=== PATIENT | male | born 1940 | race Caucasian/White ===

== ENCOUNTER 2018-04-22 14:08 | Outpatient (CLI) | payer OTHER, MEDICARE ==
[2018-04-22 14:52] LABS: TYPE AND SCREEN 1
== END 2018-04-22 16:30 | disposition home or self-care (01) ==
LOC: M INFU 14:08
DX: E85.9 Amyloidosis, unspecified (principal); N04.9 Nephrotic syndrome with unspecified morphologic changes; E03.9 Hypothyroidism, unspecified; M54.2 Cervicalgia; F32.9 Major depressive disorder, single episode, unspecified; E78.5 Hyperlipidemia, unspecified; Z79.82 Long term (current) use of aspirin; Z79.899 Other long term (current) drug therapy
CPT/HCPCS: P9047

== ENCOUNTER 2018-04-24 07:42 | Outpatient (CLI) | payer OTHER, MEDICARE ==
[2018-04-24 08:16] LABS: TYPE AND SCREEN 1
== END 2018-04-24 09:45 | disposition home or self-care (01) ==
LOC: M INFU 07:42
PROVIDERS: Orthopaedic Surgery
DX: E85.9 Amyloidosis, unspecified (principal); F32.9 Major depressive disorder, single episode, unspecified; E78.5 Hyperlipidemia, unspecified; N18.9 Chronic kidney disease, unspecified; E03.9 Hypothyroidism, unspecified; M54.2 Cervicalgia; K76.9 Liver disease, unspecified; N04.9 Nephrotic syndrome with unspecified morphologic changes; Z79.899 Other long term (current) drug therapy
CPT/HCPCS: P9047

== ENCOUNTER 2018-04-26 11:18 | Outpatient (CLI) | payer OTHER, MEDICARE ==
[2018-04-26 11:41] LABS: TYPE AND SCREEN 1
== END 2018-04-26 13:15 | disposition home or self-care (01) ==
LOC: M INFU 11:18
DX: E85.9 Amyloidosis, unspecified (principal); Z79.82 Long term (current) use of aspirin; Z79.899 Other long term (current) drug therapy
CPT/HCPCS: P9047

== ENCOUNTER 2018-04-29 12:01 | Outpatient (CLI) | payer OTHER, MEDICARE ==
[2018-04-29 12:30] LABS: TYPE AND SCREEN 1
== END 2018-04-29 14:10 | disposition home or self-care (01) ==
LOC: M INFU 12:01
DX: E85.9 Amyloidosis, unspecified (principal); Z79.82 Long term (current) use of aspirin; Z79.899 Other long term (current) drug therapy
CPT/HCPCS: P9047

== ENCOUNTER → 2018-04-30 | Outpatient (CLI) | payer OTHER, MEDICARE ==
[~2018-04-30] MED LIST: LIDOCAINE 2% MDV 20 ML VIAL As Ordered; MIDAZOLAM INJ 2 MG/2 ML VIAL (J2250) As Ordered; ceFAZolin 1GM INJ (J0690 PER 500MG) As Ordered; fentaNYL 100 MCG/2 ML INJECTION (J3010) As Ordered
== END | disposition home or self-care (01) ==
LOC: M IRPRO 09:30
DX: E85.81 Light chain (AL) amyloidosis (principal)
CPT/HCPCS: 36561

== ENCOUNTER 2018-05-01 11:21 | Outpatient (CLI) | payer OTHER, MEDICARE ==
[2018-05-01 11:59] LABS: TYPE AND SCREEN 1
[2018-05-01] MEDS: SODIUM CHLORIDE 0.9% INJ 10 ML SYR IV (13:08)
== END 2018-05-01 13:20 | disposition home or self-care (01) ==
LOC: M INFU 11:21
DX: E85.9 Amyloidosis, unspecified (principal); Z79.82 Long term (current) use of aspirin; Z79.899 Other long term (current) drug therapy
CPT/HCPCS: P9047

== ENCOUNTER 2018-05-03 11:24 | Outpatient (CLI) | payer OTHER, MEDICARE ==
[2018-05-03 13:01] LABS: TYPE AND SCREEN 1
[2018-05-03] MEDS: SODIUM CHLORIDE 0.9% INJ 10 ML SYR IV (14:22)
== END 2018-05-03 14:35 | disposition home or self-care (01) ==
LOC: M INFU 11:24
DX: E85.9 Amyloidosis, unspecified (principal); Z79.82 Long term (current) use of aspirin; Z79.899 Other long term (current) drug therapy
CPT/HCPCS: P9047

== ENCOUNTER 2018-05-10 12:25 | Outpatient (CLI) | payer OTHER, MEDICARE ==
[2018-05-10 12:55] LABS: TYPE AND SCREEN 1
[2018-05-10] MEDS: SODIUM CHLORIDE 0.9% INJ 10 ML SYR IV (13:54)
== END 2018-05-10 14:15 | disposition home or self-care (01) ==
LOC: M INFU 12:25
DX: E85.9 Amyloidosis, unspecified (principal); Z79.82 Long term (current) use of aspirin; Z79.899 Other long term (current) drug therapy
CPT/HCPCS: P9047

== ENCOUNTER 2018-05-13 11:10 | Outpatient (CLI) | payer OTHER, MEDICARE ==
[2018-05-13 11:26] LABS: TYPE AND SCREEN 1
== END 2018-05-13 13:00 | disposition home or self-care (01) ==
LOC: M INFU 11:10
DX: E85.9 Amyloidosis, unspecified (principal); Z79.82 Long term (current) use of aspirin; Z79.899 Other long term (current) drug therapy
CPT/HCPCS: P9047

== ENCOUNTER 2018-05-15 12:22 | Outpatient (CLI) | payer OTHER, MEDICARE ==
[2018-05-15 12:37] LABS: TYPE AND SCREEN 1
[2018-05-15] MEDS: SODIUM CHLORIDE 0.9% INJ 10 ML SYR IV (13:54)
== END 2018-05-15 14:00 | disposition home or self-care (01) ==
LOC: M INFU 12:22
DX: E85.9 Amyloidosis, unspecified (principal); Z79.82 Long term (current) use of aspirin; Z79.899 Other long term (current) drug therapy
CPT/HCPCS: P9047

== ENCOUNTER 2018-05-17 12:21 | Outpatient (CLI) | payer OTHER, MEDICARE ==
[2018-05-17 12:47] LABS: TYPE AND SCREEN 1
[2018-05-17] MEDS: SODIUM CHLORIDE 0.9% INJ 10 ML SYR IV (13:51)
== END 2018-05-17 14:00 | disposition home or self-care (01) ==
LOC: M INFU 12:21
DX: E85.9 Amyloidosis, unspecified (principal); Z79.82 Long term (current) use of aspirin; Z79.899 Other long term (current) drug therapy
CPT/HCPCS: P9047

== ENCOUNTER 2018-05-20 11:23 | Outpatient (CLI) | payer OTHER, MEDICARE ==
[2018-05-20 12:36] LABS: TYPE AND SCREEN 1
[2018-05-20] MEDS: SODIUM CHLORIDE 0.9% INJ 10 ML SYR IV (13:39)
== END 2018-05-20 14:15 | disposition home or self-care (01) ==
LOC: M INFU 11:23
DX: E85.9 Amyloidosis, unspecified (principal); Z79.82 Long term (current) use of aspirin; Z79.899 Other long term (current) drug therapy
CPT/HCPCS: P9047

== ENCOUNTER 2018-05-22 12:30 | Outpatient (CLI) | payer OTHER ==
[2018-05-22 12:48] LABS: TYPE AND SCREEN 1
[2018-05-22] MEDS: SODIUM CHLORIDE 0.9% INJ 10 ML SYR IV (14:00)
== END 2018-05-22 14:10 | disposition home or self-care (01) ==
LOC: M INFU 12:30
DX: E85.9 Amyloidosis, unspecified (principal); E78.5 Hyperlipidemia, unspecified; E03.9 Hypothyroidism, unspecified; N04.9 Nephrotic syndrome with unspecified morphologic changes; M54.2 Cervicalgia; Z79.82 Long term (current) use of aspirin; Z79.899 Other long term (current) drug therapy
CPT/HCPCS: P9047

== ENCOUNTER 2018-05-24 12:08 | Outpatient (CLI) | payer OTHER ==
[2018-05-24 12:22] LABS: TYPE AND SCREEN 1
[2018-05-24] MEDS: SODIUM CHLORIDE 0.9% INJ 10 ML SYR IV (13:50)
== END 2018-05-24 14:00 | disposition home or self-care (01) ==
LOC: M INFU 12:08
DX: E85.9 Amyloidosis, unspecified (principal); Z79.82 Long term (current) use of aspirin; Z79.899 Other long term (current) drug therapy; E78.5 Hyperlipidemia, unspecified; E03.9 Hypothyroidism, unspecified; R80.9 Proteinuria, unspecified
CPT/HCPCS: P9047

== ENCOUNTER 2018-05-27 12:26 | Outpatient (CLI) | payer OTHER ==
[2018-05-27 12:50] LABS: TYPE AND SCREEN 1
[2018-05-27] MEDS: SODIUM CHLORIDE 0.9% INJ 10 ML SYR IV (13:57)
== END 2018-05-27 14:20 | disposition home or self-care (01) ==
LOC: M INFU 12:26
DX: E85.9 Amyloidosis, unspecified (principal); E78.5 Hyperlipidemia, unspecified; E03.9 Hypothyroidism, unspecified; M54.2 Cervicalgia; Z79.899 Other long term (current) drug therapy
CPT/HCPCS: P9047

== ENCOUNTER 2018-05-29 10:50 | Outpatient (CLI) | payer OTHER ==
[~2018-05-29 10:50] MED LIST changes: -LIDOCAINE 2% MDV 20 ML VIAL As Ordered; -MIDAZOLAM INJ 2 MG/2 ML VIAL (J2250) As Ordered; +SODIUM CHLORIDE 0.9% INJ 10 ML SYR IV; -ceFAZolin 1GM INJ (J0690 PER 500MG) As Ordered; -fentaNYL 100 MCG/2 ML INJECTION (J3010) As Ordered
[2018-05-29 11:06] LABS: TYPE AND SCREEN 1
== END 2018-05-29 12:30 | disposition home or self-care (01) ==
LOC: M INFU 10:50
DX: E85.9 Amyloidosis, unspecified (principal); E78.5 Hyperlipidemia, unspecified; M54.2 Cervicalgia; N17.8 Other acute kidney failure; N04.9 Nephrotic syndrome with unspecified morphologic changes; E03.9 Hypothyroidism, unspecified; Z79.82 Long term (current) use of aspirin; Z79.899 Other long term (current) drug therapy
CPT/HCPCS: P9047

== ENCOUNTER 2018-05-31 11:38 | Outpatient (CLI) | payer OTHER ==
[2018-05-31 12:04] LABS: TYPE AND SCREEN 1
[2018-05-31] MEDS: SODIUM CHLORIDE 0.9% INJ 10 ML SYR IV (13:09)
== END 2018-05-31 13:30 | disposition home or self-care (01) ==
LOC: M INFU 11:38
DX: E85.9 Amyloidosis, unspecified (principal); Z79.82 Long term (current) use of aspirin; Z79.899 Other long term (current) drug therapy
CPT/HCPCS: P9047

== ENCOUNTER 2018-06-03 11:32 | Outpatient (CLI) | payer OTHER ==
[2018-06-03 11:44] LABS: TYPE AND SCREEN 1
[2018-06-03] MEDS: SODIUM CHLORIDE 0.9% INJ 10 ML SYR IV (13:05)
== END 2018-06-03 13:20 | disposition home or self-care (01) ==
LOC: M INFU 11:32
DX: E85.9 Amyloidosis, unspecified (principal); Z79.82 Long term (current) use of aspirin; Z79.899 Other long term (current) drug therapy
CPT/HCPCS: P9047

== ENCOUNTER 2018-06-05 10:46 | Outpatient (CLI) | payer OTHER, MEDICARE ==
[2018-06-05 11:07] LABS: TYPE AND SCREEN 1
[2018-06-05] MEDS: SODIUM CHLORIDE 0.9% INJ 10 ML SYR IV (12:10)
== END 2018-06-05 12:20 ==
LOC: M INFU 10:46
DX: E85.9 Amyloidosis, unspecified (principal); Z79.82 Long term (current) use of aspirin; Z79.899 Other long term (current) drug therapy
CPT/HCPCS: P9047

== ENCOUNTER 2018-06-07 10:47 | Outpatient (CLI) | payer OTHER, MEDICARE ==
[2018-06-07 11:10] LABS: TYPE AND SCREEN 1
== END 2018-06-07 12:35 | disposition home or self-care (01) ==
LOC: M INFU 10:47
DX: E85.9 Amyloidosis, unspecified (principal); Z79.82 Long term (current) use of aspirin; Z79.899 Other long term (current) drug therapy
CPT/HCPCS: P9047

== ENCOUNTER 2018-06-10 10:35 | Outpatient (CLI) | payer OTHER, MEDICARE ==
[2018-06-10 11:26] LABS: TYPE AND SCREEN 1
[2018-06-10] MEDS: SODIUM CHLORIDE 0.9% INJ 10 ML SYR IV (12:38)
== END 2018-06-10 12:45 | disposition home or self-care (01) ==
LOC: M INFU 10:35
DX: E85.9 Amyloidosis, unspecified (principal); Z79.82 Long term (current) use of aspirin; Z79.899 Other long term (current) drug therapy
CPT/HCPCS: P9047

== ENCOUNTER → 2018-06-11 | Outpatient (REF) | payer OTHER, MEDICARE ==
[2018-06-11 18:24] LABS: TOTAL PROTEIN,RANDOM URINE 2477.7 MG/DL (0.0-12.0); URINE TOTAL PROTEIN 2477.7 MG/DL (0-12)
[2018-06-12 12:03] LABS: ALBUMIN 1.98 GM/DL (3.29-5.55); ALBUMIN % 39.6 % (55.8-66.1); ALPHA-1-GLOBULIN % 7.2 % (2.9-4.9); ALPHA-2-GLOBULINS % 27.7 % (7.1-11.8); BETA-1-GLOBULINS % 5.4 % (4.7-7.2); BETA-2-GLOBULINS % 8.2 % (3.2-6.5); GAMMA GLOBULIN % 11.9 % (11.1-18.8)
[2018-06-12 12:04] LABS: ALPHA-1-GLOBULINS 0.36 GM/DL (0.17-0.41); ALPHA-2-GLOBULINS 1.39 GM/DL (0.42-0.99); BETA-1-GLOBULINS 0.27 GM/DL (0.28-0.60); BETA-2-GLOBULINS 0.41 GM/DL (0.19-0.55)
[2018-06-13 15:02] LABS: UPEP INTERPRETATION NO M-SPIKE NOTED; URINE VOLUME RANDOM ML
[2018-06-14 00:07] LABS: FREE KAPPA LIGHT CHAINS SERUM 66.4 mg/L (3.3-19.4); FREE LAMBDA LIGHT CHAINS SERUM 40.6 mg/L (5.7-26.3); KAPPA/LAMBDA RATIO SERUM 1.64 (0.26-1.65)
== END ==
LOC: M LAB REF 16:51
DX: E85.9 Amyloidosis, unspecified (principal)
CPT/HCPCS: 84165

== ENCOUNTER 2018-06-12 10:51 | Outpatient (CLI) | payer OTHER, MEDICARE ==
[2018-06-12 11:12] LABS: TYPE AND SCREEN 1
[2018-06-12] MEDS: SODIUM CHLORIDE 0.9% INJ 10 ML SYR IV (12:23)
== END 2018-06-12 12:30 | disposition home or self-care (01) ==
LOC: M INFU 10:51
DX: E85.9 Amyloidosis, unspecified (principal); Z79.82 Long term (current) use of aspirin; Z79.899 Other long term (current) drug therapy
CPT/HCPCS: P9047

== ENCOUNTER → 2018-06-13 | Outpatient (REF) | payer OTHER, MEDICARE ==
[2018-06-13 15:56] LABS: TOTAL VOLUME, URINE 2200 ML
[2018-06-13 16:44] LABS: TOTAL PROTEIN 24 HOUR URINE 24052.6 MG/24HR (50-150); URINE TOTAL PROTEIN 1093.3 MG/DL (0-12)
== END ==
LOC: M LAB REF 15:43
DX: C64.9 Malignant neoplasm of unspecified kidney, except renal pelvis (principal)
CPT/HCPCS: 81050

== ENCOUNTER 2018-06-14 10:42 | Outpatient (CLI) | payer OTHER, MEDICARE ==
[2018-06-14] MEDS: SODIUM CHLORIDE 0.9% INJ 10 ML SYR IV (09:00)
[2018-06-14 10:54] LABS: TYPE AND SCREEN 1
== END 2018-06-14 12:30 | disposition home or self-care (01) ==
LOC: M INFU 10:42
DX: E85.9 Amyloidosis, unspecified (principal); Z79.82 Long term (current) use of aspirin; Z79.899 Other long term (current) drug therapy
CPT/HCPCS: P9047

== ENCOUNTER 2018-06-17 10:57 | Outpatient (CLI) | payer OTHER, MEDICARE ==
[2018-06-17 11:15] LABS: TYPE AND SCREEN 1
== END 2018-06-17 12:50 | disposition home or self-care (01) ==
LOC: M INFU 10:57
DX: E85.9 Amyloidosis, unspecified (principal); Z79.82 Long term (current) use of aspirin; Z79.899 Other long term (current) drug therapy
CPT/HCPCS: P9047

== ENCOUNTER 2018-06-19 10:56 | Outpatient (CLI) | payer OTHER, MEDICARE ==
[2018-06-19 11:21] LABS: TYPE AND SCREEN 1
[2018-06-19] MEDS: SODIUM CHLORIDE 0.9% INJ 10 ML SYR IV (12:00)
== END 2018-06-19 12:35 | disposition home or self-care (01) ==
LOC: M INFU 10:56
DX: E85.9 Amyloidosis, unspecified (principal); I42.8 Other cardiomyopathies; E78.2 Mixed hyperlipidemia; N04.9 Nephrotic syndrome with unspecified morphologic changes; E03.9 Hypothyroidism, unspecified; F32.9 Major depressive disorder, single episode, unspecified; M54.2 Cervicalgia; Z79.82 Long term (current) use of aspirin; Z79.899 Other long term (current) drug therapy; Z96.659 Presence of unspecified artificial knee joint
CPT/HCPCS: P9047

== ENCOUNTER 2018-06-21 10:44 | Outpatient (CLI) | payer OTHER, MEDICARE ==
[2018-06-21 10:56] LABS: TYPE AND SCREEN 1
== END 2018-06-21 12:15 | disposition home or self-care (01) ==
LOC: M INFU 10:44
DX: E85.9 Amyloidosis, unspecified (principal); Z79.899 Other long term (current) drug therapy
CPT/HCPCS: P9047

== ENCOUNTER 2018-06-24 11:00 | Outpatient (CLI) | payer OTHER, MEDICARE ==
[2018-06-24 11:13] LABS: TYPE AND SCREEN 1
[2018-06-24] MEDS: SODIUM CHLORIDE 0.9% INJ 10 ML SYR IV (12:30)
== END 2018-06-24 12:45 | disposition home or self-care (01) ==
LOC: M INFU 11:00
DX: E85.9 Amyloidosis, unspecified (principal); Z79.899 Other long term (current) drug therapy; Z79.82 Long term (current) use of aspirin
CPT/HCPCS: P9047

== ENCOUNTER 2018-06-28 11:01 | Outpatient (CLI) | payer OTHER, MEDICARE ==
[2018-06-28 11:21] LABS: TYPE AND SCREEN 1
[2018-06-28] MEDS: SODIUM CHLORIDE 0.9% INJ 10 ML SYR IV (12:18)
== END 2018-06-28 12:45 | disposition home or self-care (01) ==
LOC: M INFU 11:01
DX: E85.9 Amyloidosis, unspecified (principal); E78.5 Hyperlipidemia, unspecified; I51.7 Cardiomegaly; N04.9 Nephrotic syndrome with unspecified morphologic changes; E03.9 Hypothyroidism, unspecified; M19.90 Unspecified osteoarthritis, unspecified site; M54.2 Cervicalgia; F32.9 Major depressive disorder, single episode, unspecified; Z79.899 Other long term (current) drug therapy
CPT/HCPCS: P9047

== ENCOUNTER 2018-07-01 11:01 | Outpatient (CLI) | payer OTHER, MEDICARE ==
[2018-07-01 11:15] LABS: TYPE AND SCREEN 1
== END 2018-07-01 12:45 | disposition home or self-care (01) ==
LOC: M INFU 11:01
DX: E85.9 Amyloidosis, unspecified (principal); E78.5 Hyperlipidemia, unspecified; E03.9 Hypothyroidism, unspecified; M19.90 Unspecified osteoarthritis, unspecified site; M54.89 Other dorsalgia; F32.9 Major depressive disorder, single episode, unspecified; Z79.82 Long term (current) use of aspirin; Z79.899 Other long term (current) drug therapy
CPT/HCPCS: P9047

== ENCOUNTER 2018-07-03 10:38 | Outpatient (CLI) | payer OTHER, MEDICARE ==
[2018-07-03 11:15] LABS: TYPE AND SCREEN 1
[2018-07-03] MEDS: SODIUM CHLORIDE 0.9% INJ 10 ML SYR IV (12:27)
== END 2018-07-03 12:35 | disposition home or self-care (01) ==
LOC: M INFU 10:38
DX: E85.9 Amyloidosis, unspecified (principal); E78.5 Hyperlipidemia, unspecified; N40.1 Benign prostatic hyperplasia with lower urinary tract symptoms; E03.9 Hypothyroidism, unspecified; M19.90 Unspecified osteoarthritis, unspecified site; M54.89 Other dorsalgia; Z79.82 Long term (current) use of aspirin; Z79.899 Other long term (current) drug therapy
CPT/HCPCS: P9047

== ENCOUNTER 2018-07-10 13:11 | Outpatient (CLI) | payer OTHER, MEDICARE ==
[2018-07-10 13:54] LABS: TYPE AND SCREEN 1
[2018-07-10] MEDS: SODIUM CHLORIDE 0.9% INJ 10 ML SYR IV (15:10)
== END 2018-07-10 15:10 | disposition home or self-care (01) ==
LOC: M INFU 13:11
DX: E85.9 Amyloidosis, unspecified (principal); E78.5 Hyperlipidemia, unspecified; E03.9 Hypothyroidism, unspecified; N40.0 Benign prostatic hyperplasia without lower urinary tract symptoms; Z79.82 Long term (current) use of aspirin; Z79.899 Other long term (current) drug therapy
CPT/HCPCS: 83883

== ENCOUNTER 2018-07-12 10:58 | Outpatient (CLI) | payer OTHER ==
[2018-07-12 11:27] LABS: TYPE AND SCREEN 1
[2018-07-12] MEDS: SODIUM CHLORIDE 0.9% INJ 10 ML SYR IV (12:25)
== END 2018-07-12 12:45 | disposition home or self-care (01) ==
LOC: M INFU 10:58
DX: E85.9 Amyloidosis, unspecified (principal); E78.5 Hyperlipidemia, unspecified; N40.0 Benign prostatic hyperplasia without lower urinary tract symptoms; E03.9 Hypothyroidism, unspecified; F32.9 Major depressive disorder, single episode, unspecified; Z79.899 Other long term (current) drug therapy
CPT/HCPCS: P9047

== ENCOUNTER 2018-07-15 10:49 | Outpatient (CLI) | payer OTHER ==
[2018-07-15 11:27] LABS: TYPE AND SCREEN 1
[2018-07-15] MEDS: SODIUM CHLORIDE 0.9% INJ 10 ML SYR IV (12:23)
== END 2018-07-15 13:10 | disposition home or self-care (01) ==
LOC: M INFU 10:49
DX: E85.9 Amyloidosis, unspecified (principal); E78.5 Hyperlipidemia, unspecified; N40.0 Benign prostatic hyperplasia without lower urinary tract symptoms; E03.9 Hypothyroidism, unspecified; F32.9 Major depressive disorder, single episode, unspecified; Z79.899 Other long term (current) drug therapy
CPT/HCPCS: P9047

== ENCOUNTER 2018-07-18 11:06 | Outpatient (CLI) | payer OTHER ==
[2018-07-18 11:40] LABS: TYPE AND SCREEN 1
[2018-07-18] MEDS: SODIUM CHLORIDE 0.9% INJ 10 ML SYR IV (12:39)
== END 2018-07-18 12:45 | disposition home or self-care (01) ==
LOC: M INFU 11:06
DX: E85.9 Amyloidosis, unspecified (principal); Z79.82 Long term (current) use of aspirin; Z79.899 Other long term (current) drug therapy
CPT/HCPCS: P9047

== ENCOUNTER 2018-07-22 10:38 | Outpatient (CLI) | payer OTHER ==
[2018-07-22 11:09] LABS: TYPE AND SCREEN 1
[2018-07-22] MEDS: SODIUM CHLORIDE 0.9% INJ 10 ML SYR IV (12:01)
== END 2018-07-22 12:25 | disposition home or self-care (01) ==
LOC: M INFU 10:38
DX: E85.9 Amyloidosis, unspecified (principal); E78.5 Hyperlipidemia, unspecified; N40.0 Benign prostatic hyperplasia without lower urinary tract symptoms; E03.9 Hypothyroidism, unspecified; M12.9 Arthropathy, unspecified; Z79.82 Long term (current) use of aspirin; Z79.899 Other long term (current) drug therapy
CPT/HCPCS: P9047

== ENCOUNTER 2018-07-25 15:18 | Outpatient (CLI) | payer OTHER ==
[2018-07-25 15:35] LABS: TYPE AND SCREEN 1
[2018-07-25] MEDS: SODIUM CHLORIDE 0.9% INJ 10 ML SYR IV (16:49)
== END 2018-07-25 17:00 ==
LOC: M INFU 15:18
DX: E85.9 Amyloidosis, unspecified (principal); E78.5 Hyperlipidemia, unspecified; M12.9 Arthropathy, unspecified; F32.9 Major depressive disorder, single episode, unspecified; Z79.82 Long term (current) use of aspirin; Z79.899 Other long term (current) drug therapy
CPT/HCPCS: P9047

== ENCOUNTER 2018-07-29 11:00 | Outpatient (CLI) | payer OTHER ==
[2018-07-29 10:55] LABS: TYPE AND SCREEN 1
[2018-07-29] MEDS: SODIUM CHLORIDE 0.9% INJ 10 ML SYR IV (12:00)
== END 2018-07-29 12:30 | disposition home or self-care (01) ==
LOC: M INFU 11:00
DX: E85.9 Amyloidosis, unspecified (principal); E78.9 Disorder of lipoprotein metabolism, unspecified; N40.0 Benign prostatic hyperplasia without lower urinary tract symptoms; E03.9 Hypothyroidism, unspecified; M12.9 Arthropathy, unspecified; Z79.82 Long term (current) use of aspirin; Z79.899 Other long term (current) drug therapy
CPT/HCPCS: P9047

== ENCOUNTER 2018-08-01 10:37 | Outpatient (CLI) | payer OTHER ==
[2018-08-01 10:48] LABS: TYPE AND SCREEN 1
== END 2018-08-01 12:10 | disposition home or self-care (01) ==
LOC: M INFU 10:37
DX: E85.9 Amyloidosis, unspecified (principal)
CPT/HCPCS: P9047

== ENCOUNTER → 2018-08-05 | Outpatient (CLI) | payer OTHER ==
[2018-08-05 11:28] LABS: TYPE AND SCREEN 1
[2018-08-05] MEDS: SODIUM CHLORIDE 0.9% INJ 10 ML SYR IV (12:17)
== END ==
LOC: M INFU 10:57
DX: E85.9 Amyloidosis, unspecified (principal)
CPT/HCPCS: P9047

== ENCOUNTER 2018-08-08 10:35 | Outpatient (CLI) | payer OTHER ==
[2018-08-08 11:03] LABS: TYPE AND SCREEN 1
== END 2018-08-08 12:45 | disposition home or self-care (01) ==
LOC: M INFU 10:35
DX: E85.9 Amyloidosis, unspecified (principal)
CPT/HCPCS: P9047

== ENCOUNTER 2018-08-12 10:51 | Outpatient (CLI) | payer OTHER ==
[2018-08-12 11:13] LABS: TYPE AND SCREEN 1
[2018-08-12] MEDS: SODIUM CHLORIDE 0.9% INJ 10 ML SYR IV (12:25)
== END 2018-08-12 12:35 | disposition home or self-care (01) ==
LOC: M INFU 10:51
DX: E85.9 Amyloidosis, unspecified (principal); E78.5 Hyperlipidemia, unspecified; N18.9 Chronic kidney disease, unspecified; Z92.21 Personal history of antineoplastic chemotherapy
CPT/HCPCS: P9047

== ENCOUNTER 2018-08-15 10:57 | Outpatient (CLI) | payer OTHER ==
[2018-08-15 11:42] LABS: TYPE AND SCREEN 1
== END 2018-08-15 13:05 | disposition home or self-care (01) ==
LOC: M INFU 10:57
DX: E85.9 Amyloidosis, unspecified (principal)
CPT/HCPCS: P9047

== ENCOUNTER 2018-08-19 10:51 | Outpatient (CLI) | payer OTHER ==
[2018-08-19 11:08] LABS: TYPE AND SCREEN 1
== END 2018-08-19 12:20 | disposition home or self-care (01) ==
LOC: M INFU 10:51
DX: E85.9 Amyloidosis, unspecified (principal)
CPT/HCPCS: P9047

== ENCOUNTER 2018-08-22 10:51 | Outpatient (CLI) | payer OTHER, MEDICARE ==
[2018-08-22 11:16] LABS: TYPE AND SCREEN 1
[2018-08-22] MEDS: SODIUM CHLORIDE 0.9% INJ 10 ML SYR IV (12:02)
== END 2018-08-22 12:45 | disposition home or self-care (01) ==
LOC: M INFU 10:51
DX: E85.9 Amyloidosis, unspecified (principal)
CPT/HCPCS: P9047

== ENCOUNTER 2018-08-26 11:08 | Outpatient (CLI) | payer OTHER, MEDICARE ==
[2018-08-26 11:28] LABS: TYPE AND SCREEN 1
[2018-08-26] MEDS: SODIUM CHLORIDE 0.9% INJ 10 ML SYR IV (12:39)
== END 2018-08-26 13:00 | disposition home or self-care (01) ==
LOC: M INFU 11:08
DX: E85.9 Amyloidosis, unspecified (principal); N18.9 Chronic kidney disease, unspecified; M12.9 Arthropathy, unspecified; E78.5 Hyperlipidemia, unspecified; N40.0 Benign prostatic hyperplasia without lower urinary tract symptoms; Z79.899 Other long term (current) drug therapy; Z92.21 Personal history of antineoplastic chemotherapy
CPT/HCPCS: P9047

== ENCOUNTER 2018-08-29 10:48 | Outpatient (CLI) | payer OTHER, MEDICARE ==
[2018-08-29 11:08] LABS: TYPE AND SCREEN 1
[2018-08-29] MEDS: SODIUM CHLORIDE 0.9% INJ 10 ML SYR IV (12:06)
== END 2018-08-29 12:20 | disposition home or self-care (01) ==
LOC: M INFU 10:48
DX: E85.9 Amyloidosis, unspecified (principal); D72.829 Elevated white blood cell count, unspecified; E78.5 Hyperlipidemia, unspecified; N18.9 Chronic kidney disease, unspecified; Z79.82 Long term (current) use of aspirin; Z79.899 Other long term (current) drug therapy
CPT/HCPCS: P9047

== ENCOUNTER 2018-09-02 10:36 | Outpatient (CLI) | payer OTHER, MEDICARE ==
[2018-09-02 11:15] LABS: TYPE AND SCREEN 1
[2018-09-02] MEDS: SODIUM CHLORIDE 0.9% INJ 10 ML SYR IV (12:37)
== END 2018-09-02 12:45 | disposition home or self-care (01) ==
LOC: M INFU 10:36
DX: E85.9 Amyloidosis, unspecified (principal)
CPT/HCPCS: P9047

== ENCOUNTER 2018-09-05 10:43 | Outpatient (CLI) | payer OTHER, MEDICARE ==
[2018-09-05 10:48] LABS: TYPE AND SCREEN 1
[2018-09-05] MEDS: SODIUM CHLORIDE 0.9% INJ 10 ML SYR IV (11:42)
== END 2018-09-05 12:15 | disposition home or self-care (01) ==
LOC: M INFU 10:43
DX: E85.9 Amyloidosis, unspecified (principal)
CPT/HCPCS: P9047

== ENCOUNTER 2018-09-09 10:45 | Outpatient (CLI) | payer OTHER, MEDICARE ==
[2018-09-09 11:03] LABS: TYPE AND SCREEN 1
[2018-09-09] MEDS: SODIUM CHLORIDE 0.9% INJ 10 ML SYR IV (12:35)
== END 2018-09-09 12:45 | disposition home or self-care (01) ==
LOC: M INFU 10:45
DX: E85.9 Amyloidosis, unspecified (principal); Z79.899 Other long term (current) drug therapy
CPT/HCPCS: P9047

== ENCOUNTER 2018-09-12 10:50 | Outpatient (CLI) | payer OTHER, MEDICARE ==
[2018-09-12 10:52] LABS: TYPE AND SCREEN 1
== END 2018-09-12 12:15 | disposition home or self-care (01) ==
LOC: M INFU 10:50
DX: E85.9 Amyloidosis, unspecified (principal)
CPT/HCPCS: P9047

== ENCOUNTER 2018-09-16 10:44 | Outpatient (CLI) | payer OTHER, MEDICARE ==
[2018-09-16 10:51] LABS: TYPE AND SCREEN 1
[2018-09-16] MEDS: SODIUM CHLORIDE 0.9% INJ 10 ML SYR IV (11:40)
== END 2018-09-16 12:15 | disposition home or self-care (01) ==
LOC: M INFU 10:44
DX: E85.9 Amyloidosis, unspecified (principal)
CPT/HCPCS: P9047

== ENCOUNTER 2018-09-19 11:01 | Outpatient (CLI) | payer OTHER, MEDICARE ==
[~2018-09-19] VITALS: Ht 188 cm; Wt 72.0 kg
[~2018-09-19 11:01] MED LIST changes: +ACET1TAB55 PO; +ACYC200C8 PO; +AMOX500C PO; +ASPI81TA85 PO; +ATOR80TA59 PO; +B-12500T2 PO; +D32000TA PO; +FLUC100T PO; +FURO20TA2 PO; +FURO40TA2 PO; +LEVO2TA PO; +LISI10TA4 PO; +LISI40TA PO; +MIDO10TA PO; +NAPR-885 PO; +RAMI1CAP21 PO; +SILD100T PO; -SODIUM CHLORIDE 0.9% INJ 10 ML SYR IV; +SODIUM CHLORIDE 0.9% INJ 10 ML SYR IV SCH; +SPIR50TA4 PO; +TORS20TA2 PO; +[UNRECOGNIZED DRUG - CODE] XX
[2018-09-19 11:20] VITALS: BP 115/67
[2018-09-19 12:50] VITALS: BP 106/59
== END 2018-09-19 12:50 | disposition home or self-care (01) ==
LOC: M INFU 11:01
PROVIDERS: ATTEND Internal Medicine Hematology & Oncology
DX: E85.89 Other amyloidosis (principal); N18.9 Chronic kidney disease, unspecified; Z79.82 Long term (current) use of aspirin; Z79.899 Other long term (current) drug therapy
CPT/HCPCS: 96365; P9047

== ENCOUNTER 2018-09-23 10:59 | Outpatient (CLI) | payer OTHER, MEDICARE ==
[~2018-09-23] VITALS: Ht 188 cm; Wt 72.0 kg
[2018-09-23 11:00] VITALS: BP 119/63
[2018-09-23 12:35] VITALS: BP 120/53
== END 2018-09-23 12:30 | disposition home or self-care (01) ==
LOC: M INFU 10:59
PROVIDERS: ATTEND Internal Medicine Hematology & Oncology
DX: E85.9 Amyloidosis, unspecified (principal)
CPT/HCPCS: 96365; P9047

== ENCOUNTER 2018-09-25 10:47 | Outpatient (CLI) | payer OTHER, MEDICARE ==
[~2018-09-25] VITALS: Ht 182.9 cm; Wt 77.3 kg
[2018-09-25 10:55] VITALS: BP 116/67
[2018-09-25] MEDS ORDERED: SODIUM CHLORIDE 0.9% INJ 10 ML SYR IV PRN (11:00)
[2018-09-25 11:50] VITALS: BP 117/57
[2018-09-25 12:45] VITALS: BP 116/67
[2018-09-26] MEDS ORDERED: SODIUM CHLORIDE 0.9% INJ 10 ML SYR IV SCH (09:00)
== END 2018-09-25 12:45 | disposition home or self-care (01) ==
LOC: M INFU 10:47
PROVIDERS: ATTEND Internal Medicine Hematology & Oncology
DX: E85.9 Amyloidosis, unspecified (principal)
CPT/HCPCS: 96365; P9047

== ENCOUNTER 2018-09-30 10:52 | Outpatient (CLI) | payer OTHER, MEDICARE ==
[~2018-09-30] VITALS: Ht 182.9 cm; Wt 77.3 kg
[2018-09-30 11:00] VITALS: BP 119/68
[2018-09-30 11:30] VITALS: BP 110/55
[2018-09-30 12:10] VITALS: BP 113/56
== END 2018-09-30 12:20 | disposition home or self-care (01) ==
LOC: M INFU 10:52
PROVIDERS: ATTEND Internal Medicine Hematology & Oncology
DX: E85.9 Amyloidosis, unspecified (principal)
CPT/HCPCS: 96365; P9047

== ENCOUNTER 2018-10-03 10:57 | Outpatient (CLI) | payer OTHER, MEDICARE ==
[~2018-10-03] VITALS: Ht 182.9 cm; Wt 77.3 kg
[2018-10-03 11:00] VITALS: BP 117/66
[2018-10-03 11:45] VITALS: BP 111/61
[2018-10-03 12:35] VITALS: BP 128/75
== END 2018-10-03 12:35 | disposition home or self-care (01) ==
LOC: M INFU 10:57
PROVIDERS: ATTEND Internal Medicine Hematology & Oncology
DX: E85.9 Amyloidosis, unspecified (principal)
CPT/HCPCS: 96365; P9047

== ENCOUNTER 2018-10-07 10:58 | Outpatient (CLI) | payer OTHER, MEDICARE ==
[~2018-10-07] VITALS: Ht 182.9 cm; Wt 77.3 kg
[2018-10-07 11:20] VITALS: BP 118/76
[2018-10-07 11:45] VITALS: BP 103/55
[2018-10-07 12:25] VITALS: BP 101/56
== END 2018-10-07 12:55 | disposition home or self-care (01) ==
LOC: M INFU 10:58
PROVIDERS: ATTEND Internal Medicine Hematology & Oncology
DX: E85.9 Amyloidosis, unspecified (principal)
CPT/HCPCS: 96365; P9047

== ENCOUNTER 2018-10-10 10:45 | Outpatient (CLI) | payer OTHER, MEDICARE ==
[~2018-10-10] VITALS: Ht 188 cm; Wt 77.3 kg
[2018-10-10 10:57] VITALS: BP 111/65
[2018-10-10 12:10] VITALS: BP 121/57
== END 2018-10-10 12:30 | disposition home or self-care (01) ==
LOC: M INFU 10:45
PROVIDERS: ATTEND Internal Medicine Hematology & Oncology
DX: E85.9 Amyloidosis, unspecified (principal)
CPT/HCPCS: 96365; P9047

== ENCOUNTER 2018-10-14 10:45 | Outpatient (CLI) | payer OTHER, MEDICARE ==
[~2018-10-14] VITALS: Ht 188 cm; Wt 77.3 kg
[2018-10-14 10:50] VITALS: BP 121/65
[2018-10-14 11:45] VITALS: BP 100/54
[2018-10-14 12:30] VITALS: BP 118/59
== END 2018-10-14 12:30 | disposition home or self-care (01) ==
LOC: M INFU 10:45
PROVIDERS: ATTEND Internal Medicine Hematology & Oncology
DX: E85.9 Amyloidosis, unspecified (principal)
CPT/HCPCS: 96365; P9047

== ENCOUNTER 2018-10-17 10:07 | Outpatient (CLI) | payer OTHER, MEDICARE ==
[~2018-10-17] VITALS: Ht 182.9 cm; Wt 77.3 kg
[2018-10-17 10:15] VITALS: BP 137/61
[2018-10-17 10:55] VITALS: BP 99/56
[2018-10-17 11:40] VITALS: BP 101/50
== END 2018-10-17 12:00 | disposition home or self-care (01) ==
LOC: M INFU 10:07
PROVIDERS: ATTEND Internal Medicine Hematology & Oncology
DX: E85.9 Amyloidosis, unspecified (principal)
CPT/HCPCS: 96365; P9047

== ENCOUNTER 2018-10-21 10:45 | Outpatient (CLI) | payer OTHER, MEDICARE ==
[~2018-10-21] VITALS: Ht 182.9 cm; Wt 77.3 kg
[2018-10-21 10:50] VITALS: BP 106/59
[2018-10-21 11:55] VITALS: BP 105/52
[2018-10-21 12:50] VITALS: BP 107/53
== END 2018-10-21 12:50 | disposition home or self-care (01) ==
LOC: M INFU 10:45
PROVIDERS: ATTEND Internal Medicine Hematology & Oncology
DX: E85.9 Amyloidosis, unspecified (principal)
CPT/HCPCS: 96365; P9047

== ENCOUNTER 2018-10-24 11:06 | Outpatient (CLI) | payer OTHER, MEDICARE ==
[~2018-10-24] VITALS: Ht 188 cm; Wt 77.3 kg
[2018-10-24 11:20] VITALS: BP 113/58
[2018-10-24 11:55] VITALS: BP 126/75
[2018-10-24 12:31] VITALS: BP 119/55
== END 2018-10-24 12:45 | disposition home or self-care (01) ==
LOC: M INFU 11:06
PROVIDERS: ATTEND Internal Medicine Hematology & Oncology
DX: E85.9 Amyloidosis, unspecified (principal)
CPT/HCPCS: 96365; P9047

== ENCOUNTER 2018-10-31 11:08 | Outpatient (CLI) | payer OTHER, MEDICARE ==
[~2018-10-31] VITALS: Ht 182.9 cm; Wt 77.3 kg
[2018-10-31 11:15] VITALS: BP 131/56
[2018-10-31 12:15] VITALS: BP 116/58
== END 2018-10-31 12:35 | disposition home or self-care (01) ==
LOC: M INFU 11:08
PROVIDERS: ATTEND Internal Medicine Hematology & Oncology
DX: E85.9 Amyloidosis, unspecified (principal)
CPT/HCPCS: 96365; P9047

== ENCOUNTER 2018-11-07 10:55 | Outpatient (CLI) | payer OTHER, MEDICARE ==
[~2018-11-07] VITALS: Ht 182.9 cm; Wt 77.3 kg
[2018-11-07 11:00] VITALS: BP 120/59
[2018-11-07 11:45] VITALS: BP 99/55
[2018-11-07 12:45] VITALS: BP_SYST 115; BP_SYST 120; BP_DIAS 57; BP_DIAS 59
== END 2018-11-07 12:45 | disposition home or self-care (01) ==
LOC: M INFU 10:55
PROVIDERS: ATTEND Internal Medicine Hematology & Oncology
DX: E85.9 Amyloidosis, unspecified (principal)
CPT/HCPCS: 96365; P9047

== ENCOUNTER 2018-11-11 12:17 | Outpatient (CLI) | payer OTHER, MEDICARE ==
[~2018-11-11] VITALS: Ht 182.9 cm; Wt 77.3 kg
[2018-11-11 12:25] VITALS: BP 126/66
[2018-11-11 13:15] VITALS: BP 135/59
[2018-11-11 13:40] VITALS: BP 107/54
[2018-11-11 14:10] VITALS: BP 101/53
== END 2018-11-11 14:10 | disposition home or self-care (01) ==
LOC: M INFU 12:17
PROVIDERS: ATTEND Internal Medicine Hematology & Oncology
DX: E85.9 Amyloidosis, unspecified (principal)
CPT/HCPCS: 96365; P9047

== ENCOUNTER 2018-11-14 10:56 | Outpatient (CLI) | payer OTHER, MEDICARE ==
[~2018-11-14] VITALS: Ht 182.9 cm; Wt 77.3 kg
[2018-11-14 11:40] VITALS: BP 118/58
[2018-11-14 12:00] VITALS: BP 111/60
[2018-11-14 12:30] VITALS: BP 109/54
== END 2018-11-14 12:45 | disposition home or self-care (01) ==
LOC: M INFU 10:56
PROVIDERS: ATTEND Internal Medicine Hematology & Oncology
DX: E85.9 Amyloidosis, unspecified (principal)
CPT/HCPCS: 96365; P9047

== ENCOUNTER 2018-11-18 10:13 | Outpatient (CLI) | payer OTHER, MEDICARE ==
[~2018-11-18] VITALS: Ht 182.9 cm; Wt 77.3 kg
[2018-11-18 10:20] VITALS: BP 116/61
[2018-11-18 10:55] VITALS: BP 80/44
[2018-11-18 11:40] VITALS: BP 102/56
== END 2018-11-18 11:40 | disposition home or self-care (01) ==
LOC: M INFU 10:13
PROVIDERS: ATTEND Internal Medicine Hematology & Oncology
DX: E85.9 Amyloidosis, unspecified (principal)
CPT/HCPCS: 96365; P9047

== ENCOUNTER 2018-11-21 10:27 | Outpatient (CLI) | payer OTHER, MEDICARE ==
[~2018-11-21] VITALS: Ht 182.9 cm; Wt 77.3 kg
[~2018-11-21 10:27] MED LIST changes: -SODIUM CHLORIDE 0.9% INJ 10 ML SYR IV SCH
[2018-11-21 10:35] VITALS: BP 98/62
== END 2018-11-21 12:15 | disposition home or self-care (01) ==
LOC: M INFU 10:27
PROVIDERS: ATTEND Internal Medicine Medical Oncology
DX: E85.9 Amyloidosis, unspecified (principal)
CPT/HCPCS: 96365; P9047

== ENCOUNTER 2018-11-25 10:46 | Outpatient (CLI) | payer OTHER, MEDICARE ==
[~2018-11-25] VITALS: Ht 182.9 cm; Wt 77.3 kg
[~2018-11-25 10:46] MED LIST changes: +SODIUM CHLORIDE 0.9% INJ 10 ML SYR IV SCH
[2018-11-25 10:55] VITALS: BP 120/56
[2018-11-25 11:35] VITALS: BP 111/58
[2018-11-25 12:30] VITALS: BP 115/54
== END 2018-11-25 12:30 | disposition home or self-care (01) ==
LOC: M INFU 10:46
PROVIDERS: ATTEND Internal Medicine Medical Oncology
DX: E85.9 Amyloidosis, unspecified (principal)
CPT/HCPCS: 96365; P9047

== ENCOUNTER 2018-11-28 10:14 | Outpatient (CLI) | payer OTHER, MEDICARE ==
[~2018-11-28] VITALS: Ht 182.9 cm; Wt 77.3 kg
[2018-11-28 11:00] VITALS: BP 123/80
[2018-11-28 11:35] VITALS: BP 108/55
[2018-11-28 12:30] VITALS: BP 110/58
== END 2018-11-28 12:30 | disposition home or self-care (01) ==
LOC: M INFU 10:14
PROVIDERS: ATTEND Internal Medicine Medical Oncology
DX: E85.9 Amyloidosis, unspecified (principal)
CPT/HCPCS: 96365; P9047

== ENCOUNTER 2018-12-02 10:17 | Outpatient (CLI) | payer OTHER, MEDICARE ==
[~2018-12-02] VITALS: Ht 182.9 cm; Wt 77.3 kg
[2018-12-02 11:45] VITALS: BP 116/58
[2018-12-02 12:05] VITALS: BP 104/50
[2018-12-02 13:00] VITALS: BP 104/50
== END 2018-12-02 13:10 | disposition home or self-care (01) ==
LOC: M INFU 10:17
PROVIDERS: ATTEND Internal Medicine Medical Oncology
DX: E85.9 Amyloidosis, unspecified (principal)
CPT/HCPCS: 96365; P9047

== ENCOUNTER 2018-12-05 10:25 | Outpatient (CLI) | payer OTHER, MEDICARE ==
[~2018-12-05] VITALS: Ht 182.9 cm; Wt 77.3 kg
[2018-12-05 10:40] VITALS: BP 113/63
[2018-12-05 11:10] VITALS: BP 113/55
[2018-12-05 11:55] VITALS: BP 104/53
== END 2018-12-05 12:25 | disposition home or self-care (01) ==
LOC: M INFU 10:25
PROVIDERS: ATTEND Internal Medicine Medical Oncology
DX: E85.9 Amyloidosis, unspecified (principal)
CPT/HCPCS: 96365; P9047

== ENCOUNTER 2018-12-09 11:25 | Outpatient (CLI) | payer OTHER, MEDICARE ==
[~2018-12-09] VITALS: Ht 182.9 cm; Wt 77.3 kg
[2018-12-09 11:30] VITALS: BP 124/71
[2018-12-09 12:00] VITALS: BP 116/59
[2018-12-09 12:45] VITALS: BP 112/53
== END 2018-12-09 13:15 | disposition home or self-care (01) ==
LOC: M INFU 11:25
PROVIDERS: ATTEND Internal Medicine Medical Oncology
DX: E85.9 Amyloidosis, unspecified (principal)
CPT/HCPCS: 96365; P9047

== ENCOUNTER 2018-12-12 10:17 | Outpatient (CLI) | payer OTHER, MEDICARE ==
[~2018-12-12] VITALS: Ht 190.5 cm; Wt 77.3 kg
[2018-12-12 10:54] VITALS: BP 107/63
[2018-12-12 12:01] VITALS: BP 114/56
== END 2018-12-12 12:00 | disposition home or self-care (01) ==
LOC: M INFU 10:17
PROVIDERS: ATTEND Internal Medicine Medical Oncology
DX: E85.9 Amyloidosis, unspecified (principal)
CPT/HCPCS: 96365; P9047

== ENCOUNTER 2018-12-16 10:17 | Outpatient (CLI) | payer OTHER, MEDICARE ==
[~2018-12-16] VITALS: Ht 182.9 cm; Wt 77.3 kg
[2018-12-16 10:51] VITALS: BP 123/60
[2018-12-16 11:20] VITALS: BP 110/60
[2018-12-16 12:28] VITALS: BP 114/56
[2019-01-28] MEDS ORDERED: NAPR-50 PO (00:17)
== END 2018-12-16 12:30 | disposition home or self-care (01) ==
LOC: M INFU 10:17
PROVIDERS: ATTEND Internal Medicine Medical Oncology
DX: E85.9 Amyloidosis, unspecified (principal)
CPT/HCPCS: 96365; P9047

== ENCOUNTER 2018-12-19 10:13 | Outpatient (CLI) | payer OTHER, MEDICARE ==
[~2018-12-19] VITALS: Ht 182.9 cm; Wt 77.3 kg
[2018-12-19 10:15] VITALS: BP 113/73
[2018-12-19 10:20] VITALS: BP 116/57
[2018-12-19 11:58] VITALS: BP 98/55
[2018-12-19 12:20] VITALS: BP 109/57
== END 2018-12-19 12:20 | disposition home or self-care (01) ==
LOC: M INFU 10:13
PROVIDERS: ATTEND Internal Medicine Medical Oncology
DX: E85.9 Amyloidosis, unspecified (principal)
CPT/HCPCS: 96365; P9047

== ENCOUNTER 2018-12-23 10:21 | Outpatient (CLI) | payer OTHER, MEDICARE ==
[~2018-12-23] VITALS: Ht 188 cm; Wt 77.3 kg
[2018-12-23 10:37] VITALS: BP 114/74
[2018-12-23 11:01] VITALS: BP 105/55
[2018-12-23 11:30] VITALS: BP 118/56
== END 2018-12-23 12:10 | disposition home or self-care (01) ==
LOC: M INFU 10:21
PROVIDERS: ATTEND Internal Medicine Medical Oncology
DX: E85.9 Amyloidosis, unspecified (principal)
CPT/HCPCS: 96365; P9047

== ENCOUNTER 2018-12-26 10:35 | Outpatient (CLI) | payer OTHER, MEDICARE ==
[~2018-12-26] VITALS: Ht 188 cm; Wt 77.3 kg
[2018-12-26 10:47] VITALS: BP 113/73
[2018-12-26 12:00] VITALS: BP 124/64
== END 2018-12-26 12:15 | disposition home or self-care (01) ==
LOC: M INFU 10:35
PROVIDERS: ATTEND Internal Medicine Medical Oncology
DX: E85.9 Amyloidosis, unspecified (principal); Z79.82 Long term (current) use of aspirin; Z79.899 Other long term (current) drug therapy
CPT/HCPCS: 96365; P9047

== ENCOUNTER → 2018-12-27 | Outpatient (REF) | payer MEDICARE ==
[~2018-12-27] MED LIST changes: -SODIUM CHLORIDE 0.9% INJ 10 ML SYR IV SCH
[2018-12-31 23:11] LABS: URINE TOTAL PROTEIN 1434.1 MG/DL (0-12)
[2018-12-31 23:12] LABS: TOTAL PROTEIN 24 HOUR URINE 23662.6 MG/24HR (50-150)
== END ==
LOC: M LAB REF 15:32
PROVIDERS: ATTEND Internal Medicine Hematology & Oncology
DX: Z13.9 Encounter for screening, unspecified (principal)

== ENCOUNTER 2018-12-31 12:46 | Outpatient (CLI) | payer OTHER, MEDICARE ==
[~2018-12-31] VITALS: Ht 182.9 cm; Wt 77.3 kg
[~2018-12-31 12:46] MED LIST changes: +SODIUM CHLORIDE 0.9% INJ 10 ML SYR IV SCH
[2018-12-31 12:59] VITALS: BP 127/63
[2018-12-31 13:45] VITALS: BP 110/60
[2018-12-31 14:30] VITALS: BP 112/58
== END 2018-12-31 14:55 | disposition home or self-care (01) ==
LOC: M INFU 12:46
PROVIDERS: ATTEND Internal Medicine Medical Oncology
DX: E85.9 Amyloidosis, unspecified (principal)
CPT/HCPCS: 96365; P9047

== ENCOUNTER 2019-01-02 10:28 | Outpatient (CLI) | payer OTHER, MEDICARE ==
[~2019-01-02] VITALS: Ht 182.9 cm; Wt 77.3 kg
[2019-01-02 10:35] VITALS: BP 132/60
[2019-01-02 12:00] VITALS: BP 109/56
== END 2019-01-02 12:10 | disposition home or self-care (01) ==
LOC: M INFU 10:28
PROVIDERS: ATTEND Internal Medicine Medical Oncology
DX: E85.9 Amyloidosis, unspecified (principal)
CPT/HCPCS: 96365; P9047

== ENCOUNTER 2019-01-06 10:28 | Outpatient (CLI) | payer OTHER, MEDICARE ==
[~2019-01-06] VITALS: Ht 182.9 cm; Wt 77.3 kg
[2019-01-06 10:35] VITALS: BP 112/63
[2019-01-06 11:52] VITALS: BP 110/60
== END 2019-01-06 11:53 | disposition home or self-care (01) ==
LOC: M INFU 10:28
PROVIDERS: ATTEND Internal Medicine Medical Oncology
DX: E85.9 Amyloidosis, unspecified (principal)
CPT/HCPCS: 96365; P9047

== ENCOUNTER 2019-01-09 10:13 | Outpatient (CLI) | payer OTHER, MEDICARE ==
[~2019-01-09] VITALS: Ht 188 cm; Wt 77.3 kg
[2019-01-09 10:20] VITALS: BP 126/60
[2019-01-09 12:20] VITALS: BP 118/62
== END 2019-01-09 12:35 | disposition home or self-care (01) ==
LOC: M INFU 10:13
PROVIDERS: ATTEND Internal Medicine Medical Oncology
DX: E85.9 Amyloidosis, unspecified (principal)
CPT/HCPCS: 96365; P9047

== ENCOUNTER 2019-01-13 11:26 | Outpatient (CLI) | payer OTHER, MEDICARE ==
[~2019-01-13] VITALS: Ht 188 cm; Wt 77.3 kg
[2019-01-13 11:43] VITALS: BP 112/62
[2019-01-13 12:45] VITALS: BP 101/57
[2019-01-13 13:30] VITALS: BP 111/63
== END 2019-01-13 13:30 | disposition home or self-care (01) ==
LOC: M INFU 11:26
PROVIDERS: ATTEND Internal Medicine Medical Oncology
DX: E85.9 Amyloidosis, unspecified (principal)
CPT/HCPCS: 96365; P9047

== ENCOUNTER 2019-01-16 10:15 | Outpatient (CLI) | payer OTHER, MEDICARE ==
[~2019-01-16] VITALS: Ht 188 cm; Wt 77.3 kg
[2019-01-16 10:40] VITALS: BP 101/51
[2019-01-16 12:30] VITALS: BP 108/55
== END 2019-01-16 12:30 | disposition home or self-care (01) ==
LOC: M INFU 10:15
PROVIDERS: ATTEND Internal Medicine Medical Oncology
DX: E85.9 Amyloidosis, unspecified (principal)
CPT/HCPCS: 96365; P9047

== ENCOUNTER 2019-01-20 10:13 | Outpatient (CLI) | payer OTHER, MEDICARE ==
[~2019-01-20] VITALS: Ht 182.9 cm; Wt 77.3 kg
[2019-01-20 10:20] VITALS: BP 120/59
[2019-01-28] MEDS ORDERED: NAPR-50 PO (00:17)
== END 2019-01-20 12:15 | disposition home or self-care (01) ==
LOC: M INFU 10:13
PROVIDERS: ATTEND Internal Medicine Medical Oncology
DX: E85.9 Amyloidosis, unspecified (principal)
CPT/HCPCS: 96365; P9047

== ENCOUNTER 2019-01-23 10:18 | Outpatient (CLI) | payer OTHER, MEDICARE ==
[~2019-01-23] VITALS: Ht 182.9 cm; Wt 77.3 kg
[2019-01-23 10:30] VITALS: BP 125/58
[2019-01-23 11:30] VITALS: BP 107/58
[2019-01-23 12:00] VITALS: BP 113/57
[2019-01-28] MEDS ORDERED: NAPR-50 PO (00:17)
== END 2019-01-23 12:30 | disposition home or self-care (01) ==
LOC: M INFU 10:18
PROVIDERS: ATTEND Internal Medicine Medical Oncology
DX: E85.9 Amyloidosis, unspecified (principal)
CPT/HCPCS: 96365; P9047

== ENCOUNTER 2019-01-27 10:53 | Outpatient (CLI) | payer OTHER, MEDICARE ==
[~2019-01-27] VITALS: Ht 182.9 cm; Wt 77.3 kg
[2019-01-27 11:00] VITALS: BP 113/60
[2019-01-27 13:17] VITALS: BP 110/57
[2019-01-28] MEDS ORDERED: NAPR-50 PO (00:17)
[2019-01-28] MEDS ORDERED: CYCL5TAB PO (00:17)
== END 2019-01-27 12:20 | disposition home or self-care (01) ==
LOC: M INFU 10:53
PROVIDERS: ATTEND Internal Medicine Medical Oncology
DX: E85.9 Amyloidosis, unspecified (principal)

== ENCOUNTER 2019-01-27 21:34 | Emergency (ER) | payer MEDICARE, OTHER ==
[~2019-01-27] VITALS: Ht 182.9 cm; Wt 86.4 kg
[~2019-01-27 21:34] MED LIST changes: -SODIUM CHLORIDE 0.9% INJ 10 ML SYR IV SCH
[2019-01-27] MEDS ORDERED: diazePAM 5 MG TAB PO ONE (22:30)
[2019-01-27] MEDS ORDERED: NAPROXEN 250 MG TAB PO ONE (22:30)
--- NOTE | 2019-01-27 23:57 | REPVR ---
EXAM: CT Head Without Contrast EXAM DATE/TIME: 01/27/2019 10:22 PM CLINICAL HISTORY: 78 years old, male; Injury or trauma; Fall; Additional info: Fall/pain TECHNIQUE: Imaging protocol: Axial computed tomography images of the head/brain without contrast. Radiation optimization: All CT scans at this facility use at least one of these dose optimization techniques: automated exposure control; mA and/or kV adjustment per patient size (includes targeted exams where dose is matched to clinical indication); or iterative reconstruction. COMPARISON: No relevant prior studies available. FINDINGS: Brain: There is generalized cortical atrophy. Low density is seen in the periventricular white matter extending into the farrell radiata and the centrum semiovale bilaterally. No hemorrhage Ventricles: Normal. No ventriculomegaly. Bones/joints: Unremarkable. No acute fracture. Sinuses: Visualized sinuses are unremarkable. No acute sinusitis. Mastoid air cells: Visualized mastoid air cells are unremarkable. No mastoid effusion. Soft tissues: Unremarkable. IMPRESSION: No acute findings 2. Chronic microvascular ischemic changes in deep white matter. 3. Generalized cortical atrophy Electronically signed by: Rose Arboleda On 01/27/2019 23:57:26 PM
--- NOTE | 2019-01-28 00:09 | REPVR ---
EXAM: CT Cervical Spine Without Contrast EXAM DATE/TIME: 01/27/2019 10:22 PM CLINICAL HISTORY: 78 years old, male; Injury or trauma; Fall; Initial encounter; Concussion /head injury; Additional info: Fall/pain TECHNIQUE: Imaging protocol: Axial computed tomography images of the cervical spine without intravenous contrast. Coronal and sagittal reformatted images were created and reviewed. Radiation optimization: All CT scans at this facility use at least one of these dose optimization techniques: automated exposure control; mA and/or kV adjustment per patient size (includes targeted exams where dose is matched to clinical indication); or iterative reconstruction. COMPARISON: No relevant prior studies available. FINDINGS: Vertebrae: There is a slight reversal of the normal cervical lordosis. C2-C3: Hypertrophic facet arthropathy on the right. Mild right foraminal stenosis. No disc herniation. No spinal stenosis. C3-C4: Hypertrophic facet arthropathy on the right. Circumferential annulus bulge. Moderate right foraminal stenosis. No central stenosis. No disc herniation. C4-C5: Hypertrophic facet arthropathy bilaterally. Circumferential annulus bulge. No stenosis. No disc herniation. C5-C6: Narrowed intervertebral disc space with endplate sclerosis and moderately advanced uncovertebral hypertrophy. Posterior disc osteophyte ridge with impression upon the ventral margin of the thecal sac and the spinal cord. Moderate to severe central stenosis. Moderate to severe bilateral foraminal stenosis. C6-C7: Mild calcification posterior longitudinal ligament. Circumferential annulus bulge. No stenosis. No disc herniation. C7-T1: No disc herniation. No spinal stenosis. No neural foraminal narrowing. Epidural space: Calcification and ossification dural or epidural calcification noted posteriorly at C6 noted within the ligamentum nuchae Soft tissues: Unremarkable. Lungs: Lung apices are normal. IMPRESSION: 1. No acute findings. 2. Degenerative disc disease and facet arthropathy. Moderate to severe central and foraminal stenosis at C5-6 Electronically signed by: Rose Arboleda On 01/28/2019 00:08:59 AM
[2019-01-28] MEDS ORDERED: NAPR-837 PO (00:17)
[2019-01-28] MEDS ORDERED: CYCL5TAB PO (00:17)
[2019-01-28 00:53] VITALS: BP 124/62
--- NOTE | 2019-01-29 13:01 | ED PDOC ---
Post-Departure Follow-Up dr trejo faxed formal report of ct c spine for fu Gala Hodgson MD Jan 29, 2019 13:01
== END 2019-01-28 00:56 | disposition home or self-care (01) ==
LOC: M ED 21:34
DX: S13.4XXA Sprain of ligaments of cervical spine, initial encounter (principal); W05.0XXA Fall from non-moving wheelchair, initial encounter; Y92.818 Other transport vehicle as the place of occurrence of the external cause; I11.9 Hypertensive heart disease without heart failure; E07.9 Disorder of thyroid, unspecified; N40.0 Benign prostatic hyperplasia without lower urinary tract symptoms; Z79.899 Other long term (current) drug therapy; Z79.82 Long term (current) use of aspirin; E85.9 Amyloidosis, unspecified
CPT/HCPCS: 70450; 72125; 96365; 99283; P9047

== ENCOUNTER 2019-01-30 10:19 | Outpatient (CLI) | payer OTHER, MEDICARE ==
[~2019-01-30] VITALS: Ht 182.9 cm; Wt 77.3 kg
[~2019-01-30 10:19] MED LIST changes: +CYCL5TAB PO; +NAPR-837 PO; +SODIUM CHLORIDE 0.9% INJ 10 ML SYR IV SCH
[2019-01-30 10:50] VITALS: BP 102/59
[2019-01-30 11:05] VITALS: BP 99/57
[2019-01-30 11:50] VITALS: BP 90/50
[2019-01-30 12:20] VITALS: BP 98/54
== END 2019-01-30 12:20 | disposition home or self-care (01) ==
LOC: M INFU 10:19
PROVIDERS: ATTEND Internal Medicine Medical Oncology
DX: E85.9 Amyloidosis, unspecified (principal)
CPT/HCPCS: 96365; P9047

== ENCOUNTER 2019-02-03 10:25 | Outpatient (CLI) | payer OTHER, MEDICARE ==
[~2019-02-03] VITALS: Ht 182.9 cm; Wt 77.3 kg
[2019-02-03 10:35] VITALS: BP 120/68
[2019-02-03 11:35] VITALS: BP 105/58
[2019-02-03 12:10] VITALS: BP 117/56
== END 2019-02-03 12:40 | disposition home or self-care (01) ==
LOC: M INFU 10:25
PROVIDERS: ATTEND Internal Medicine Medical Oncology
DX: E85.9 Amyloidosis, unspecified (principal)
CPT/HCPCS: 96365; P9047

== ENCOUNTER 2019-02-06 10:26 | Outpatient (CLI) | payer OTHER, MEDICARE ==
[~2019-02-06] VITALS: Ht 182.9 cm; Wt 77.3 kg
[2019-02-06 10:30] VITALS: BP 121/69
[2019-02-06 11:20] VITALS: BP 119/96
[2019-02-06 11:50] VITALS: BP 125/67
== END 2019-02-06 12:00 | disposition home or self-care (01) ==
LOC: M INFU 10:26
PROVIDERS: ATTEND Internal Medicine Medical Oncology
DX: E85.9 Amyloidosis, unspecified (principal)
CPT/HCPCS: 96365; P9047

== ENCOUNTER 2019-02-10 10:09 | Outpatient (CLI) | payer OTHER, MEDICARE ==
[~2019-02-10] VITALS: Ht 182.9 cm; Wt 77.3 kg
[2019-02-10 10:35] VITALS: BP 122/61
== END 2019-02-10 12:05 | disposition home or self-care (01) ==
LOC: M INFU 10:09
PROVIDERS: ATTEND Internal Medicine Medical Oncology
DX: E85.9 Amyloidosis, unspecified (principal)
CPT/HCPCS: 96365; P9047

== ENCOUNTER 2019-02-19 16:55 | Inpatient (IN) | payer OTHER, MEDICARE ==
[~2019-02-19] VITALS: Ht 182.9 cm; Wt 75.6 kg
[~2019-02-19 16:55] MED LIST changes: -SODIUM CHLORIDE 0.9% INJ 10 ML SYR IV SCH
[2019-02-19 18:29] LABS: BASO # 0.2 10^3/uL (0.0-0.2); BASO % 0.6 % (0.0-1.0); EOS # 0.3 10^3/uL (0.0-0.50); EOS % 1.2 % (0.0-3.0); HEMATOCRIT 30.3 % (42.0-52.0); HEMOGLOBIN 9.9 g/dl (13.5-17.5); LYMPH # 0.8 10^3/uL (1.5-4.5); LYMPH % 3.4 % (24.0-44.0); MEAN CORPUSCULAR HEMOGLOBIN 31.1 pg (27.0-33.0); MEAN CORPUSCULAR HGB CONC 32.7 g/dl (32.0-36.5); MEAN CORPUSCULAR VOLUME 95.3 fl (80.0-96.0); MONO # 1.5 10^3/uL (0.0-0.8); MONO % 6.1 % (0.0-5.0); NEUTROPHILS # 21.1 10^3/uL (1.8-7.7); NEUTROPHILS % 86.1 % (36.0-66.0); PLATELET COUNT, AUTOMATED 467 10^3/uL (150-450); RED BLOOD COUNT 3.18 10^6/uL (4.30-6.10); WHITE BLOOD COUNT 24.5 10^3/uL (4.0-10.0)
[2019-02-19] MEDS ORDERED: DEXA0.5E2 PO (18:44)
[2019-02-19] MEDS ORDERED: ACET1TAB55 PO (18:44)
[2019-02-19] MEDS ORDERED: BORT3.5I IV (18:44)
[2019-02-19] MEDS ORDERED: SENN1TAB36 PO (18:44)
[2019-02-19 18:59] LABS: ALBUMIN 1.6 GM/DL (3.2-5.2); ALT/SGPT 17 U/L (12-78); BILIRUBIN,DIRECT < 0.1 MG/DL (0.0-0.2); BILIRUBIN,TOTAL 0.4 MG/DL (0.2-1.0); BLOOD UREA NITROGEN 51 MG/DL (7-18); CALCIUM LEVEL 7.7 MG/DL (8.8-10.2); CARBON DIOXIDE LEVEL 17 MEQ/L (21-32); CHLORIDE LEVEL 110 MEQ/L (98-107); CPK CREATINE PHOSPHOKINASE 92 U/L (39-308); CREATININE FOR GFR 3.32 MG/DL (0.70-1.30); FREE T4 1.21 NG/DL (0.76-1.46); GLOMERULAR FILTRATION RATE 19.3 (>42); GLUCOSE, FASTING 108 MG/DL (70-100); LIPASE 105 U/L (73-393); MB/CK RELATIVE INDEX 11.63 (< OR =4); NT-PRO BNP 15675 PG/ML (<450); POTASSIUM SERUM 4.3 MEQ/L (3.5-5.1); SODIUM LEVEL 137 MEQ/L (136-145); TOTAL PROTEIN 4.8 GM/DL (6.4-8.2)
--- NOTE | 2019-02-19 20:11 | REPVR ---
EXAM: CT Chest Without Contrast EXAM DATE/TIME: 02/19/2019 7:26 PM CLINICAL HISTORY: 79 years old, male; Signs and symptoms; Cough; Additional info: Cough, recurrent pleural effusions TECHNIQUE: Imaging protocol: Axial computed tomography images of the chest without intravenous contrast. Coronal and sagittal reformatted images were created and reviewed. 3D rendering: MIP reconstructed images were created and reviewed. Radiation optimization: All CT scans at this facility use at least one of these dose optimization techniques: automated exposure control; mA and/or kV adjustment per patient size (includes targeted exams where dose is matched to clinical indication); or iterative reconstruction. COMPARISON: CR PORTABLE CHEST X-RAY 02/19/2019 5:21 PM FINDINGS: Lungs: Calcified granuloma right middle lobe. Bilateral geographic groundglass opacities in the mid and upper lung zones may represent atelectasis and/or mosaic perfusion. Pleural space: Moderate bilateral pleural effusions and compressive atelectasis at both lung bases. Heart: There is mild atherosclerotic calcification of the coronary arteries. Small pericardial effusion or pericardial thickening. Aorta: The aorta demonstrates mild atherosclerotic calcification. Lymph nodes: Small mediastinal lymph nodes likely postinflammatory. Mediport catheter tip in the superior vena cava. Bones/joints: The spine demonstrates mild degenerative changes. Soft tissues: Unremarkable. Adrenals: There is bilateral adrenal hyperplasia. IMPRESSION: 1. Moderate bilateral pleural effusions and compressive atelectasis at both lung bases. 2. Bilateral geographic groundglass opacities in the mid and upper lung zones may represent atelectasis and/or mosaic perfusion. 3. Small pericardial effusion or pericardial thickening. 4. There is bilateral adrenal hyperplasia. Electronically signed by: Alex Veliz On 02/19/2019 20:10:55 PM
--- NOTE | 2019-02-19 20:19 | REP ---
Portable chest, 05:23 p.m., single AP view, the the patient is upright: Comparison is 01/11/2011. There are bibasilar infiltrates as an interval change. There is a right IJ [id number] catheter as an interval change with the tip in the right atrium. Cardiac size is normal. The jitendra, mediastinum, skeletal structure cysts are unremarkable. Impression: Bibasilar infiltrates. Right IJ [id number]. Electronically Signed by Prince Sandoval MD 02/19/2019 08:10 P
[2019-02-19] MEDS ORDERED: SYNT100T PO (21:51)
[2019-02-19] MEDS ORDERED: VITA-172 PO (21:51)
[2019-02-19] MEDS ORDERED: MIRA3350 PO (21:52)
[2019-02-19] MEDS ORDERED: DOCU100C16 PO (21:52)
[2019-02-19] MEDS: ATORVASTATIN 20 MG TAB PO SCH (23:57)
[2019-02-19] MEDS: HEPARIN SOD (PORCINE) 5000 UNITS/ML VIAL SC SCH (23:59)
[2019-02-20] MEDS ORDERED: LEVOTHYROXINE 100MCG TABLET (0.1MG) PO SCH (06:00)
[2019-02-20 06:07] LABS: HEMATOCRIT 29.3 % (42.0-52.0); HEMOGLOBIN 9.5 g/dl (13.5-17.5); MEAN CORPUSCULAR HEMOGLOBIN 30.7 pg (27.0-33.0); MEAN CORPUSCULAR HGB CONC 32.4 g/dl (32.0-36.5); MEAN CORPUSCULAR VOLUME 94.8 fl (80.0-96.0); PLATELET COUNT, AUTOMATED 452 10^3/uL (150-450); RED BLOOD COUNT 3.09 10^6/uL (4.30-6.10); WHITE BLOOD COUNT 23.2 10^3/uL (4.0-10.0)
[2019-02-20 06:34] LABS: CALCIUM LEVEL 8.1 MG/DL (8.8-10.2); CREATININE FOR GFR 3.33 MG/DL (0.70-1.30); GLOMERULAR FILTRATION RATE 19.2 (>42); MAGNESIUM LEVEL 1.7 MG/DL (1.8-2.4); PERCENT SATURATION 28.5 % (19.7-50.0); POTASSIUM SERUM 4.2 MEQ/L (3.5-5.1)
--- NOTE | 2019-02-20 08:16 | HPE ---
DATE OF ADMISSION: 02/19/2019 PRIMARY CARE PHYSICIAN: Dr. Polo Krasu ONCOLOGIST: Dr. Alberto and Dr. Aleks Stone in [place] at [facility]. CHIEF COMPLAINT: Shortness of breath. HISTORY OF PRESENT ILLNESS (HPI): Mr. Tracey is a 79-year-old male with notable past medical history of primary amyloidosis of light chain who presents with worsening shortness of breath over the past 2-3 weeks. He has also noted increased dry cough and lower extremity edema and orthopnea and paroxysmal nocturnal dyspnea. He had initially presented to the [facility] and was found to have fluid in his lungs and thus urged to come into the emergency room (ER). He states he had a similar episode of this hypervolemic status that started around the end of 2016 where at that time he was treated by his amyloidosis specialist, Dr. Aleks Stone in [place] with intravenous (IV) diuretics and his fluid status was deemed secondary to his amyloidosis of the lungs. He is normally on spironolactone and torsemide at home which and his leak operator paraffin plant in the room confirmed that he is very compliant with. He also endorses decreased urine output where normally he excretes about 1.5 liters of urine a day and now the leak operator paraffin plant, Demi, has noted his output is down to 6-700 mL a day. Of note: His hemoglobin is also noted to have dropped from 13 to 9 in a two week time period. On admission his vitals are otherwise stable. However, imaging reveals bilateral pleural effusions and he is noted to have an elevated BNP of greater than 15,000 with 2-3 plus pitting edema. He will be admitted for given his hypervolemic status and continued dyspnea. PAST MEDICAL HISTORY: 1. Amyloidosis of the light chain. 2. Hyperlipidemia. 3. Vitamin D deficiency. 4. B12 deficiency. 5. Hypothyroidism. 6. Degenerative joint disease (DJD) with spondylosis. 7. Chronic kidney disease (CKD) Stage III-IV. PAST SURGICAL HISTORY: 1. Hernia repairs. 2. Knee replacements. ALLERGIES: NO KNOWN DRUG ALLERGIES. FAMILY HISTORY: Positive for multiple cancers including lung cancer, leukemia, EVENING [employer]CHOR and breast cancers. SOCIAL HISTORY: Never smoked, alcohol-quit 32 years ago. Admits to previous history of heavy drinking. Worked in [employer] which he quit after he was diagnosed with amyloidosis. HOME MEDICATIONS: - Tylenol as needed pain - aspirin 81 mg by mouth daily - atorvastatin 40 mg by mouth nightly - bortezomib 3.5 mg IV chemo every other Sunday - Vitamin D - Vitamin B12 - dexamethasone 0.5 mg by mouth every other Sunday on chemo days - Synthroid 100 mcg by mouth daily - Midodrine 10 mg by mouth three times a day - Eri LAX - spironolactone 50 mg by mouth daily - torsemide 20 mg by mouth twice a day REVIEW OF SYSTEMS: GENERAL: Denies any fevers, chills, weight loss. HEENT: Denies headache, blurry vision, eye pain. CARDIAC: Denies any chest pain or pressure. Admits to increased lower extremity swelling and orthopnea and paroxysmal nocturnal dyspnea. PULMONARY: Admits to a dry cough and increased shortness of breath. Denies any wheezing or any phlegm production. GASTROINTESTINAL (GI): Denies nausea, vomiting, abdominal pain. No changes in bowel habits. Admits to melena over the past two weeks. SKIN: Denies any new rashes or lesions. PHYSICAL EXAMINATION: VITAL SIGNS: Temperature 97.1, pulse 91, respirations 17, blood pressure (BP) 136/59, MAP 84. Pulse ox 97% on room air. GENERAL: Elderly gentleman resting comfortably in bed, no acute distress. Fully conversant. Awake, alert and oriented times three. He is able to speak in full sentences. HEENT: Normocephalic atraumatic. Extraocular muscles intact. Anicteric sclerae. NECK: Supple with elevated central venous pressure (CVP). CARDIAC: Regular rate and rhythm, normal S1, S2. 2 to 3+ bilateral pitting edema all the way up to the hips and sacrum. LUNGS: Bibasilar rales, equal chest rise bilaterally. Upper lung holbrook are clear. No accessory muscle use. ABDOMEN: Soft, nontender, nondistended. Positive bowel sounds. EXTREMITIES: 2+ radial pulses bilaterally. SKIN: No visible lesions or ulcerations. MUSCULOSKELETAL: Able to move all extremities independently against gravity. LABORATORY DATA: WBC 24.5, hemoglobin 9.9, hematocrit 30.3, platelets 467. Sodium 137, potassium 4.3, BUN 51, creatinine 2.32. Liver profile normal. ProBNP 50,675. Chest x-ray on admission is read as bibasilar infiltrates with a right internal jugular (IJ) Infusaport. Chest CT is read as moderate bilateral pleural effusions and compressive atelectasis in both lung bases, bilateral geographic ground-glass opacities mid and upper lung zones representing possible atelectasis or mosaic perfusion. Small pericardial effusion or pericardial thickening and bilateral adrenal hyperplasia. IMPRESSION AND PLAN: 1. Dyspnea in the setting of hypervolemic status and baseline amyloidosis of the kidneys and lungs. The patient endorses symptoms consistent with his hypervolemic status. He has no prior cardiac history or congestive heart failure (CHF) for which we will now obtain an echocardiogram. It is more likely that his hypervolemic status is from his baseline kidney disease as well as amyloidosis. He is normally on spironolactone and torsemide at home which he has been compliant with. However, he has noticed worsening edema and shortness of breath over the past 2-3 weeks and may require [facility] adjustments to his diuretic regimen. Per the patient's request he would like us to touch base with his amyloidosis specialist, Dr. Aleks Stone in [place] at [facility] and have provided us with his direct contact number of . We will plan to reach out to him in the morning. He also does normally follow with Dr. Alberto for his chemo every two weeks so we will consider getting her onboard as well if possible adjustments are needed. Currently we will diurese him with IV Lasix, insert Engle for strict in and out (I and O), elevated head of bed and weigh daily. Will place him on fluid restriction as well. Closely monitor his volume status. Nephro consult as been placed. We will reach out to them in the morning to discuss this patient. 2. Acute kidney injury (AMAN) in the setting of chronic kidney disease (CKD) III-IV. The patient's baseline creatinine appears to be around 2- 2.2; however, it is at 3.32 today and he endorses decreased urine output for the past 203 weeks. 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 As mentioned above, given his baseline amyloidosis of the kidneys, as well as CKD, will get nephrology onboard to follow along. Appreciate input. 3. Melena. The patient endorses two weeks of melanotic stools but denies any other gastrointestinal complaints. Of note, his hemoglobin is noted to have dropped from 13 to 9 within a two week time period. He states he has never had an upper or lower scope. His drop in hemoglobin may be hemodilutional given his hypervolemic status which also started around this time. Stool occult has been ordered. We will continue to monitor currently. The patient has been advised to followup as outpatient for possible colonoscopy and we will monitor his hemoglobin in patient. An anemia workup has also been ordered. 4. Leukocytosis which is chronic for him secondary to his baseline amyloidosis, chemo and chronic steroids. 5. Hyperlipidemia. Continue home aspirin and statin. 6. Vitamin D deficiency. Continue home vitamin D. 7. Vitamin B12 deficiency. Continue vitamin B12. 8. Hypothyroidism. Continue home Synthroid. He appears to have subclinical hypothyroidism currently but is otherwise stable. Will require outpatient followup. 9. Deep venous thrombosis (DVT)prophylaxis. Heparin subcutaneous. DISPOSITION: Will admit to the hospitalist service. Will require calling nephrology and his amyloidosis specialist in the morning. Plan to discharge home once he improves. My faculty preceptor for this patient encounter was physically present during the encounter and was fully available. All aspects of the patient interview, examination, medical decision making process, and medical care plan development were reviewed and approved by the faculty preceptor. The faculty preceptor is aware and concurs with the plan as stated in the body of this note and will attest to such by his/her cosignature. JEB
[2019-02-20] MEDS: FUROSEMIDE 40 MG/4 ML VIAL (J1940) IV SCH ×3 (08:32→16:37)
[2019-02-20] MEDS: HEPARIN SOD (PORCINE) 5000 UNITS/ML VIAL SC SCH ×2 (08:33→20:31)
[2019-02-20] MEDS: VITAMIN D 1,000 INTERNATIONAL UNITS TABLET PO SCH (08:34)
[2019-02-20] MEDS: MIRALAX *UNIT DOSE* 17GM PACKET PO SCH (08:34)
[2019-02-20] MEDS: ASPIRIN 81 MG ENTERIC TAB PO SCH (08:34)
[2019-02-20] MEDS: DOCUSATE SODIUM 100 MG CAP PO SCH (08:34)
[2019-02-20] MEDS: CYANOCOBALAMIN 500 MCG TAB PO SCH (08:34)
[2019-02-20] MEDS: SPIRONOLACTONE 25 MG TAB PO SCH ×2 (09:00→16:37)
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
[2019-02-20] MEDS: SODIUM BICARBONATE 325 MG TAB PO SCH ×3 (13:00→20:30)
[2019-02-20 15:05] VITALS: BP 119/56
--- NOTE | 2019-02-20 18:14 | IPNPDOC ---
Date Seen The patient was seen on 02/20/19. 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 Patient was seen and examined this morning downstairs ER. He states that his shortness of breath is exactly the same has not improved has not worsened. Will like to know what the next step is. When discussing about possib le hemodialysis the patient was very adamant that he would not do hemodialysis. He was under the impression that when he came here he would have a chest tube placed to help with his pleural effusion. He was not in a very pleasant mood this morning. He denies any chest pain, nausea, vomiting, diarrhea, constipation. He admits that he has lower extremity edema but has gotten worse in the last 2-3 weeks. He has been urinating with the full Lasix 40 mg IV but only has minimal urine output. nephrology will see the patient later today. All nursing events were reported. OBJECTIVE PHYSICAL EXAMINATION: VITAL SIGNS: Please see below. GENERAL: Elderly gentleman resting comfortably in bed, no acute distress. Fully conversant. Awake, alert and oriented times three. He is able to speak in full sentences without any accessory muscle use HEENT: Normocephalic atraumatic. Extraocular muscles intact. Anicteric sclerae. Supple with elevated central venous pressure (CVP). CARDIOVASCULAR: Regular rate and rhythm, normal S1, S2. Pericardial Rub. no audible murmurs noted. RESPIRATORY: Diminished breathe sounds bilaterally up to mid lung holbrook, dullness in percussion in the base bilaterally. clear to auscultate in the upper lung holbrook. ABDOMINAL: soft, positive bowl sounds in all four quadrants, no distended no fluid wave noted. , EXTREMITIES: anasarca, 2 to 3+ bilateral pitting edema up-to hips, 2+ pitting in the upper extremity bilateral up to forearms. LABORATORY DATA, IMAGING STUDIES, MICROBIOLOGY: Please see below. 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 PROBLEMS: Dyspnea 2/2 hypervolemic status and baseline amyloidosis of the kidneys and lungs. -negative for prior cardiac history or congestive heart failure (CHF) -ECHO pending -Amyloidosis specialist, Dr. Aleks Stone in [place] at [facility] - if we have any questions regarding the patient's disease -Dr. Alberto manages his chemotherapy, last one was 02/19/19. consulted and will see the patient while admitted. -IV Lasix -insert Engle for strict in and out (I and O), elevated head of bed and weigh daily. 1800ml fluid restriction -Closely monitor his volume status. -Albumin twice a week ordered, 2 units today. -Nephrology consult, apprecaite recommendations Acute kidney injury (AMAN) CKD III-IV. -baseline creatinine appears to be around 2- 2.2; 3.32 today -decreased urine output for the past 2-3 weeks. -baseline amyloidosis of the kidneys -nephrology consulted. Appreciate recommendation. Melena -two weeks of melanotic stools but denies any other gastrointestinal complaints -h/h dropped from 13 to 9 w/ two week time period. -hypervolemic hemodilutional? -Stool occult pending -will monitor -possible colonscopy outpatient upon discharge Chronic Leukocytosis possibly 2/2 baseline amyloidosis, chemo and chronic stero ids. -afebrile, does not appear infectious, stating appropriately on room air -non-productive cough -will monitor Hyperlipidemia -c/w aspirin and statin. Vitamin D deficiency. -c/w vitamin D. Vitamin B12 deficiency. Continue vitamin B12. Subclinical hypothyroidism -TSH >10 even though T4 is wNL -will need to increase Synthroid to lower TSH level. need follow up in 4-6 weeks outpatient to recheck levels. DVT ppx -Heparin 5,000 units q12h VS, I&O, 24H, Fishbone Vital Signs/I&O Vital Signs Date Time Temp Pulse Resp B/P (MAP) Pulse Ox O2 Delivery O2 Flow Rate FiO2 02/20/19 10:00 90 18 106/60 (75) 96 Room Air 02/20/19 05:45 97.0 I&O- Last 24 Hours up to 6 AM 02/20/19 06:00 Intake Total 120 ml Output Total 450 ml Balance -330 ml Laboratory Data 24H LABS Laboratory Tests 2 02/19/19 18:12: Immature Granulocyte % (Auto) 2.6, White Blood Count 24.5H, Red Blood Count 3.18L, Hemoglobin 9.9L, Hematocrit 30.3L, Mean Corpuscular Volume 95.3, Mean Corpuscular Hemoglobin 31.1, Mean Corpuscular Hemoglobin Concent 32.7, Red Cell Distribution Width 15.9H, Platelet Count 467H, Neutrophils (%) (Auto) 86.1H, Lymphocytes (%) (Auto) 3.4L, Monocytes (%) (Auto) 6.1H, Eosinophils (%) (Auto) 1.2, Basophils (%) (Auto) 0.6, Neutrophils # (Auto) 21.1H, Lymphocytes # (Auto) 0.8L, Monocytes # (Auto) 1.5H, Eosinophils # (Auto) 0.3, Basophils # (Auto) 0.2, Nucleated Red Blood Cells % (auto) 0.2H, Anion Gap 10, Glomerular Filtration Rate 19.3L, Calcium Level 7.7L, Aspartate Amino Transf (AST/SGOT) 15, Alanine Aminotransferase (ALT/SGPT) 17, Alkaline Phosphatase 87, Total Bilirubin 0.4, Direct Bilirubin < 0.1, Total Creatine Kinase 92, Creatine Kinase MB 11.0H, Creatine Kinase MB Relative Index 11.63H, Troponin I 0.10, VK-Cmh-M-Type Natriuretic Peptide 44625C, Total Protein 4.8L, Albumin 1.6L, Albumin/Globulin Ratio 0.50L, Lipase 105, Thyroid Stimulating Hormone (TSH) 10.600H, Free Thyroxine 1.21 02/20/19 05:32: Nucleated Red Blood Cells % (auto) 0.2H 02/20/19 06:00: Anion Gap 12, Glomerular Filtration Rate 19.2L, Calcium Level 8.1L, Blood Urea Nitrogen 47H, Creatinine 3.33H, Sodium Level 137, Potassium Level 4.2, Chloride Level 110H, Carbon Dioxide Level 15L, Magnesium Level 1.7L, Iron Level 41L, Total Iron Binding Capacity 144L, Transferrin % Saturation 28.5, Ferritin 339 CBC/BMP Laboratory Tests 02/19/19 18:12 Red Blood Count 3.18 L, Mean Corpuscular Volume 95.3, Mean Corpuscular Hemoglobin 31.1, Mean Corpuscular Hemoglobin Concent 32.7, Red Cell Distribution Width 15.9 H, Neutrophils (%) (Auto) 86.1 H, Lymphocytes (%) (Auto) 3.4 L, Monocytes (%) (Auto) 6.1 H, Eosinophils (%) (Auto) 1.2, Basophils (%) (Auto) 0.6, Neutrophils # (Auto) 21.1 H, Lymphocytes # (Auto) 0.8 L, Monocytes # (Auto) 1.5 H, Eosinophils # (Auto) 0.3, Basophils # (Auto) 0.2 02/20/19 05:32 Red Blood Count 3.09 L, Mean Corpuscular Volume 94.8, Mean Corpuscular Hemoglobin 30.7, Mean Corpuscular Hemoglobin Concent 32.4, Red Cell Distribution Width 15.6 H 02/20/19 06:00 Calcium Level 8.1 L GME ATTESTATION GME ATTESTATION My faculty preceptor for this patient encounter was physically present during the encounter and was fully available. All aspects of the patient interview, examination, medical decision making process, and medical care plan development were reviewed and approved by the faculty preceptor. The faculty preceptor is aware and concurs with the plan as stated in the body of this note and will attest to such by his/her cosignature. ATTENDING NOTE I saw and evaluated the patient. I agree with the findings and plan of care as documented in the resident's note KP ALCARAZ DO Feb 20, 2019 12:06 REJI LAM MD March 05, 2019 16:10
[2019-02-20 20:00] VITALS: BP 125/58
--- NOTE | 2019-02-20 20:00 | REP ---
Urinary tract sonography: History: Evaluate kidney size. Question chronic renal atrophy. History of amyloidosis. Findings: Incidental note is made of moderate-sized bilateral pleural effusions. No significant ascites is seen. Scanning at the level of the urinary bladder demonstrates that it is empty around a Engle balloon. Renal cortical echogenicity pattern is increased bilaterally consistent with chronic medical renal disease. No hydronephrosis is seen. No cyst or mass is observed. The right kidney measures 9.2 x 4.7 x 4.8 cm. Left renal dimensions are 10.0 x 5.0 x 5.4 cm. Impression: Increased renal cortical echogenicity pattern bilaterally. No hydronephrosis seen. Moderate-sized bilateral pleural effusions. Electronically Signed by Michael Morales MD 02/21/2019 07:34 A
[2019-02-20] MEDS: ATORVASTATIN 20 MG TAB PO SCH (20:30)
--- NOTE | 2019-02-20 21:40 | ECGEPIP ---
Stationary ECG Study [facility] - ED Test Date: 2019-02-19 Pat Name: TEMO MANSFIELD Department: Room: - Gender: M System Development Manager: LUKAS : 1940 Requested By: Gala Mix Order Number: [id number] Reading MD: Lian Leonard Measurements Intervals [place] Rate: 84 P: VT: 0 QRS: 26 QRSD: 86 T: 34 QT: 372 QTc: 441 Interpretive Statements ATRIAL FIBRILLATION MODERATE ST DEPRESSION NO PRIOR FOR COMPARISON Electronically Signed On 02-20-2019 21:40:09 EDT by Lian Leonard
[2019-02-20 22:55] VITALS: BP 115/59
[2019-02-20 23:10] VITALS: BP 123/69
[2019-02-20 23:55] VITALS: BP 120/65
[2019-02-21] VITALS (9 sets, daily range): BP systolic 105–131; BP diastolic 56–60
[2019-02-21] MEDS: FUROSEMIDE 40 MG/4 ML VIAL (J1940) IV SCH ×3 (00:38→17:58)
[2019-02-21] MEDS: LEVOTHYROXINE 112MCG TABLET (0.112MG) PO SCH ×2 (05:26→16:40)
[2019-02-21] MEDS: ACETAMINOPHEN TAB 650MG DOSE (2X325MG) PO PRN (05:37)
[2019-02-21 05:40] LABS: HEMATOCRIT 27.3 % (42.0-52.0); HEMOGLOBIN 9.1 g/dl (13.5-17.5); MEAN CORPUSCULAR HEMOGLOBIN 31.6 pg (27.0-33.0); MEAN CORPUSCULAR HGB CONC 33.3 g/dl (32.0-36.5); MEAN CORPUSCULAR VOLUME 94.8 fl (80.0-96.0); PLATELET COUNT, AUTOMATED 408 10^3/uL (150-450); RED BLOOD COUNT 2.88 10^6/uL (4.30-6.10); WHITE BLOOD COUNT 20.9 10^3/uL (4.0-10.0)
[2019-02-21 06:02] LABS: CALCIUM LEVEL 7.6 MG/DL (8.8-10.2); CREATININE FOR GFR 3.63 MG/DL (0.70-1.30); GLOMERULAR FILTRATION RATE 17.4 (>42); MAGNESIUM LEVEL 1.7 MG/DL (1.8-2.4); POTASSIUM SERUM 3.7 MEQ/L (3.5-5.1)
[2019-02-21] MEDS: DOCUSATE SODIUM 100 MG CAP PO SCH (08:49)
[2019-02-21] MEDS: SPIRONOLACTONE 25 MG TAB PO SCH ×2 (08:49→17:58)
[2019-02-21] MEDS: HEPARIN SOD (PORCINE) 5000 UNITS/ML VIAL SC SCH ×2 (08:49→21:10)
[2019-02-21] MEDS: ASPIRIN 81 MG ENTERIC TAB PO SCH (08:50)
[2019-02-21] MEDS: MIRALAX *UNIT DOSE* 17GM PACKET PO SCH (08:50)
[2019-02-21] MEDS: SODIUM BICARBONATE 325 MG TAB PO SCH ×4 (08:50→21:09)
[2019-02-21] MEDS: VITAMIN D 1,000 INTERNATIONAL UNITS TABLET PO SCH (08:50)
[2019-02-21] MEDS: CYANOCOBALAMIN 500 MCG TAB PO SCH (08:50)
[2019-02-21] MEDS: SODIUM CHLORIDE 0.9% INJ 10 ML SYR IV PRN ×2 (11:06→17:59)
--- NOTE | 2019-02-21 11:56 | IPNPDOC ---
Date Seen The patient was seen on 02/21/19. 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 And examined today. He had 1 albumin transfused last night will have another transfused morning. States that he was able to sleep last night for his cough was not as frequent. He also admits his shortness of breath is a l ittle better as well. He denies nausea vomiting constipation worsening shortness of breath. No overnight events reported. He did request that we call his amyloidosis specialist Dr. Stone, to see if he can give further information regarding his underlying disease. The patient has no other complaints at this time. OBJECTIVE PHYSICAL EXAMINATION: VITAL SIGNS: Please see below. GENERAL: Elderly gentleman resting comfortably in bed, no acute distress. Fully conversant. Awake, alert and oriented times three. He is able to speak in full sentences without any accessory muscle use HEENT: Normocephalic atraumatic. Extraocular muscles intact. Anicteric sclerae. Supple with elevated central venous pressure (CVP). CARDIOVASCULAR: Regular rate and rhythm, normal S1, S2. No pericardial rub appreciated today. no audible murmurs noted. RESPIRATORY: Diminished breathe sounds bilaterally up to mid lung holbrook, dullness in percussion in the base bilaterally. clear to auscultate in the upper lung hol[place]. ABDOMINAL: soft, positive bowl sounds in all four quadrants, no distended no fluid wave noted. , EXTREMITIES: anasarca, 2 to 3+ bilateral pitting edema up-to hips, upper extremity swelling improved. LABORATORY DATA, IMAGING STUDIES, MICROBIOLOGY: Please see below. 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 PROBLEMS: Dyspnea 2/2 hypervolemic status and baseline amyloidosis of the kidneys and lungs. -negative for prior cardiac history or congestive heart failure (CHF) -ECHO pending -Amyloidosis specialist, Dr. Aleks Stone in [place] at [facility] - if we have any questions regarding the patient's disease -Dr. Alberot manages his chemotherapy, last one was 02/19/19. consulted and will see the patient while admitted. -IV Lasix per nephrology -Engle for strict in and out (I and O), elevated head of bed and weigh daily. 1800ml fluid restriction -Closely monitor his volume status. -2 units of albumin outpatient twice a week, s/p 2units during this admission -Nephrology consult, apprecaite recommendations Acute kidney injury (AMAN) CKD III-IV. -baseline creatinine appears to be around 2- 2.2; -decreased urine output for the past 2-3 weeks. -baseline amyloidosis of the kidneys -nephrology consulted -Renal ultrasound: Increased renal cortical echogenicity pattern bilaterally, which is consistent with amyloidosis -Fully discussed with patient if he is more open to hemodialysis will discuss case with nephrology. Melena -two weeks of melanotic stools but denies any other gastrointestinal complaints -h/h dropped from 13 to 9 w/ two week time period. --hypervolemic hemodilutional? -Stool occult pending -will monitor -possible colonscopy outpatient upon discharge Chronic Leukocytosis possibly 2/2 baseline amyloidosis, chemo and chronic steroids. -afebrile, does not appear infectious, stating appropriately on room air -non-productive cough -will monitor Hyperlipidemia -c/w aspirin and statin. Vitamin D deficiency. -c/w vitamin D. Vitamin B12 deficiency. Continue vitamin B12. Subclinical hypothyroidism -TSH >10 even though T4 is wNL -will need to increase Synthroid to 112mg to lower TSH level -need follow up in 4-6 weeks outpatient to recheck levels. DVT ppx -Heparin 5,000 units q12h VS, I&O, 24H, Audra Vital Signs/I&O Vital Signs Date Time Temp Pulse Resp B/P (MAP) Pulse Ox O2 Delivery O2 Flow Rate FiO2 02/21/19 08:06 97.1 82 20 121/60 (80) 95 02/20/19 14:12 Room Air I&O- Last 24 Hours up to 6 AM 02/21/19 06:00 Intake Total 540 ml Output Total 2500 ml Balance -1960 ml Laboratory Data 24H LABS Laboratory Tests 2 02/21/19 05:24: Nucleated Red Blood Cells % (auto) 0.1H 02/21/19 05:25: Anion Gap 12, Glomerular Filtration Rate 17.4L, Blood Urea Nitrogen 49H, Creatinine 3.63H, Sodium Level 138, Potassium Level 3.7, Chloride Level 109H, Carbon Dioxide Level 17L, Calcium Level 7.6L, Magnesium Level 1.7L CBC/BMP Laboratory Tests 02/21/19 05:24 Red Blood Count 2.88 L, Mean Corpuscular Volume 94.8, Mean Corpuscular Hemoglobin 31.6, Mean Corpuscular Hemoglobin Concent 33.3, Red Cell Distribution Width 16.0 H 02/21/19 05:25 Calcium Level 7.6 L GME ATTESTATION GME ATTESTATION My faculty preceptor for this patient encounter was physically present during the encounter and was fully available. All aspects of the patient interview, examination, medical decision making process, and medical care plan development were reviewed and approved by the faculty preceptor. The faculty preceptor is aware and concurs with the plan as stated in the body of this note and will attest to such by his/her cosignature. ATTENDING NOTE I saw and evaluated the patient. I agree with the findings and plan of care as documented in the resident's note PK ALCARAZ DO Feb 21, 2019 11:56 REJI LAM MD March 05, 2019 16:11
[2019-02-21] MEDS ORDERED: MAG SULF 1GM/100ML (MAG RUN) 1 GM in APPROPRIATE DILUENT 1 EA IV ONE (12:00)
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
[2019-02-21] MEDS: ATORVASTATIN 20 MG TAB PO SCH (21:10)
[2019-02-22] MEDS: FUROSEMIDE 40 MG/4 ML VIAL (J1940) IV SCH ×3 (00:24→16:49)
[2019-02-22 04:00] VITALS: BP 129/60
[2019-02-22] MEDS: SODIUM CHLORIDE 0.9% INJ 10 ML SYR IV PRN ×2 (05:54→17:56)
[2019-02-22 06:21] LABS: HEMATOCRIT 27.7 % (42.0-52.0); HEMOGLOBIN 9.2 g/dl (13.5-17.5); MEAN CORPUSCULAR HEMOGLOBIN 31.2 pg (27.0-33.0); MEAN CORPUSCULAR HGB CONC 33.2 g/dl (32.0-36.5); MEAN CORPUSCULAR VOLUME 93.9 fl (80.0-96.0); PLATELET COUNT, AUTOMATED 413 10^3/uL (150-450); RED BLOOD COUNT 2.95 10^6/uL (4.30-6.10); WHITE BLOOD COUNT 19.9 10^3/uL (4.0-10.0)
[2019-02-22 06:40] LABS: CALCIUM LEVEL 7.6 MG/DL (8.8-10.2); CREATININE FOR GFR 3.48 MG/DL (0.70-1.30); GLOMERULAR FILTRATION RATE 18.2 (>42); MAGNESIUM LEVEL 1.9 MG/DL (1.8-2.4); POTASSIUM SERUM 3.4 MEQ/L (3.5-5.1)
[2019-02-22] MEDS ORDERED: POTASSIUM CHLORIDE 10 MEQ SR TABLET PO ONE (07:00)
--- NOTE | 2019-02-22 07:09 | ECHO ---
DATE OF PROCEDURE: 02/10/2019 DATE OF : 1940 AGE: 79 REFERRING PROVIDER: Dr. Kalia Mitchell PATIENT LOCATION: Room 3212 REASON FOR THE ECHOCARDIOGRAM: Shortness of breath. 2D MEASUREMENTS: IVS: 1.3 cm LV: 5.6 cm LVPW: 0.9 cm LA: 3.6 cm Aorta: 3.5 cm IVC: 1.9 cm DOPPLER MEASUREMENTS: Peak velocity across the aortic valve: 1.3 m/s Peak velocity across the LVOT: 0.6 m/s Mitral E: 0.93 2D COMMENTS: 1. Mildly increased left ventricular wall thickness with normal left ventricular size and normal global left ventricular systolic function. The estimated left ventricular systolic ejection fraction is 60-65%. 2. Subjectively, the left atrium appeared to be mildly enlarged. Normal right atrium and right ventricle. 3. The atrial septum appeared to be normal without evidence of defect or shunt. 4. Normal aortic root. 5. No pericardial effusion seen. Left pleural effusion was noted. 6. Mildly calcified aortic valve with normal leaflet excursion. Normal mitral valve, tricuspid valve. The pulmonic valve and proximal pulmonary artery branches were not well visualized. 7. The inferior vena cava was normal in size, central venous pressure is most likely normal. DOPPLER: It detects mild mitral regurgitation. Assessment of the left ventricular diastolic function was limited in view of the underlying cardiac arrhythmias. IMPRESSION: 1. Normal global left ventricular systolic function with probably mild concentric left ventricular hypertrophy. Assessment of the left ventricular diastolic function was limited in view of the underlying atrial fibrillation. 2. Aortic valve sclerosis without stenosis or aortic regurgitation. 3. Mild mitral regurgitation. Subjectively, the left atrium appeared to be mildly enlarged. 4. A left pleural effusion was noted. No pericardial effusion. MTDD
[2019-02-22 08:00] VITALS: BP 104/57
[2019-02-22] MEDS: SODIUM BICARBONATE 325 MG TAB PO SCH ×4 (09:28→21:22)
[2019-02-22] MEDS: VITAMIN D 1,000 INTERNATIONAL UNITS TABLET PO SCH (09:28)
[2019-02-22] MEDS: DOCUSATE SODIUM 100 MG CAP PO SCH (09:29)
[2019-02-22] MEDS: SODIUM CHLORIDE 0.9% INJ 10 ML SYR IV SCH (09:29)
[2019-02-22] MEDS: ASPIRIN 81 MG ENTERIC TAB PO SCH (09:29)
[2019-02-22] MEDS: CYANOCOBALAMIN 500 MCG TAB PO SCH (09:29)
[2019-02-22] MEDS: SPIRONOLACTONE 25 MG TAB PO SCH ×2 (09:29→16:49)
[2019-02-22] MEDS: HEPARIN SOD (PORCINE) 5000 UNITS/ML VIAL SC SCH ×2 (09:30→21:23)
[2019-02-22] MEDS: MIRALAX *UNIT DOSE* 17GM PACKET PO SCH (09:30)
[2019-02-22 10:05] LABS: APPEARANCE, URINE CLEAR (CLEAR); BACTERIA, URINE AUTO 1+ (NEGATIVE); BILIRUBIN, URINE AUTO NEGATIVE (NEGATIVE); BLOOD, URINE BLOOD 1+ (NEGATIVE); COLOR, URINE STRAW (YELLOW); GLUCOSE, URINE (UA) AUTO 2+ mg/dL (NEGATIVE); KETONE, URINE AUTO NEGATIVE (NEGATIVE); LEUKOCYTE ESTERASE, URINE AUTO NEGATIVE (NEGATIVE); MUCUS, URINE SMALL (NEGATIVE); NITRITE, URINE AUTO NEGATIVE (NEGATIVE); PROTEIN, URINE AUTO 3+ mg/dL (NEGATIVE); RBC, URINE AUTO 19 /HPF (0-3); SQUAMOUS EPITHELIAL CELL UR AU 0 /HPF (0-6); UROBILINOGEN, URINE AUTO 0.2 mg/dL (0.0-2.0); WBC, URINE AUTO 6 /HPF (0-3)
[2019-02-22 10:27] LABS: TOTAL PROTEIN,RANDOM URINE 696.3 MG/DL (0.0-12.0)
[2019-02-22 12:00] VITALS: BP 100/55
--- NOTE | 2019-02-22 12:07 | IPNPDOC ---
Date Seen The patient was seen on 02/22/19. 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 Patient was seen and examined this morning. States that her shortness of breath is better and his cough as well. He states he was able to sleep last night even after continuos prodding. He got his second albumin infusion yesterday. His echocardiogram returned which showed a underlying afibrillation. Discussed with patient about risk and benefits of anticoagulation and he refused. He understands that he has a risk of strokes because of his underlying atrial fibrillation still does not want it. Is currently on 81 mg of aspirin he is willing to continue with this medication only as of now. Explained to patient that is likely exacerbation of his congestive heart failure. He denies any complaints at this time. Will like to get some rest. OBJECTIVE PHYSICAL EXAMINATION: VITAL SIGNS: Please see below. GENERAL: Elderly gentleman resting comfortably in bed, no acute distress. Fully conversant. Awake, alert and oriented times three. He is able to speak in full sentences without any accessory muscle use HEENT: Normocephalic atraumatic. Extraocular muscles intact. Anicteric sclerae. Supple with elevated central venous pressure (CVP). CARDIOVASCULAR: Irregular rhythm and rate controlled, normal S1, S2. No pericardial rub appreciated today. no audible murmurs noted. Distant heart sounds RESPIRATORY: Diminished breathe sounds bilaterally up to mid lung hol[place], dullness in percussion in the base bilaterally. clear to auscultate in the upper lung holbrook. ABDOMINAL: soft, positive bowl sounds in all four quadrants, no distended no fluid wave noted. , EXTREMITIES: anasarca, 2 to 3+ bilateral pitting edema up-to hips, upper extremity swelling improved. LABORATORY DATA, IMAGING STUDIES, MICROBIOLOGY: Please see below. Echocardiogram: 02/10/2019 Dr. Iyer IMPRESSION: 1. Normal global left ventricular systolic function with probably mild concentric left ventricular hypertrophy. Assessment of the left ventricular diastolic function was limited in view of the underlying atrial fibrillation. 2. Aortic valve sclerosis without stenosis or aortic regurgitation. 3. Mild mitral regurgitation. Subjectively, the left atrium appeared to be mildly enlarged. 4. A left pleural effusion was noted. No pericardial effusion. 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 PROBLEMS: Dyspnea likely secondary congestive heart failure secondary to atrial fibrillation versus hypervolemic status 2/2 amyloidosis of the kidneys and lungs. -negative for prior cardiac history or congestive heart failure (CHF) -ECHO above -Amyloidosis specialist, Dr. Aleks Stone in [place] at [facility] - if we have any questions regarding the patient's disease -Dr. Alberto manages his chemotherapy, last one was 02/19/19. consulted and will see the patient while admitted. -c/w IV Lasix per nephrology -[place] for strict in and out (I and O), elevated head of bed and weigh daily. 1800ml fluid restriction -Closely monitor his volume status. -2 units of albumin outpatient twice a week, s/p 2units during this admission -Nephrology consult, apprecaite recommendations New onset Artial fibrillation -denies hx of a. fib -Placed on telemetry -VICKIE-VASC score: 5 -Discussed risk and benefits of anticoagulation. He refuses anticoagulation even though he understands the risk is having a stroke without it is high due to his underlying A. fib. -He is currently at home aspirin 81 mg daily, is agreeable to continue this but no additional medications. -We'll continue to monitor on telemetry to make sure that he is rate controlled Acute kidney injury (AMAN) CKD III-IV -baseline creatinine appears to be around 2- 2.2; -baseline amyloidosis of the kidneys -nephrology consulted -Renal ultrasound: Increased renal cortical echogenicity pattern bilaterally, which is consistent with amyloidosis -Fully discussed with patient if he is more open to hemodialysis will discuss case with nephrology. Melena -two weeks of melanotic stools but denies any other gastrointestinal complaints -No bowel movements since admission -we will continue to monitor -possible colonscopy outpatient upon discharge Chronic Leukocytosis possibly 2/2 baseline amyloidosis, chemo and chronic steroids. -afebrile, does not appear infectious, stating appropriately on room air -non-productive cough -will monitor Hyperlipidemia -c/w aspirin and statin. Vitamin D deficiency. -c/w vitamin D. Vitamin B12 deficiency. Continue vitamin B12. Subclinical hypothyroidism -TSH >10 even though T4 is wNL -continue with increased dose of Synthroid 112mg -need follow up in 4-6 weeks outpatient to recheck levels. DVT ppx -Heparin 5,000 units q12h VS, I&O, 24H, Fishbone Vital Signs/I&O Vital Signs Date Time Temp Pulse Resp B/P (MAP) Pulse Ox O2 Delivery O2 Flow Rate FiO2 02/22/19 04:00 97.9 78 18 129/60 (83) 93 02/20/19 14:12 Room Air I&O- Last 24 Hours up to 6 AM 02/22/19 06:00 Intake Total 1510 ml Output Total 2400 ml Balance -890 ml Laboratory Data 24H LABS Laboratory Tests 2 02/22/19 05:57: Nucleated Red Blood Cells % (auto) 0.2H, Anion Gap 10, Glomerular Filtration Rate 18.2L, Blood Urea Nitrogen 45H, Creatinine 3.48H, Sodium Level 135L, Potassium Level 3.4L, Chloride Level 106, Carbon Dioxide Level 19L, Calcium Level 7.6L, Magnesium Level 1.9 CBC/BMP Laboratory Tests 02/22/19 05:57 Red Blood Count 2.95 L, Mean Corpuscular Volume 93.9, Mean Corpuscular Hemoglobin 31.2, Mean Corpuscular Hemoglobin Concent 33.2, Red Cell Distribution Width 15.9 H, Calcium Level 7.6 L GME ATTESTATION GME ATTESTATION My faculty preceptor for this patient encounter was physically present during the encounter and was fully available. All aspects of the patient interview, examination, medical decision making process, and medical care plan development were reviewed and approved by the faculty preceptor. The faculty preceptor is aware and concurs with the plan as stated in the body of this note and will attest to such by his/her cosignature. ATTENDING NOTE I saw and evaluated the patient. I agree with the findings and plan of care as documented in the resident's note KP ALCARAZ DO Feb 22, 2019 12:07 REJI LAM MD March 05, 2019 16:13
--- NOTE | 2019-02-22 13:07 | IPN ---
DATE OF SERVICE: 02/22/2019 Mr. Tracey is seen this morning on his bedside. He is taking his morning pills and having difficulty with swallowing. He is being diuresed due to generalized edema, bilateral pleural effusions and congestive heart failure. He had an echocardiogram which has already resulted and it showed normal systolic function. To my surprise, central venous pressure was not reported elevated. In the meantime, the patient is responding to diuretics with good urine output. He also has acute on chronic renal failure without any uremic symptoms. PHYSICAL EXAMINATION: Temperature 97.2 degrees Fahrenheit, heart rate 82 per minute and respiratory rate 20 per minute. Blood pressure 104/57 mmHg and oxygen saturation 95%. His head is atraumatic. Neck is supple and JVD is moderately elevated. Heart sounds are irregular in rhythm. Lungs with diminished breath sounds at dependent parts. Abdomen: Soft and bowel sounds present. Extremities: With 3+ edema and no cyanosis or clubbing. Neurologically he is awake, alert and oriented times three. Intake and output records from yesterday show total intake 1460 and output 2400. Today's labs show WBC count 19.9, hemoglobin 9.2 and hematocrit 27.7. Sodium 135, potassium 3.4, CO2 19, BUN 45 and creatinine 3.48. Calcium 7.6 and magnesium 1.9. PROBLEMS: 1. Acute on chronic congestive heart failure. His systolic function is reported normal. He is likely to have diastolic dysfunction. There was no significant evidence for amyloidosis in the heart. In any event, he is responding to diuretics and will continue with intravenous Lasix and oral spironolactone. I am concerned about anasarca possibly related to low serum albumin. His central venous pressure was reported not elevated. We may have to slow down on the diuretics depending upon his kidney function. 2. Acute renal failure superimposed on chronic kidney disease. The patient has known history of amyloidosis by kidney biopsy. He is also likely to have worsening kidney function related to congestive heart failure. At this point, he is responding to diuretics and kidney function is slightly improved compared with yesterday. We will continue to monitor his renal profile on daily basis. 3. Hypokalemia related to diuretic use and he is receiving potassium supplement 40 mEq this morning. I will also add oral potassium chloride 10 mEq three times a day. He is also receiving spironolactone 25 mg twice daily which will be continued. 4. Proteinuria. The patient has history of proteinuria possibly related to amyloidosis. I am concerned about possibility of worsening nephrotic syndrome and we are going to check a 24-hour urine for total protein. He is not a suitable candidate for LAVON or angiotensin receptor tiff. 5. Anemia. No significant change in anemia over last 24 hours. Will continue to monitor closely without any intervention.
[2019-02-22 16:00] VITALS: BP 118/57
[2019-02-22] MEDS: POTASSIUM CHLORIDE 10 MEQ SR TABLET PO SCH ×2 (16:50→21:23)
[2019-02-22 20:00] VITALS: BP 120/63
[2019-02-22] MEDS: ATORVASTATIN 20 MG TAB PO SCH (21:22)
[2019-02-22] MEDS: BISACODYL 10 MG SUPP PR PRN ×2 (21:23→22:38)
[2019-02-22 23:59] VITALS: BP 126/60
[2019-02-23] MEDS: FUROSEMIDE 40 MG/4 ML VIAL (J1940) IV SCH ×3 (00:47→16:18)
[2019-02-23 04:00] VITALS: BP 124/70
[2019-02-23] MEDS: LEVOTHYROXINE 112MCG TABLET (0.112MG) PO SCH (05:05)
[2019-02-23] MEDS: SODIUM CHLORIDE 0.9% INJ 10 ML SYR IV PRN ×2 (05:05→16:18)
[2019-02-23 05:37] LABS: HEMATOCRIT 29.2 % (42.0-52.0); HEMOGLOBIN 9.6 g/dl (13.5-17.5); MEAN CORPUSCULAR HGB CONC 32.9 g/dl (32.0-36.5); MEAN CORPUSCULAR VOLUME 94.2 fl (80.0-96.0); PLATELET COUNT, AUTOMATED 421 10^3/uL (150-450); WHITE BLOOD COUNT 20.9 10^3/uL (4.0-10.0)
[2019-02-23 05:47] LABS: BLOOD UREA NITROGEN 46 MG/DL (7-18); CALCIUM LEVEL 7.4 MG/DL (8.8-10.2); CARBON DIOXIDE LEVEL 20 MEQ/L (21-32); CHLORIDE LEVEL 106 MEQ/L (98-107); CREATININE FOR GFR 3.64 MG/DL (0.70-1.30); GLOMERULAR FILTRATION RATE 17.3 (>42); GLUCOSE, FASTING 98 MG/DL (70-100); MAGNESIUM LEVEL 1.8 MG/DL (1.8-2.4); POTASSIUM SERUM 3.9 MEQ/L (3.5-5.1); SODIUM LEVEL 137 MEQ/L (136-145)
[2019-02-23 08:00] VITALS: BP 117/60
[2019-02-23] MEDS: MIRALAX *UNIT DOSE* 17GM PACKET PO SCH ×2 (09:23→14:22)
[2019-02-23] MEDS: DOCUSATE SODIUM 100 MG CAP PO SCH (09:24)
[2019-02-23] MEDS: SODIUM BICARBONATE 325 MG TAB PO SCH ×4 (09:24→20:39)
[2019-02-23] MEDS: HEPARIN SOD (PORCINE) 5000 UNITS/ML VIAL SC SCH ×2 (09:24→20:39)
[2019-02-23] MEDS: POTASSIUM CHLORIDE 10 MEQ SR TABLET PO SCH ×3 (09:24→20:39)
[2019-02-23] MEDS: VITAMIN D 1,000 INTERNATIONAL UNITS TABLET PO SCH (09:25)
[2019-02-23] MEDS: ASPIRIN 81 MG ENTERIC TAB PO SCH (09:25)
[2019-02-23] MEDS: SPIRONOLACTONE 25 MG TAB PO SCH ×2 (09:25→16:19)
[2019-02-23] MEDS: CYANOCOBALAMIN 500 MCG TAB PO SCH (09:25)
[2019-02-23] MEDS: SODIUM CHLORIDE 0.9% INJ 10 ML SYR IV SCH (09:25)
[2019-02-23 10:43] LABS: TOTAL VOLUME, URINE 2650 ML
[2019-02-23 10:44] LABS: TOTAL PROTEIN 24 HOUR URINE 20805.1 MG/24HR (50-150); URINE TOTAL PROTEIN 785.1 MG/DL (0-12)
[2019-02-23 11:05] LABS: URINE TOTAL PROTEIN 785.1 MG/DL (0-12)
[2019-02-23 11:06] LABS: TOTAL PROTEIN,RANDOM URINE 785.1 MG/DL (0.0-12.0)
[2019-02-23 11:12] LABS: ALBUMIN 1.5 GM/DL (3.2-5.2); ALT/SGPT 15 U/L (12-78); BILIRUBIN,DIRECT < 0.1 MG/DL (0.0-0.2); BILIRUBIN,TOTAL 0.3 MG/DL (0.2-1.0); TOTAL PROTEIN 4.4 GM/DL (6.4-8.2)
[2019-02-23 12:00] VITALS: BP 119/57
--- NOTE | 2019-02-23 13:01 | IPNPDOC ---
Date Seen The patient was seen on 02/23/19. Progress Note SUBJECTIVE: Tells me that he continues to feel better he has no complaint of shortness of breath at this time he is not in any pain or discomfort OBJECTIVE PHYSICAL EXAMINATION: VITAL SIGNS: Please see below. GENERAL: Elderly gentleman lying flat in bed, no acute distress. Fully conversant. Awake, alert and oriented times three. HEENT: Normocephalic atraumatic. Extraocular muscles intact. Anicteric sclerae. Cranial nerves grossly intact CARDIOVASCULAR: Irregular rhythm not tachycardic, normal S1, S2. RESPIRATORY: Diminished breath sounds bibasilarly otherwise fairly good air movement bilaterally ABDOMINAL: soft, positive bowl sounds EXTREMITIES: 2+ edema bilaterally improved from previous days exam LABORATORY DATA, IMAGING STUDIES, MICROBIOLOGY: Please see below. Echocardiogram:02/10/2019 Dr. Iyer IMPRESSION: 1. Normal global left ventricular systolic function with probably mild concentric left ventricular hypertrophy. Assessment of the left ventricular diastolic function was limited in view of the underlying atrial fibrillation. 2. Aortic valve sclerosis without stenosis or aortic regurgitation. 3. Mild mitral regurgitation. Subjectively, the left atrium appeared to be mildly enlarged. 4. A left pleural effusion was noted. No pericardial effusion. DVT prophylaxis ordered?: Heparin ASSESSMENT AND PLAN: This is a 79-year-old male with amyloidosis who presented for worsening shortness found to be in anasarca and acute on chronic kidney failure 1. Dyspnea: Decompensated diastolic congestive heart failure likely secondary to Chronic Kidney Injury Secondary to New Onset Atrial Fibrillation, we will continue with aggressive diuresis his Lyme status does appear to be improving nephrology's help is greatly appreciated. There is also some concern it may been related to low albumin 20 failure protein is being collected he has received his regular albumin transfusions while hospitalized will continue to do so on his regular outpatient schedule. Continue with I's and O's daily weights and fluid restriction. 2. New onset Artial fibrillation: He is not requiring any rate control agents his chads score is 5 she is being monitored telemetry he has not had a rapid ventricular response. Risk and benefits regarding anticoagulation were discussed the patient was a good understanding of her conversations all questions were answered to his satisfaction at this time is declining anticoagulation therapy potential risks of stroke process and . 3. Acute on chronic kidney injury (AMAN) CKD III-IV Baseline creatinine appears to be around 2- 2.2; baseline amyloidosis of the kidneys. Nephrology was greatly appreciated. Renal function function is holding stable however should his disease progress he has clearly stated to be on numerous occasions he is not opened and hemodialysis no indication for this at this time 4. Positive occult stool for blood: Hemoglobin stable recommended outpatient follow-up and colonoscopy for routine screening 5. Chronic Leukocytosis possibly 2/2 chronic steroids. No signs of sepsis continue outpatient follow-up 6. Hyperlipidemia:c/w aspirin and statin. 7. Vitamin D deficiency:c/w vitamin D. 8. Vitamin B12 deficiency: Continue vitamin B12. 9. Subclinical hypothyroidism :TSH >10 even though T4 is wNL consider rechecking the outpatient setting after the acute medical illnesses improved 10. Hypokalemia: Supplementation once again nephrology help is greatly appreciated the patient is also on spironolactone VS, I&O, 24H, Fishbone Vital Signs/I&O Vital Signs Date Time Temp Pulse Resp B/P (MAP) Pulse Ox O2 Delivery O2 Flow Rate FiO2 02/23/19 08:00 97.6 99 22 117/60 (79) 95 02/20/19 14:12 Room Air I&O- Last 24 Hours up to 6 AM 02/23/19 06:00 Intake Total 1435 ml Output Total 3500 ml Balance -2065 ml Laboratory Data 24H LABS Laboratory Tests 2 02/23/19 05:10: Nucleated Red Blood Cells % (auto) 0.1H, Anion Gap 11, Glomerular Filtration Ra te 17.3L, Calcium Level 7.4L, Magnesium Level 1.8, Aspartate Amino Transf (AST/SGOT) 17, Alanine Aminotransferase (ALT/SGPT) 15, Alkaline Phosphatase 93, Total Bilirubin 0.3, Direct Bilirubin < 0.1, Total Protein 4.4L, Albumin 1.5L, Albumin/Globulin Ratio 0.52L 02/23/19 09:48: Urine Random Total Protein 785.1H, Urine Total Volume 2650, Urine Total Protein mg/dL 785.1H, Urine Total Protein 24 Hour 22753.1H, Urine Total Protein 785.1H CBC/BMP Laboratory Tests 02/23/19 05:10 Red Blood Count 3.10 L, Mean Corpuscular Volume 94.2, Mean Corpuscular Hemoglobi n 31.0, Mean Corpuscular Hemoglobin Concent 32.9, Red Cell Distribution Width 16.3 H, Calcium Level 7.4 L Microbiology Microbiology 02/22/19 Stool Occult Blood (SAEID) - Final, Complete REJI LAM MD Feb 23, 2019 13:01
[2019-02-23] MEDS ORDERED: MAG SULF 1GM/100ML (MAG RUN) 1 GM in APPROPRIATE DILUENT 1 EA IV ONE (13:15)
[2019-02-23 16:06] VITALS: BP 108/60
[2019-02-23 20:00] VITALS: BP 116/66
[2019-02-23] MEDS: ATORVASTATIN 20 MG TAB PO SCH (20:38)
[2019-02-23 23:59] VITALS: BP 119/62
[2019-02-24 04:00] VITALS: BP 102/60
[2019-02-24] MEDS: LEVOTHYROXINE 112MCG TABLET (0.112MG) PO SCH (06:02)
[2019-02-24 06:05] LABS: HEMATOCRIT 30.7 % (42.0-52.0); HEMOGLOBIN 10.3 g/dl (13.5-17.5); MEAN CORPUSCULAR HEMOGLOBIN 31.7 pg (27.0-33.0); MEAN CORPUSCULAR HGB CONC 33.6 g/dl (32.0-36.5); MEAN CORPUSCULAR VOLUME 94.5 fl (80.0-96.0); PLATELET COUNT, AUTOMATED 390 10^3/uL (150-450); RED BLOOD COUNT 3.25 10^6/uL (4.30-6.10); WHITE BLOOD COUNT 22.3 10^3/uL (4.0-10.0)
[2019-02-24 06:33] LABS: CALCIUM LEVEL 7.4 MG/DL (8.8-10.2); CREATININE FOR GFR 3.37 MG/DL (0.70-1.30); GLOMERULAR FILTRATION RATE 18.9 (>42); MAGNESIUM LEVEL 1.9 MG/DL (1.8-2.4)
--- NOTE | 2019-02-24 06:33 | IPN ---
DATE OF VISIT: 02/23/2019 HISTORY: Mr. Tracey is seen this morning on his bedside. He is feeling better and continues to diurese. His dyspnea and peripheral edema is improving. He denies any nausea or vomiting. PHYSICAL EXAMINATION: VITAL SIGNS: Temperature 97.6 degrees Fahrenheit, heart rate 99 per minute and respiratory rate 22 per minute. Blood pressure 117/60 mmHg and oxygen saturation 95%. HEENT/NECK: His head is atraumatic. Neck veins are mildly distended. There is no oral thrush or ulcers. HEART: Heart sounds are tachycardiac. LUNGS: Diminished breath sounds at bases. ABDOMEN: Soft and nontender and bowel sounds are normal. EXTREMITIES: Without cyanosis or clubbing. Peripheral edema is much improved on lower extremities. NEUROLOGICALLY: He is awake, alert and at his baseline mentation. LABORATORY DATA: Today's labs show WBC count 20.9, hemoglobin 9.6 and hematocrit 29.2. Platelets 421. Sodium 137, potassium 3.9, CO2 20, BUN 46 and creatinine 3.64. Glucose 98 and calcium 7.4. Total protein is 4.4 and albumin only 1.5. 24-hour urine protein is 20.8 grams. Urine protein electrophoresis and immunoelectrophoresis is pending. PROBLEMS: 1. Acute kidney injury superimposed on chronic kidney disease. This is most likely related to renal amyloidosis and severe nephrotic syndrome. No significant change in kidney function at this point and he does not have any uremic symptoms. We will continue to monitor his kidney function on a daily basis. 2. Hypokalemia. It was related to diuretic use and has improved with supplement. The patient is also on potassium-sparing diuretic which will be continued along with potassium supplement twice a day. Electrolytes will be monitored on a daily basis. 3. Acute on chronic diastolic congestive heart failure. The patient is diuresing nicely with IV Lasix and oral spironolactone. We will continue with the current dose unless we see significant increase in BUN and creatinine. He is holding his renal function stable and diuresing nicely. 4. Nephrotic syndrome and amyloidosis. The patient has known history of amyloidosis and he has severe nephrotic syndrome. His previous amount of proteinuria is not known at this point. Hematology and oncology will need to see and follow up. Urine protein and immuno electrophoresis are pending at this point. He is not a suitable candidate for LAVON inhibitor or angiotensin receptor tiff due to low blood pressure and advanced renal failure. 5. Anemia. His anemia is stable and his stool tested positive for occult blood. He will probably need an endoscopy at some point. 6. Protein calorie malnutrition. He has severe hypoalbuminemia related to massive protein loss in the urine. I am going to add Nepro 110 twice a day for nutritional supplement for him. His oral intake of protein is minimal.
[2019-02-24 08:00] VITALS: BP 94/56
[2019-02-24] MEDS: FUROSEMIDE 40 MG/4 ML VIAL (J1940) IV SCH ×3 (08:22→16:55)
[2019-02-24] MEDS: VITAMIN D 1,000 INTERNATIONAL UNITS TABLET PO SCH (08:56)
[2019-02-24] MEDS: SODIUM BICARBONATE 325 MG TAB PO SCH ×4 (08:56→21:25)
[2019-02-24] MEDS: DOCUSATE SODIUM 100 MG CAP PO SCH (08:57)
[2019-02-24] MEDS: POTASSIUM CHLORIDE 10 MEQ SR TABLET PO SCH ×3 (08:57→20:28)
[2019-02-24] MEDS: CYANOCOBALAMIN 500 MCG TAB PO SCH (08:57)
[2019-02-24] MEDS: SPIRONOLACTONE 25 MG TAB PO SCH ×2 (08:57→16:56)
[2019-02-24] MEDS: ASPIRIN 81 MG ENTERIC TAB PO SCH (08:57)
[2019-02-24] MEDS: SODIUM CHLORIDE 0.9% INJ 10 ML SYR IV SCH (08:58)
[2019-02-24] MEDS: HEPARIN SOD (PORCINE) 5000 UNITS/ML VIAL SC SCH ×2 (08:58→20:28)
[2019-02-24] MEDS: MIRALAX *UNIT DOSE* 17GM PACKET PO SCH (09:06)
[2019-02-24 12:00] VITALS: BP 104/62
--- NOTE | 2019-02-24 15:11 | IPNPDOC ---
Date Seen The patient was seen on 02/24/19. 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 Patient was seen and examined this morning. He has gotten out of his bed and was transferred to the wheelchair yesterday. Denies having any shortness of breath with transfer. He has no complaints today. Denies chest pain, worsening shortness of breath, cough, trouble breathing, palpitations nausea, vomiting, or diarrhea. Lower extremity edema has gotten a little better. No overnight events reported OBJECTIVE PHYSICAL EXAMINATION: VITAL SIGNS: Please see below. GENERAL: Elderly gentleman resting comfortably in bed, no acute distress. Fully conversant. Awake, alert and oriented times three. He is able to speak in full sentences without any accessory muscle use HEENT: Normocephalic atraumatic. Extraocular muscles intact. Anicteric sclerae. Supple with elevated central venous pressure (CVP). CARDIOVASCULAR: Irregular rhythm and rate controlled, normal S1, S2. No pericardial rub appreciated today. no audible murmurs noted. Distant heart sounds RESPIRATORY: Diminished breathe sounds bilaterally up to mid lung hol[place], dullness in percussion in the base bilaterally (improved). clear to auscultate in the upper lung hol[place]. ABDOMINAL: soft, positive bowl sounds in all four quadrants, no distended no fluid wave noted. , EXTREMITIES: anasarca, 2 to 3+ bilateral pitting edema in sacrum (thighs and lower extremity edema improved), upper extremity swelling improved. LABORATORY DATA, IMAGING STUDIES, MICROBIOLOGY: Please see below. Echocardiogram: 02/10/2019 Dr. Iyer IMPRESSION: 1. Normal global left ventricular systolic function with probably mild concentric left ventricular hypertrophy. Assessment of the left ventricular diastolic function was limited in view of the underlying atrial fibrillation. 2. Aortic valve sclerosis without stenosis or aortic regurgitation. 3. Mild mitral regurgitation. Subjectively, the left atrium appeared to be mildly enlarged. 4. A left pleural effusion was noted. No pericardial effusion. 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 PROBLEMS: Dyspnea likely secondary congestive heart failure secondary to atrial fibrillation versus hypervolemic status 2/2 amyloidosis of the kidneys and lungs. -negative for prior cardiac history or congestive heart failure (CHF) -ECHO above -Amyloidosis specialist, Dr. Aleks Stone in [place] at [facility] - if we have any questions regarding the patient's disease -Dr. Alberto manages his chemotherapy, last one was 02/19/19. consulted and will see the patient while admitted. -c/w IV Lasix per nephrology -[place] for strict in and out (I and O), elevated head of bed and weigh daily. 1800ml fluid restriction -Closely monitor his volume status. -2 units of albumin outpatient twice a week, s/p 2units during this admission -Nephrology consult, appreciate recommendations New onset Artial fibrillation -denies hx of a. fib -Placed on telemetry -VICKIE-VASC score: 5 -Discussed risk and benefits of anticoagulation. He refuses anticoagulation even though he understands the risk is having a stroke without it is high due to his underlying A. fib. -He is currently at home aspirin 81 mg daily, is agreeable to continue this but no additional medications. -We'll continue to monitor on telemetry to make sure that he is rate controlled. started PT, if stable with PT can consider discontinue tele in 24-48 hours. Acute kidney injury (AMAN) CKD III-IV -baseline creatinine appears to be around 2- 2.2; -baseline amyloidosis of the kidneys -nephrology consulted -Renal ultrasound: Increased renal cortical echogenicity pattern bilaterally, which is consistent with amyloidosis -Fully discussed with patient if he is more open to hemodialysis will discuss case with nephrology. Melena -two weeks of melanotic stools but denies any other gastrointestinal complaints -H/H stable -Stool occult positive -possible colonscopy outpatient upon discharge Chronic Leukocytosis possibly 2/2 baseline amyloidosis, chemo and chronic steroids. -afebrile, does not appear infectious, stating appropriately on room air -non-productive cough -will monitor Hyperlipidemia -c/w aspirin and statin. Vitamin D deficiency. -c/w vitamin D. Vitamin B12 deficiency. Continue vitamin B12. Subclinical hypothyroidism -TSH >10 even though T4 is wNL -continue with increased dose of Synthroid 112mg -need follow up in 4-6 weeks outpatient to recheck levels. DVT ppx -Heparin 5,000 units q12h VS, I&O, 24H, Fishbone Vital Signs/I&O Vital Signs Date Time Temp Pulse Resp B/P (MAP) Pulse Ox O2 Delivery O2 Flow Rate FiO2 02/24/19 12:00 97.2 82 17 104/62 (76) 95 02/20/19 14:12 Room Air I&O- Last 24 Hours up to 6 AM 02/24/19 06:00 Intake Total 1595 ml Output Total 2700 ml Balance -1105 ml Laboratory Data 24H LABS Laboratory Tests 2 02/24/19 05:53: Nucleated Red Blood Cells % (auto) 0.1H, Anion Gap 10, Glomerular Filtration Rate 18.9L, Blood Urea Nitrogen 43H, Creatinine 3.37H, Sodium Level 135L, Potassium Level 4.0, Chloride Level 106, Carbon Dioxide Level 19L, Calcium Level 7.4L, Magnesium Level 1.9 CBC/BMP Laboratory Tests 02/24/19 05:53 Red Blood Count 3.25 L, Mean Corpuscular Volume 94.5, Mean Corpuscular Hemoglobin 31.7, Mean Corpuscular Hemoglobin Concent 33.6, Red Cell Distribution Width 16.2 H, Calcium Level 7.4 L Microbiology Microbiology 02/22/19 Stool Occult Blood (SAEID) - Final, Complete GME ATTESTATION GME ATTESTATION My faculty preceptor for this patient encounter was physically present during the encounter and was fully available. All aspects of the patient interview, examination, medical decision making process, and medical care plan development were reviewed and approved by the faculty preceptor. The faculty preceptor is aware and concurs with the plan as stated in the body of this note and will attest to such by his/her cosignature. ATTENDING NOTE I saw and evaluated the patient. I agree with the findings and plan of care as documented in the resident's note KP ALCARAZ DO Feb 24, 2019 15:11 REJI LAM MD March 05, 2019 16:17
[2019-02-24 16:00] VITALS: BP 102/60
[2019-02-24] MEDS: ATORVASTATIN 20 MG TAB PO SCH (20:28)
[2019-02-24 22:00] VITALS: BP 106/58
[2019-02-25] MEDS: LEVOTHYROXINE 112MCG TABLET (0.112MG) PO SCH (05:35)
[2019-02-25 05:55] LABS: HEMOGLOBIN 9.9 g/dl (13.5-17.5); PLATELET COUNT, AUTOMATED 435 10^3/uL (150-450); RED BLOOD COUNT 3.19 10^6/uL (4.30-6.10); WHITE BLOOD COUNT 20.7 10^3/uL (4.0-10.0)
[2019-02-25 06:00] VITALS: BP 103/58
[2019-02-25 06:31] LABS: CALCIUM LEVEL 7.4 MG/DL (8.8-10.2); CREATININE FOR GFR 3.37 MG/DL (0.70-1.30); GLOMERULAR FILTRATION RATE 18.9 (>42); POTASSIUM SERUM 4.5 MEQ/L (3.5-5.1)
--- NOTE | 2019-02-25 08:12 | IPN ---
DATE OF VISIT: 02/24/2019 Mr. Tracey is seen this morning on his bedside. He is laying in bed covered with a blanket. He stated that he drank cold water and now he is feeling cold but denies any fever or chills. He denies any nausea or vomiting. He has been diuresing nicely with IV Lasix. PHYSICAL EXAMINATION: Temperature 98.2 degrees Fahrenheit, heart rate 82 per minute and respiratory rate 18 per minute. Blood pressure 104/62 mmHg and oxygen saturation 95%. Head is atraumatic. There is no oral thrush or ulcers. Neck is supple and jugular venous distention (JVD) is difficult to be assessed. I do not see any obvious neck vein distension. Heart sounds are regular and lungs with diminished breath sounds at bases. Abdomen is soft and nontender and bowel sounds are present. Extremities have no cyanosis or clubbing. Lower extremity edema has improved significantly since admission. Neurologically he is awake, alert and oriented times three. Intake and output records from yesterday showed total intake 1405 and output 2725. His weight is down to 75.8 kg. Today's labs show WBC count 22.3, hemoglobin 10.3 and hematocrit 30.7. Platelets 390. Sodium 135, potassium 4.0, CO2 19, BUN 43 and creatinine 3.37. Glucose 99 and calcium 7.4. Magnesium is 1.9. PROBLEMS: 1. Acute on chronic congestive heart failure. The patient is diuresing nicely without any rise in BUN and creatinine. We will continue the same diuretic until his BUN and creatinine starts rising and then we will slow down. He still has significant peripheral edema and we will continue to monitor his electrolytes and renal function on a daily basis while diuresing him. 2. Acute renal failure superimposed on chronic kidney disease. The patient has known history of amyloidosis and most likely his chronic kidney disease is because of amyloidosis. Kidney function is without any significant change since admission. He has mild fluctuations but no trend. We will continue to monitor his renal function closely. I have explained to the patient about risk of worsening kidney function with time and with diuresis. At this point there is no emergent indication for dialysis and he will need close monitoring. 3. Anemia. His anemia is stable and does not need any urgent intervention. 4. Amyloidosis and nephrotic syndrome. The patient has known history of amyloidosis by kidney biopsy and bone marrow biopsy. He has massive proteinuria with 24-hour urine protein of more than 20 grams. Urine protein electrophoresis and immunoelectrophoresis are still pending. He will need close followup by oncology. He is not a suitable candidate for LAVON inhibitor or angiotensin receptor blockers due to advanced kidney disease and hypotension.
[2019-02-25] MEDS: SODIUM CHLORIDE 0.9% INJ 10 ML SYR IV SCH (09:00)
[2019-02-25] MEDS: HEPARIN SOD (PORCINE) 5000 UNITS/ML VIAL SC SCH ×2 (09:29→21:00)
[2019-02-25] MEDS: FUROSEMIDE 40 MG/4 ML VIAL (J1940) IV SCH ×3 (09:30→16:26)
[2019-02-25] MEDS: SODIUM BICARBONATE 325 MG TAB PO SCH ×4 (09:30→21:00)
[2019-02-25] MEDS: DOCUSATE SODIUM 100 MG CAP PO SCH (09:31)
[2019-02-25] MEDS: ASPIRIN 81 MG ENTERIC TAB PO SCH (09:31)
[2019-02-25] MEDS: MIRALAX *UNIT DOSE* 17GM PACKET PO SCH (09:31)
[2019-02-25] MEDS: CYANOCOBALAMIN 500 MCG TAB PO SCH (09:31)
[2019-02-25] MEDS: POTASSIUM CHLORIDE 10 MEQ SR TABLET PO SCH ×3 (09:31→21:01)
[2019-02-25] MEDS: SPIRONOLACTONE 25 MG TAB PO SCH ×2 (09:34→16:26)
[2019-02-25] MEDS: VITAMIN D 1,000 INTERNATIONAL UNITS TABLET PO SCH (09:34)
[2019-02-25 14:00] VITALS: BP 107/55
--- NOTE | 2019-02-25 15:24 | IPNPDOC ---
Date Seen The patient was seen on 02/25/19. 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 Patient was seen and examined this morning resting in his bed. He denies any SOB, chest pain, cough, palpitations, fevers. He discussed his frustration with his weakness and disease progression since his accident 01/27/19. Caregiver was in the room and gave the history with patient that previously he was able to ambulate to his wheelchair with use of the walker and he is now having difficulties with that and using the commode by himself. It was encouraged to cooperate with PT/OT in order to increase strength. Patient had no other new concerns. Nursing reported no overnight events. OBJECTIVE PHYSICAL EXAMINATION: VITAL SIGNS: Please see below. GENERAL: Elderly gentleman resting comfortably in bed, no acute distress. Fully conversant. Awake, alert and oriented times three. He is able to speak in full sentences without any accessory muscle use HEENT: Normocephalic atraumatic. Extraocular muscles intact. Anicteric sclerae. Supple with elevated central venous pressure (CVP). CARDIOVASCULAR: Irregular rhythm and rate controlled, normal S1, S2. No pericardial rub appreciated today. no audible murmurs noted. Distant heart sounds RESPIRATORY: Diminished breathe sounds bilaterally up to mid lung holbrook, dul lness in percussion in the base bilaterally (improved). clear to auscultate in the upper lung holbrook. ABDOMINAL: soft, positive bowl sounds in all four quadrants, no distended no fluid wave noted. , EXTREMITIES: anasarca, 2+ bilateral pitting edema in sacrum (thighs and lower extremity edema improved), upper extremity swelling improved. LABORATORY DATA, IMAGING STUDIES, MICROBIOLOGY: Please see below. Echocardiogram: 02/10/2019 Dr. Iyer IMPRESSION: 1. Normal global left ventricular systolic function with probably mild concentric left ventricular hypertrophy. Assessment of the left ventricular diastolic function was limited in view of the underlying atrial fibrillation. 2. Aortic valve sclerosis without stenosis or aortic regurgitation. 3. Mild mitral regurgitation. Subjectively, the left atrium appeared to be mildly enlarged. 4. A left pleural effusion was noted. No pericardial effusion. 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 PROBLEMS: Dyspnea: likely secondary to CHF secondary to atrial fibrillation versus hypervolemic status 2/2 amyloidosis of the kidneys and lungs. -negative for prior cardiac history or congestive heart failure (CHF) -ECHO above -Amyloidosis specialist, Dr. Aleks Stone in [place] at [facility] - [phone] if we have any questions regarding the patient's disease -Dr. Alberto manages his chemotherapy, last one was 02/19/19. consulted and will see the patient while admitted. -c/w IV Lasix per nephrology -Engle for strict in and out (I and O), elevated head of bed and weigh daily. 1800ml fluid restriction -Closely monitor his volume status. -2 units of albumin outpatient twice a week, s/p 2units during this admission -Nephrology consult, appreciate recommendations New onset Artial fibrillation -Denies hx of a. fib -Placed on telemetry -VICKIE-VASC score: 5 -Discussed risk and benefits of anticoagulation. He refuses anticoagulation even though he understands the risk is having a stroke without it is high due to his underlying A. fib. -He is currently at home aspirin 81 mg daily, is agreeable to continue this but no additional medications. -Patient has continued to be rate controlled. Started PT, if stable with PT can consider discontinue tele in 24-48 hours. Acute kidney injury (AMAN) CKD III-IV -baseline amyloidosis of the kidneys, creatinine appears to be around 2- 2.2 -nephrology consulted -Renal ultrasound: Increased renal cortical echogenicity pattern bilaterally, which is consistent with amyloidosis -Fully discussed with patient if he is more open to hemodialysis will discuss case with nephrology. Melena -two weeks of melanotic stools but denies any other gastrointestinal complaints -H/H stable -Stool occult positive -possible colonscopy outpatient upon discharge Chronic Leukocytosis possibly 2/2 baseline amyloidosis, chemo and chronic steroids. -afebrile, does not appear infectious, stating appropriately on room air -non-productive cough -will monitor Hyperlipidemia -c/w aspirin and statin. Vitamin D deficiency. -c/w vitamin D. Vitamin B12 deficiency. Continue vitamin B12. Subclinical hypothyroidism -TSH >10 even though T4 is wNL -continue with increased dose of Synthroid 112mg -need follow up in 4-6 weeks outpatient to recheck levels. PT/OT -consulted DVT ppx -Heparin 5,000 units q12h VS, I&O, 24H, Fishbone Vital Signs/I&O Vital Signs Date Time Temp Pulse Resp B/P (MAP) Pulse Ox O2 Delivery O2 Flow Rate FiO2 02/25/19 06:00 97.8 91 18 103/58 (73) 95 02/20/19 14:12 Room Air I&O- Last 24 Hours up to 6 AM 02/25/19 07:00 Intake Total 1340 ml Output Total 2100 ml Balance -760 ml Laboratory Data 24H LABS Laboratory Tests 2 02/25/19 05:34: Nucleated Red Blood Cells % (auto) 0.1H, Anion Gap 10, Glomerular Filtration Rate 18.9L, Blood Urea Nitrogen 46H, Creatinine 3.37H, Sodium Level 135L, Potassium Level 4.5, Chloride Level 106, Carbon Dioxide Level 19L, Calcium Level 7.4L, Magnesium Level 2.0 CBC/BMP Laboratory Tests 02/25/19 05:34 Red Blood Count 3.19 L, Mean Corpuscular Volume 94.0, Mean Corpuscular Hemoglobin 31.0, Mean Corpuscular Hemoglobin Concent 33.0, Red Cell Distribution Width 16.2 H, Calcium Level 7.4 L Microbiology Microbiology 02/22/19 Stool Occult Blood (SAEID) - Final, Complete GME ATTESTATION GME ATTESTATION My faculty preceptor for this patient encounter was physically present during the encounter and was fully available. All aspects of the patient interview, examination, medical decision making process, and medical care plan development were reviewed and approved by the faculty preceptor. The faculty preceptor is aware and concurs with the plan as stated in the body of this note and will attest to such by his/her cosignature. ATTENDING NOTE I have reviewed the residents note and have personally examined the patient. I agree with the Residents physical examination and assessment and plan. PRASANNA LEE OMS-III Feb 25, 2019 11:12 KP ALCARAZ DO Feb 25, 2019 15:24 RAMIN RIVAS MD March 08, 2019 17:06
[2019-02-25] MEDS: SODIUM CHLORIDE 0.9% INJ 10 ML SYR IV PRN (16:27)
[2019-02-25] MEDS: ATORVASTATIN 20 MG TAB PO SCH (21:01)
[2019-02-25 22:00] VITALS: BP 106/57
[2019-02-26] VITALS: BP 96/62
--- NOTE | 2019-02-26 00:34 | IPN ---
DATE: 02/25/2019 SUBJECTIVE: The patient is seen and examined this morning lying in bed, denies any acute overnight events or issues. Continues to diurese well with a little over 3 liters urine output yesterday with fairly stable renal function. He remains overall deconditioned and weak, but denies chest pain, shortness of breath at rest or nausea, vomiting, diarrhea. VITAL SIGNS: Temperature 97.2, pulse 62, respiratory rate 18, blood pressure 107/55, saturating 99% on room air. Intake yesterday was 1400. Urine output yesterday was 3 liters, net negative 1.6 liters. Weight in the bed scale is 76 kg. GENERAL: The patient is seen lying down flat in bed, elderly male in no acute distress. Appears depressed. Head is atraumatic. Neck is supple. Jugular veins are difficult to assess, but do not seem elevated. Heart sounds are regular and lungs show symmetric air entry. The abdomen is soft and nontender. Genitourinary shows Engle catheter in place with urine. The extremities have no cyanosis or clubbing. The lower extremity edema continues to improve, is now only about trace. NEUROLOGIC: He is awake, alert and oriented times 3. PSYCHIATRIC: He appears depressed. LABORATORY: White 20.7, hemoglobin 9.9, platelets 435, sodium 135, potassium 4.5, bicarbonate 19, BUN 46, creatinine 3.3. INPATIENT MEDICATIONS: Reviewed by myself and no changes from prior. He continues on spironolactone 25 mg by mouth twice a day and Lasix 60 mg IV every 8 hours. PROBLEMS: 1. Hypervolemia, likely secondary to known amyloidosis, nephrotic range proteinuria, possible diastolic congestive heart failure. Volume status has been improving. Daily weights have down trended. He continues on combination IV Lasix, plus oral spironolactone. Renal function has been fairly plateau. He is following a fluid restriction and I think we can likely transition him to oral diuretics in the coming few days. 2. Acute renal failure superimposed on chronic kidney disease (CKD), stage III to IV. The patient's baseline creatinine is reportedly in the low 2s. He has a history of renal amyloidosis based on kidney biopsy. He is tolerating diuretics well. Renal function has been plateau the past several days. At present, there is no urgent indication for hemodialysis initiation, though we will monitor him closely for the same. He continues with Engle catheter, daily weights and monitoring of intake and output. Electrolytes are acceptable. 3. Acidosis. Common non-gap. The patient continues on oral sodium bicarbonate. 5. Anemia. Mild, unstable and no specific interventions at this time. 6. Amyloidosis with nephrotic range proteinuria with a history of kidney biopsy and bone marrow biopsy. He is under treatment with oncology. He is not suitable for LAVON or ARB initiation due to advanced chronic kidney disease and risk of hypotension. His renal prognosis is poor. MTDD
[2019-02-26] MEDS: LEVOTHYROXINE 112MCG TABLET (0.112MG) PO SCH (05:40)
[2019-02-26 06:00] VITALS: BP 101/59
[2019-02-26 06:06] LABS: HEMATOCRIT 29.9 % (42.0-52.0); HEMOGLOBIN 9.7 g/dl (13.5-17.5); MEAN CORPUSCULAR HEMOGLOBIN 30.7 pg (27.0-33.0); MEAN CORPUSCULAR HGB CONC 32.4 g/dl (32.0-36.5); MEAN CORPUSCULAR VOLUME 94.6 fl (80.0-96.0); PLATELET COUNT, AUTOMATED 390 10^3/uL (150-450); RED BLOOD COUNT 3.16 10^6/uL (4.30-6.10); WHITE BLOOD COUNT 19.7 10^3/uL (4.0-10.0)
[2019-02-26 06:21] LABS: CREATININE FOR GFR 3.28 MG/DL (0.70-1.30); GLOMERULAR FILTRATION RATE 19.5 (>42); MAGNESIUM LEVEL 1.8 MG/DL (1.8-2.4); POTASSIUM SERUM 4.3 MEQ/L (3.5-5.1)
[2019-02-26 08:00] VITALS: BP 102/59
[2019-02-26] MEDS: VITAMIN D 1,000 INTERNATIONAL UNITS TABLET PO SCH (08:29)
[2019-02-26] MEDS: SODIUM BICARBONATE 325 MG TAB PO SCH ×4 (08:29→20:29)
[2019-02-26] MEDS: FUROSEMIDE 40 MG/4 ML VIAL (J1940) IV SCH ×3 (08:29→16:25)
[2019-02-26] MEDS: SPIRONOLACTONE 25 MG TAB PO SCH ×2 (08:30→16:24)
[2019-02-26] MEDS: ASPIRIN 81 MG ENTERIC TAB PO SCH (08:30)
[2019-02-26] MEDS: SODIUM CHLORIDE 0.9% INJ 10 ML SYR IV SCH (08:30)
[2019-02-26] MEDS: POTASSIUM CHLORIDE 10 MEQ SR TABLET PO SCH ×2 (08:30→20:29)
[2019-02-26] MEDS: CYANOCOBALAMIN 500 MCG TAB PO SCH (08:30)
[2019-02-26] MEDS: DOCUSATE SODIUM 100 MG CAP PO SCH (08:30)
[2019-02-26] MEDS: MIRALAX *UNIT DOSE* 17GM PACKET PO SCH (08:30)
[2019-02-26] MEDS: HEPARIN SOD (PORCINE) 5000 UNITS/ML VIAL SC SCH ×2 (08:31→20:29)
--- NOTE | 2019-02-26 10:46 | IPNPDOC ---
Date Seen The patient was seen on 02/26/19. 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 Patient was seen and examined this morning resting in his bed. He denies any SOB, chest pain, cough, palpitations, fevers. He reports weakness but is agreeable with fully cooperating with PT to increase strength. OBJECTIVE PHYSICAL EXAMINATION: VITAL SIGNS: Please see below. GENERAL: Elderly gentleman resting comfortably in bed, no acute distress. Fully conversant. Awake, alert and oriented times three. He is able to speak in full sentences without any accessory muscle use HEENT: Normocephalic atraumatic. Extraocular muscles intact. Anicteric sclerae. Supple CARDIOVASCULAR: Irregular rhythm and rate controlled, normal S1, S2. No pericardial rub appreciated today. no audible murmurs noted. Distant heart soun ds RESPIRATORY: Diminished breath sounds bilaterally. Crackles present in the lower lung holbrook, Left> Right ABDOMINAL: soft, positive bowl sounds in all four quadrants, no distended no fluid wave noted. EXTREMITIES: anasarca, 1 to 2+ bilateral pitting edema in sacrum (thighs and lower extremity edema improved), upper extremity swelling improved. LABORATORY DATA, IMAGING STUDIES, MICROBIOLOGY: Please see below. Echocardiogram: 02/10/2019 Dr. Iyer IMPRESSION: 1. Normal global left ventricular systolic function with probably mild concentric left ventricular hypertrophy. Assessment of the left ventricular diastolic function was limited in view of the underlying atrial fibrillation. 2. Aortic valve sclerosis without stenosis or aortic regurgitation. 3. Mild mitral regurgitation. Subjectively, the left atrium appeared to be mildly enlarged. 4. A left pleural effusion was noted. No pericardial effusion. 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 PROBLEMS: Dyspnea: likely secondary to CHF secondary to atrial fibrillation versus hypervolemic status 2/2 amyloidosis of the kidneys and lungs. -negative for prior cardiac history or congestive heart failure (CHF) -ECHO above -Amyloidosis specialist, Dr. Aleks tSone in [place] at [facility] - if we have any questions regarding the patient's disease -Dr. Alberto manages his chemotherapy, last one was 02/19/19. consulted and will see the patient while admitted. -c/w IV Lasix per nephrology. Will discuss with nephrology possible transition to PO due to possible d/c to custodial tomorrow. -Engle for strict in and out (I and O), elevated head of bed and weigh daily. 1800ml fluid restriction -Closely monitor his volume status. -2 units of albumin outpatient twice a week, s/p 2units during this admission -Nephrology consult, appreciate recommendations New onset Artial fibrillation -Denies hx of a. fib -Placed on telemetry -VICKIE-VASC score: 5 -Discussed risk and benefits of anticoagulation. He refuses anticoagulation even though he understands the risk is having a stroke without it is high due to his underlying A. fib. -He is currently at home aspirin 81 mg daily, is agreeable to continue this but no additional medications. -Patient has continued to be rate controlled. Started PT, if stable with PT can consider discontinue tele Acute kidney injury (AMAN) CKD III-IV -baseline amyloidosis of the kidneys, creatinine appears to be around 2- 2.2 -nephrology consulted -Renal ultrasound: Increased renal cortical echogenicity pattern bilaterally, which is consistent with amyloidosis -Fully discussed with patient if he is more open to hemodialysis will discuss case with nephrology. Melena -two weeks of melanotic stools but denies any other gastrointestinal complaints -H/H stable -Stool occult positive -possible colonscopy outpatient upon discharge Chronic Leukocytosis possibly 2/2 baseline amyloidosis, chemo and chronic steroids. -afebrile, does not appear infectious, stating appropriately on room air -non-productive cough -will monitor Hyperlipidemia -c/w aspirin and statin. Vitamin D deficiency. -c/w vitamin D. Vitamin B12 deficiency. Continue vitamin B12. Subclinical hypothyroidism -TSH >10 even though T4 is wNL -continue with increased dose of Synthroid 112mg -need follow up in 4-6 weeks outpatient to recheck levels. PT/OT -consulted DVT ppx -Heparin 5,000 units q12h. DISPOSITION: possible discharged to custodial tomorrow morning. A-FIB/CHADSVASC A-FIB History Current/History of A-Fib/PAF?: Yes Current Oral Anticoagulant The: No (Patient refuses to take anticoagulation and understands risk) VS, I&O, 24H, Fishbone Vital Signs/I&O Vital Signs Date Time Temp Pulse Resp B/P (MAP) Pulse Ox O2 Delivery O2 Flow Rate FiO2 02/26/19 08:00 98.0 85 18 102/59 (73) 92 02/20/19 14:12 Room Air I&O- Last 24 Hours up to 6 AM 02/26/19 07:00 Intake Total 1640 ml Output Total 1950 ml Balance -310 ml Laboratory Data 24H LABS Laboratory Tests 2 02/26/19 05:40: Nucleated Red Blood Cells % (auto) 0.0, Anion Gap 9, Glomerular Filtration Rate 19.5L, Blood Urea Nitrogen 44H, Creatinine 3.28H, Sodium Level 136, Potassium Level 4.3, Chloride Level 107, Carbon Dioxide Level 20L, Calcium Level 7.0L, Mag nesium Level 1.8 CBC/BMP Laboratory Tests 02/26/19 05:40 Red Blood Count 3.16 L, Mean Corpuscular Volume 94.6, Mean Corpuscular Hemoglobin 30.7, Mean Corpuscular Hemoglobin Concent 32.4, Red Cell Distribution Width 16.2 H, Calcium Level 7.0 L Microbiology Microbiology 02/22/19 Stool Occult Blood (SAEID) - Final, Complete GME ATTESTATION GME ATTESTATION My faculty preceptor for this patient encounter was physically present during the encounter and was fully available. All aspects of the patient interview, examination, medical decision making process, and medical care plan development were reviewed and approved by the faculty preceptor. The faculty preceptor is aware and concurs with the plan as stated in the body of this note and will attest to such by his/her cosignature. ATTENDING NOTE I have reviewed the residents note and have personally examined the patient. I agree with the Residents physical examination and assessment and plan. PRASANNA LEE OMS-III Feb 26, 2019 10:46 RAMIN RIVAS MD March 08, 2019 16:55
[2019-02-26 14:00] VITALS: BP 109/58
[2019-02-26] MEDS: SODIUM CHLORIDE 0.9% INJ 10 ML SYR IV PRN (16:25)
--- NOTE | 2019-02-26 18:11 | IPN ---
DATE: 02/26/2019 SUBJECTIVE: Patient seen and examined this morning at the bedside. He is out of bed to the wheelchair. Physical therapy is trying to work with him, but the patient is very reluctant to engage in physical therapy (PT). He complains of pain every time he leaves the bed. His renal function is stable, and he is tolerating the diuresis well. He denies shortness of breath at rest. VITAL SIGNS: Temperature 98.0, pulse 85, respiratory rate 18, blood pressure 102/59, saturating 92% on room air. Intake yesterday was 1760. Urine output yesterday was 1650. Net positive 100 mL. Weight in the bed scale today is 76.1 kg. GENERAL: Patient is seen sitting in the wheelchair with restraints in place, elderly male. Appears weak and deconditioned. Flat affect. Appears depressed. HEAD: Atraumatic. NECK: Supple. Jugular veins are not elevated while he is sitting upright. HEART: Sounds are regular. LUNGS: Show symmetric air entry. ABDOMEN: Soft and nontender. GENITOURINARY: Shows Engle catheter in place with urine. EXTREMITIES: Have 1+ edema up to the mid shins. NEUROLOGIC: He is awake, alert, and oriented times three. PSYCHIATRIC: He appears depressed with a flat affect and poor eye contact. LABORATORY DATA: Sodium 136, potassium 4.3, bicarbonate 20, BUN 44, creatinine 3.2, magnesium 1.8. Hemoglobin 9.7. INPATIENT MEDICATIONS: I reduced the potassium to 10 mEq by mouth twice daily. Otherwise, his medications are unchanged from prior. PROBLEMS: 1. Acute renal failure superimposed on chronic kidney disease (CKD), stage III-IV. Patient's baseline creatinine is reportedly in the low 2's. He has a history of renal amyloidosis based upon kidney biopsy. He has been tolerating diuresis well. Renal function has been stable the past several days, and he is in a net negative fluid balance with clinical improvement in his hypervolemia. Electrolytes are acceptable, and at present there is no indication for hemodialysis initiation, though certainly with his significant proteinuria, he is at high risk for progressive renal failure down the road. 2. Hypervolemia, likely secondary to known amyloidosis with nephrotic-range proteinuria and possible diastolic congestive heart failure. Volume status has been improving. He continues on intravenous (IV) Lasix plus oral spironolactone. Potassium and magnesium are acceptable. Renal function has been fairly plateau with the diuretics. He continues on a fluid restriction. I would keep him on his IV Lasix at present until either rehabilitation has been arranged or until the kidney function shows any worsening. 3. Acidosis, non-gap. Patient continues on sodium bicarbonate. 4. Anemia, mild and stable. No specific intervention at present.
[2019-02-26] MEDS ORDERED: TORS20TA2 PO (18:18)
[2019-02-26] MEDS ORDERED: KLOR10TA76 PO (18:18)
[2019-02-26] MEDS ORDERED: ALDA25TA2 PO (18:18)
[2019-02-26] MEDS: ATORVASTATIN 20 MG TAB PO SCH (20:29)
[2019-02-26 22:00] VITALS: BP 103/55
[2019-02-27] MEDS: LEVOTHYROXINE 112MCG TABLET (0.112MG) PO SCH (05:59)
[2019-02-27 06:00] VITALS: BP 98/56
[2019-02-27] MEDS: FUROSEMIDE 40 MG/4 ML VIAL (J1940) IV SCH ×3 (08:00→16:00)
[2019-02-27 08:42] LABS: BASO # 0.2 10^3/uL (0.0-0.2); EOS # 0.4 10^3/uL (0.0-0.50); EOS % 2.2 % (0.0-3.0); HEMATOCRIT 30.6 % (42.0-52.0); LYMPH # 1.2 10^3/uL (1.5-4.5); LYMPH % 6.1 % (24.0-44.0); MEAN CORPUSCULAR HEMOGLOBIN 31.5 pg (27.0-33.0); MEAN CORPUSCULAR HGB CONC 32.7 g/dl (32.0-36.5); MEAN CORPUSCULAR VOLUME 96.5 fl (80.0-96.0); MONO # 1.5 10^3/uL (0.0-0.8); MONO % 7.9 % (0.0-5.0); NEUTROPHILS % 81.6 % (36.0-66.0); PLATELET COUNT, AUTOMATED 334 10^3/uL (150-450); RED BLOOD COUNT 3.17 10^6/uL (4.30-6.10); WHITE BLOOD COUNT 19.5 10^3/uL (4.0-10.0)
[2019-02-27] MEDS: SPIRONOLACTONE 25 MG TAB PO SCH ×2 (09:00→17:00)
[2019-02-27] MEDS: SODIUM CHLORIDE 0.9% INJ 10 ML SYR IV SCH (09:00)
[2019-02-27 09:09] LABS: CALCIUM LEVEL 7.3 MG/DL (8.8-10.2); CREATININE FOR GFR 3.33 MG/DL (0.70-1.30); GLOMERULAR FILTRATION RATE 19.2 (>42); POTASSIUM SERUM 4.2 MEQ/L (3.5-5.1)
[2019-02-27] MEDS: POTASSIUM CHLORIDE 10 MEQ SR TABLET PO SCH ×2 (09:56→21:34)
[2019-02-27] MEDS: HEPARIN SOD (PORCINE) 5000 UNITS/ML VIAL SC SCH ×2 (09:57→21:33)
[2019-02-27] MEDS: VITAMIN D 1,000 INTERNATIONAL UNITS TABLET PO SCH (09:57)
[2019-02-27] MEDS: MIRALAX *UNIT DOSE* 17GM PACKET PO SCH (09:57)
[2019-02-27] MEDS: CYANOCOBALAMIN 500 MCG TAB PO SCH (09:57)
[2019-02-27] MEDS: DOCUSATE SODIUM 100 MG CAP PO SCH (09:57)
[2019-02-27] MEDS: ASPIRIN 81 MG ENTERIC TAB PO SCH (09:58)
[2019-02-27 09:59] VITALS: BP 80/50
[2019-02-27] MEDS: SODIUM BICARBONATE 325 MG TAB PO SCH ×4 (10:06→21:34)
[2019-02-27 14:00] VITALS: BP 100/55
[2019-02-27] MEDS: BISACODYL 10 MG SUPP PR PRN (14:27)
[2019-02-27 14:38] VITALS: BP 85/58
[2019-02-27 14:40] LABS: UPEP INTERPRETATION NO M-SPIKE NOTED; URINE VOLUME 2650 ML
[2019-02-27] MEDS: ONDANSETRON 4MG/2ML VIAL (J2405) IV PRN (20:48)
[2019-02-27] MEDS: SODIUM CHLORIDE 0.9% INJ 10 ML SYR IV PRN (20:48)
[2019-02-27] MEDS: ATORVASTATIN 20 MG TAB PO SCH (21:34)
[2019-02-27 22:00] VITALS: BP 115/55
[2019-02-28] MEDS ORDERED: NS 250 ML IV ONE (01:00)
[2019-02-28 06:00] VITALS: BP 96/52
[2019-02-28] MEDS: LEVOTHYROXINE 112MCG TABLET (0.112MG) PO SCH (06:03)
[2019-02-28] MEDS: SPIRONOLACTONE 25 MG TAB PO SCH ×2 (09:00→17:00)
[2019-02-28] MEDS: SODIUM CHLORIDE 0.9% INJ 10 ML SYR IV SCH (09:00)
[2019-02-28] MEDS: VITAMIN D 1,000 INTERNATIONAL UNITS TABLET PO SCH (09:11)
[2019-02-28] MEDS: MIRALAX *UNIT DOSE* 17GM PACKET PO SCH (09:11)
[2019-02-28] MEDS: ASPIRIN 81 MG ENTERIC TAB PO SCH (09:11)
[2019-02-28] MEDS: SODIUM BICARBONATE 325 MG TAB PO SCH ×4 (09:11→22:04)
[2019-02-28] MEDS: DOCUSATE SODIUM 100 MG CAP PO SCH (09:12)
[2019-02-28] MEDS: CYANOCOBALAMIN 500 MCG TAB PO SCH (09:12)
[2019-02-28] MEDS: HEPARIN SOD (PORCINE) 5000 UNITS/ML VIAL SC SCH ×2 (09:12→22:05)
[2019-02-28] MEDS: POTASSIUM CHLORIDE 10 MEQ SR TABLET PO SCH ×2 (09:12→22:04)
--- NOTE | 2019-02-28 11:34 | IPNPDOC ---
Date Seen The patient was seen on 02/28/19. 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 Patient was seen and examined this morning resting in his bed. He denies any SOB, chest pain, cough, palpitations, fevers. He reports weakness and muscle soreness that has been present since an accident in January. An extensive discussion yesterday with case management about plan of action patient refuses to go to rehabilitation and is adamant on this decision this morning. Patient is open to discussing care with palliative care though. He is asymptomatic and has no complaints. Blood pressure medications have been placed on hold for today. He has no complaints. Because he had a map of 51, 250 mL fluids were given no other events reported. OBJECTIVE PHYSICAL EXAMINATION: VITAL SIGNS: Please see below. GENERAL: Elderly gentleman resting comfortably in bed, no acute distress. Fully conversant. Awake, alert and oriented times three. He is able to speak in full sentences without any accessory muscle use HEENT: Normocephalic atraumatic. Extraocular muscles intact. Anicteric sclerae. Supple CARDIOVASCULAR: Irregular rhythm and rate controlled, normal S1, S2. No pericardial rub appreciated today. no audible murmurs noted. Distant heart sounds RESPIRATORY: Clear to auscultate in the upper lobes. Better aeration in the lower lobe slightly diminished (Improved since admission) ABDOMINAL: soft, positive bowl sounds in all four quadrants, no distended no fluid wave noted. EXTREMITIES: anasarca, 1+ edema in the LE, upper extremity swelling improved. LABORATORY DATA, IMAGING STUDIES, MICROBIOLOGY: Please see below. Echocardiogram: 02/10/2019 Dr. Iyer IMPRESSION: 1. Normal global left ventricular systolic function with probably mild concentric left ventricular hypertrophy. Assessment of the left ventricular diastolic function was limited in view of the underlying atrial fibrillation. 2. Aortic valve sclerosis without stenosis or aortic regurgitation. 3. Mild mitral regurgitation. Subjectively, the left atrium appeared to be mildly enlarged. 4. A left pleural effusion was noted. No pericardial effusion. 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 PROBLEMS: Dyspnea: likely secondary to CHF secondary to atrial fibrillation versus hypervolemic status 2/2 amyloidosis of the kidneys and lungs. -negative for prior cardiac history or congestive heart failure (CHF) -ECHO above -Amyloidosis specialist, Dr. Aleks Stone in [place] at [facility] - if we have any questions regarding the patient's disease -Dr. Alberto manages his chemotherapy, last one was 02/19/19. consulted and will see the patient while admitted. -c/w IV Lasix per nephrology. Will discuss with nephrology transitioning to PO at discharge (held today) -C/w spironolactone (held today because of soft pressures will continue to monitor closely) -Engle for strict in and out (I and O), elevated head of bed and weigh daily. 1800ml fluid restriction -Closely monitor his volume status. -2 units of albumin outpatient twice a week, s/p 2units during this admission -Nephrology consult, appreciate recommendations New onset Artial fibrillation (rate controlled at rest) -Denies hx of a. fib -Placed on telemetry -VICKIE-VASC score: 5 -Discussed risk and benefits of anticoagulation. He refuses anticoagulation even though he understands the risk is having a stroke without it is high due to his underlying A. fib. -He is currently at home aspirin 81 mg daily, is agreeable to continue this but no additional medications. Acute kidney injury (AMAN) CKD III-IV -baseline amyloidosis of the kidneys, creatinine appears to be around 2- 2.2 -nephrology consulted -Renal ultrasound: Increased renal cortical echogenicity pattern bilaterally, which is consistent with amyloidosis -Fully discussed with patient if he is more open to hemodialysis will discuss case with nephrology. Melena -two weeks of melanotic stools but denies any other gastrointestinal complaints -H/H stable -Stool occult positive -possible colonscopy outpatient upon discharge Chronic Leukocytosis possibly 2/2 baseline amyloidosis, chemo and chronic steroids. -afebrile, does not appear infectious, stating appropriately on room air -will monitor Hyperlipidemia -c/w aspirin and statin. Vitamin D deficiency. -c/w vitamin D. Vitamin B12 deficiency. Continue vitamin B12. Subclinical hypothyroidism -TSH >10 even though T4 is wNL -continue with increased dose of Synthroid 112mg -need follow up in 4-6 weeks outpatient to recheck levels. PT/OT -consulted DVT ppx -Heparin 5,000 units q12h. pfs -Patient refuses to go to rehabilitation. Open to discussing case with palliative care -Consulted PFS DISPOSITION: social issues. A-FIB/CHADSVASC A-FIB History Current/History of A-Fib/PAF?: Yes Current Oral Anticoagulant The: No (patient refuses to take anticoagultion and understand the risk of stroke. ) VS, I&O, 24H, Fishbone Vital Signs/I&O Vital Signs Date Time Temp Pulse Resp B/P (MAP) Pulse Ox O2 Delivery O2 Flow Rate FiO2 02/28/19 06:00 98.5 89 20 96/52 (67) 90 I&O- Last 24 Hours up to 6 AM 02/28/19 06:00 Intake Total 950 ml Output Total 1100 ml Balance -150 ml Laboratory Data Microbiology Microbiology 02/22/19 Stool Occult Blood (SAEID) - Final, Complete GME ATTESTATION GME ATTESTATION My faculty preceptor for this patient encounter was physically present during the encounter and was fully available. All aspects of the patient interview, examination, medical decision making process, and medical care plan development were reviewed and approved by the faculty preceptor. The faculty preceptor is aware and concurs with the plan as stated in the body of this note and will attest to such by his/her cosignature. ATTENDING NOTE I have reviewed the residents note and have personally examined the patient. I agree with the Residents physical examination and assessment and plan. KP ALCARAZ DO Feb 28, 2019 11:34 RAMIN RIVAS MD March 08, 2019 17:11
[2019-02-28] MEDS ORDERED: FUROSEMIDE 40 MG/4 ML VIAL (J1940) IV SCH (12:00)
[2019-02-28 14:00] VITALS: BP 97/54
[2019-02-28 16:55] LABS: HEMATOCRIT 30.7 % (42.0-52.0); MEAN CORPUSCULAR HEMOGLOBIN 31.9 pg (27.0-33.0); MEAN CORPUSCULAR HGB CONC 32.6 g/dl (32.0-36.5); MEAN CORPUSCULAR VOLUME 98.1 fl (80.0-96.0); PLATELET COUNT, AUTOMATED 342 10^3/uL (150-450); RED BLOOD COUNT 3.13 10^6/uL (4.30-6.10); WHITE BLOOD COUNT 19.6 10^3/uL (4.0-10.0)
--- NOTE | 2019-02-28 16:59 | IPN ---
DATE: 02/27/2019 SUBJECTIVE: Patient seen and examined this morning lying in bed. He denies any new complaints. Has generalized weakness. Has not been participating with physical therapy. Denies shortness of breath at rest. He continues to appear quite depressed and is not interested in much conversation. VITAL SIGNS: Temperature 97.9, pulse 73, respiratory rate 20, blood pressure 115/55, saturating 100% on room air. Intake yesterday was 950. Urine output yesterday was 1 liter. Weight in the bed scale today is 86.3 kg, which is significantly different from prior and likely inaccurate. GENERAL: Patient is seen lying down fairly flat in bed. Elderly-appearing male in no distress. Awake, alert, and oriented times three. Extraocular muscles are intact. His tongue is moist. His jugular veins are not elevated. HEART: Sounds are regular, S1, S2. There is trace to 1+ edema in the peripheries. LUNGS: Show symmetric air entry bilaterally. No wheezing or crackles. He is comfortable on room air and is lying fairly flat. ABDOMEN: Soft and nontender. There is a Engle catheter in place with urine. NEUROLOGIC: He is awake, alert, and oriented. PSYCHIATRIC: He appears depressed with flat affect and poor eye contact. LABORATORY DATA: His urine protein electrophoresis showed no M spike and no Bence Downey proteins. Sodium 135, potassium 4.2, bicarbonate 20, BUN 45, creatinine 3.3. Hemoglobin 10, platelets 334. INPATIENT MEDICATIONS: Reviewed by myself and no change from prior. 1. Acute kidney injury superimposed on chronic kidney disease (CKD), stage IV. Patient's baseline creatinine is in the low 2's. He has a history of renal amyloid based upon kidney biopsy. He has severe nephrotic-range proteinuria. His paraprotein workup was negative for Bence Downey proteins and negative for a urinary M spike. He is not a candidate for angiotensin-converting enzyme (LAVON) or angiotensin receptor tiff (ARB). He has been tolerating his diuresis well. Renal function has been stable the past week with clinical improvement in hypervolemia. Electrolytes remain acceptable, and at present there is no indication for dialysis initiation, although given his significant proteinuria, he is at high risk for progressive renal failure down the road. 2. Hypervolemia, likely secondary to amyloidosis with nephrotic-range proteinuria and possible diastolic congestive heart failure. Volume status has been improving. His daily weights are unreliable. He had episodes of hypotension, so I am decreasing the frequency of Lasix. His potassium and magnesium are acceptable. His renal function has been plateaued the past week. He continues on a fluid restriction. 3. Non-gapped metabolic acidosis. This is mild and stable, and he continues on sodium bicarbonate.
[2019-02-28 22:00] VITALS: BP 101/60
[2019-02-28] MEDS: ATORVASTATIN 20 MG TAB PO SCH (22:05)
[2019-02-28 22:18] LABS: CALCIUM LEVEL 7.3 MG/DL (8.8-10.2); CREATININE FOR GFR 3.35 MG/DL (0.70-1.30); GLOMERULAR FILTRATION RATE 19.1 (>42); MAGNESIUM LEVEL 1.9 MG/DL (1.8-2.4); POTASSIUM SERUM 4.3 MEQ/L (3.5-5.1)
[2019-03-01] MEDS: LEVOTHYROXINE 112MCG TABLET (0.112MG) PO SCH (05:33)
[2019-03-01] MEDS: SODIUM CHLORIDE 0.9% INJ 10 ML SYR IV PRN (05:33)
[2019-03-01 06:00] VITALS: BP 103/62
[2019-03-01 06:02] LABS: HEMATOCRIT 29.5 % (42.0-52.0); HEMOGLOBIN 9.5 g/dl (13.5-17.5); MEAN CORPUSCULAR HEMOGLOBIN 31.5 pg (27.0-33.0); MEAN CORPUSCULAR HGB CONC 32.2 g/dl (32.0-36.5); MEAN CORPUSCULAR VOLUME 97.7 fl (80.0-96.0); PLATELET COUNT, AUTOMATED 337 10^3/uL (150-450); RED BLOOD COUNT 3.02 10^6/uL (4.30-6.10); WHITE BLOOD COUNT 18.2 10^3/uL (4.0-10.0)
[2019-03-01 06:37] LABS: CALCIUM LEVEL 7.2 MG/DL (8.8-10.2); CREATININE FOR GFR 3.45 MG/DL (0.70-1.30); GLOMERULAR FILTRATION RATE 18.4 (>42); POTASSIUM SERUM 4.2 MEQ/L (3.5-5.1)
[2019-03-01] MEDS: SODIUM CHLORIDE 0.9% INJ 10 ML SYR IV SCH (07:25)
[2019-03-01] MEDS: SPIRONOLACTONE 25 MG TAB PO SCH (09:00)
[2019-03-01] MEDS: POTASSIUM CHLORIDE 10 MEQ SR TABLET PO SCH (09:51)
[2019-03-01] MEDS: CYANOCOBALAMIN 500 MCG TAB PO SCH (09:51)
[2019-03-01] MEDS: MIRALAX *UNIT DOSE* 17GM PACKET PO SCH (09:51)
[2019-03-01] MEDS: SODIUM BICARBONATE 325 MG TAB PO SCH ×2 (09:51→13:00)
[2019-03-01] MEDS: VITAMIN D 1,000 INTERNATIONAL UNITS TABLET PO SCH (09:51)
[2019-03-01] MEDS: ASPIRIN 81 MG ENTERIC TAB PO SCH (09:52)
[2019-03-01] MEDS: HEPARIN SOD (PORCINE) 5000 UNITS/ML VIAL SC SCH (09:53)
[2019-03-01] MEDS: DOCUSATE SODIUM 100 MG CAP PO SCH (09:53)
--- NOTE | 2019-03-01 12:44 | IPNPDOC ---
Text Note Date of Service The patient was seen on 03/01/19. NOTE SUBJECTIVE: Patient was seen and examined this morning resting in his bed. He denies any SOB, chest pain, cough, palpitations, fevers. He reports weakness and muscle soreness that has been present since an accident in January. There has been ongoing daily extensive discussion with case management about plan of action patient refuses to go to rehabilitation and is adamant on this decision . Patient was open to discussing care with palliative care. Pateint has been leaning to wards going home with palliative care or hospice. Dr Alberto has said to the patient that his prognosis is very poor. As per nephrology his renal status is unlikely to recover. OBJECTIVE PHYSICAL EXAMINATION: VITAL SIGNS: Please see below. GENERAL: Elderly gentleman resting comfortably in bed, no acute distress. Fully conversant. Awake, alert and oriented times three. He is able to speak in full sentences without any accessory muscle use HEENT: Normocephalic atraumatic. Extraocular muscles intact. Anicteric sclerae. Supple CARDIOVASCULAR: Irregular rhythm and rate controlled, normal S1, S2. No pericardial rub appreciated today. no audible murmurs noted. Distant heart sounds RESPIRATORY: Clear to auscultate in the upper lobes. Better aeration in the lower lobe slightly diminished (Improved since admission) ABDOMINAL: soft, positive bowl sounds in all four quadrants, no distended no fluid wave noted. EXTREMITIES: anasarca, 1+ edema in the LE, upper extremity swelling improved. LABS and Radiology: reviewed. Echocardiogram: 02/10/2019 Dr. Iyer IMPRESSION: 1. Normal global left ventricular systolic function with probably mild concentric left ventricular hypertrophy. Assessment of the left ventricular diastolic function was limited in view of the underlying atrial fibrillation. 2. Aortic valve sclerosis without stenosis or aortic regurgitation. 3. Mild mitral regurgitation. Subjectively, the left atrium appeared to be mildly enlarged. 4. A left pleural effusion was noted. No pericardial effusion. 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 Acute CHF with preserved EF diastolic function could not be assessed due to atrial fibrillation secondary to atrial fibrillation and hypervolemic status 2/2 amyloidosis of the kidneys and lungs. continue spironolactone. Lasix stopped because of episodes of hypotension. will resume at lower dose However blood pressures soft yesterday so diuretics held. Engle for strict in and out (I and O), elevated head of bed and weigh daily. 1800ml fluid restriction monitor his volume status. Nephrology consult, appreciate recommendations Primary amyloidosis On chemotherapy Amyloidosis specialist, Dr. Aleks Stone in [place] at [facility] - [phone] if we have any questions regarding the patient's disease Dr. Alberto manages his chemotherapy, last one was 02/19/19. 2 units of albumin outpatient twice a week, s/p 2units during this admission New onset Atrial fibrillation (rate controlled at rest) VICKIE-VASC score: 5 Discussed risk and benefits of anticoagulation. He refuses anticoagulation even though he understands the risk is having a stroke without it is high due to his underlying A. fib. He is currently at home aspirin 81 mg daily, is agreeable to continue this but no additional medications. Acute kidney injury (AMAN) on CKD III-IV baseline amyloidosis of the kidneys, creatinine appears to be around 2- 2.2 Now creatinine in mid 3s. Melena two weeks of melanotic stools but denies any other gastrointestinal complaints H/H stable Stool occult positive possible colonscopy outpatient upon discharge Chronic Leukocytosis possibly 2/2 baseline amyloidosis, chemo and chronic steroids. afebrile, does not appear infectious, stating appropriately on room air will monitor Hyperlipidemia c/w aspirin and statin. Vitamin D deficiency. c/w vitamin D. Vitamin B12 deficiency. Continue vitamin B12. Subclinical hypothyroidism TSH >10 even though T4 is wNL continue with increased dose of Synthroid 112mg need follow up in 4-6 weeks outpatient to recheck levels. PT/OT consulted DVT ppx Heparin 5,000 units q12h. pfs Patient refuses to go to rehabilitation. Open to discussing case with palliative care Consulted PFS DISPOSITION: social issues. A-FIB/CHADSVASC A-FIB History Current/History of A-Fib/PAF?: Yes Current Oral Anticoagulant The: No VS,Fishbone, I+O VS, Fishbone, I+O Laboratory Tests 02/28/19 16:35 Red Blood Count 3.13 L, Mean Corpuscular Volume 98.1 H, Mean Corpuscular Hemo globin 31.9, Mean Corpuscular Hemoglobin Concent 32.6, Red Cell Distribution Width 16.7 H 03/01/19 05:48 Red Blood Count 3.02 L, Mean Corpuscular Volume 97.7 H, Mean Corpuscular Hemoglobin 31.5, Mean Corpuscular Hemoglobin Concent 32.2, Red Cell Distribution Width 16.5 H, Calcium Level 7.2 L Vital Signs Date Time Temp Pulse Resp B/P (MAP) Pulse Ox O2 Delivery O2 Flow Rate FiO2 03/01/19 06:00 97.8 83 17 103/62 (88) 94 I&O- Last 24 Hours up to 6 AM 03/01/19 06:00 Intake Total 1380 ml Output Total 1250 ml Balance 130 ml RAMIN RIVAS MD Mar 01, 2019 12:44
[2019-03-02 06:00] VITALS: BP 123/71
[2019-03-02] MEDS: LEVOTHYROXINE 112MCG TABLET (0.112MG) PO SCH (06:55)
[2019-03-02] MEDS: MIRALAX *UNIT DOSE* 17GM PACKET PO SCH (07:43)
[2019-03-02] MEDS: DOCUSATE SODIUM 100 MG CAP PO SCH (07:43)
--- NOTE | 2019-03-02 12:38 | IPNPDOC ---
Text Note Date of Service The patient was seen on 03/02/19. NOTE SUBJECTIVE: Patient was seen and examined this morning resting in his bed. He denies any SOB, chest pain, cough, palpitations, fevers. Just says he is weak and wants to go Home. He just wants to be kept comfortable. HE is now IN PHOTOGRAPHY SPOTTER status after his discussion with the punchboard assembler. will consult hospice. He seen to be enjoying his breakfast. OBJECTIVE PHYSICAL EXAMINATION: GENERAL: Elderly gentleman resting comfortably in bed, no acute distress. Fully conversant. Awake, alert and oriented times three. He is able to speak in full sentences without any accessory muscle use HEENT: Normocephalic atraumatic. Extraocular muscles intact. Anicteric sclerae. Supple CARDIOVASCULAR: Irregular rhythm and rate controlled, normal S1, S2. No pericardial rub appreciated today. no audible murmurs noted. Distant heart sounds RESPIRATORY: Clear to auscultate in the upper lobes. ABDOMINAL: soft, positive bowl sounds in all four quadrants, no distended no fluid wave noted. 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 He is now in PHOTOGRAPHY SPOTTER status. PHOTOGRAPHY SPOTTER will give morphine and ativan for SOB, Anxiety. Continue stool softners continue lasix to keep the fluid under control. Home hospice. Oxygen if required. Acute CHF with preserved EF diastolic function could not be assessed due to atrial fibrillation continue lasix. Acute kidney injury (AMAN) on CKD III-IV baseline amyloidosis of the kidneys, creatinine appears to be around 2- 2.2 Now creatinine in mid 3s. Primary Amyloidosis since 2016 progressive with not much response to treatment. New onset Atrial fibrillation (rate controlled at rest) VICKIE-VASC score: 5 GIB ongoing. Chronic Leukocytosis possibly 2/2 baseline amyloidosis, chemo and chronic steroids. Hyperlipidemia Vitamin D deficiency. Vitamin B12 deficiency. Continue vitamin B12. Subclinical hypothyroidism continue synthroid, DISPOSITION: Home hospice. VS,Fishbone, I+O VS, Fishbone, I+O Vital Signs Date Time Temp Pulse Resp B/P (MAP) Pulse Ox O2 Delivery O2 Flow Rate FiO2 03/02/19 06:00 97.6 85 18 123/71 (78) 98 I&O- Last 24 Hours up to 6 AM 03/02/19 06:00 Intake Total 1065 ml Output Total 1100 ml Balance -35 ml RAMIN RIVAS MD Mar 02, 2019 12:38
--- NOTE | 2019-03-02 14:10 | IPN ---
DATE OF SERVICE: 03/01/2019 SUBJECTIVE: The patient was seen and examined at the bedside today morning. The patient is pending evaluation by palliative care. A consult was requested yesterday, but that because of the weekend, so far he has not been evaluated by them. The patient is actively expressing that all the healthcare that he is receiving so far is futile. He has not want to continue the treatment of amyloidosis. He does not want to continue any chemotherapy. He is also in renal failure, but he does not wish to have any renal replacement therapy, and he told me that he has lived his life. He does not want any aggressive management or further treatments. He wants to make himself comfortable only, and he is aware that if he stops all the treatment, he would likely not survive this hospitalization. OBJECTIVE: Vital signs: Temperature 97.8 degrees Fahrenheit, blood pressure 103/62, pulse is 83, respiratory rate of 17, saturating 94% on room air. Intake and output: Urine output recorded is 1.2 liters yesterday, 1 liter so far today since overnight. Weight in the bed scale is 75.6 kg. PHYSICAL EXAMINATION: General: The patient is awake, alert, oriented times three, laying in bed with a depressed mood. Head and neck examination: Extraocular muscles intact. Pupils equally round and reactive to light. Mucous membranes are moist. Neck is supple. There is no jugular venous distention (JVD). Cardiovascular: S1, S2, regular rate. 1+ edema of the bilateral lower extremities. Respiratory: Mildly decreased breath sounds at the bases. Otherwise, no active rales or rhonchi. Abdomen: Soft, nontender. Positive bowel sounds. Genitourinary: He has an indwelling Engle catheter. Urine at the bag is light yellow. Musculoskeletal: He has 1+ edema of the bilateral lower extremities. Otherwise, no clubbing or cyanosis. Central nervous system (FIRMWARE ENGINEER): The patient is oriented times three. He is able to follow commands and move upper extremities on command. H Psychiatric: He has a depressed mood. LABORATORY REVIEW: Complete blood count (CBC) showed a WBC 18.2, hemoglobin 9.5, platelets are 337. Basic metabolic profile (BMP) showed sodium 134, potassium 4.2, chloride 105, bicarbonate 20, BUN 45, creatinine is 3.4, GFR 18.2, calcium 7.2, magnesium is 2. CURRENT INPATIENT MEDICATIONS: The patient's medications were all reviewed by me. He continues to be on spironolactone, sodium bicarbonate, and potassium. There is no change in medications today as compared with yesterday. ASSESSMENT AND PLAN: 1. Acute renal failure superimposed on chronic kidney disease stage IV. There is no significant improvement in the renal function. He is being gently diuresed for congestive heart failure (CHF). His creatinine has been fluctuating at 3.3 to 3.4. I discussed with the patient about his renal failure and possibility of needing dialysis, but the patient does not wish to have any renal replacement therapy at this point. 2. Non-anion gap metabolic acidosis. It is secondary to renal failure. The patient is getting oral bicarbonate. However, the patient wishes to be comfort care only. Medications are being stopped at this point. 3. Primary amyloidosis. The patient was getting chemotherapy and albumin infusions as outpatient. The patient expressed to me that there is no point in continuing the chemotherapy. He is not getting any better, and he wishes to stop all the treatments. DISPOSITION: The patient is oriented times three. He does not wish to have any more medical treatment. He wants to keep himself comfortable only. He wishes to go to Hospice. I got a Medical Orders for Life-Sustaining Treatment (MOLST) form signed by the patient. It was placed in the chart. Plan of care was discussed with the hospitalist, Dr. Belkys Cota, as well. Nephrology service has nothing more to offer at this point. I am going to sign off the case at this point. The rest of the management and further Hospice evaluation and transfer will be done by the primary team.
[2019-03-02] MEDS: FUROSEMIDE 40 MG TAB PO SCH (18:24)
[2019-03-03] MEDS: ONDANSETRON 4MG/2ML VIAL (J2405) IV PRN (00:08)
[2019-03-03] MEDS: LEVOTHYROXINE 112MCG TABLET (0.112MG) PO SCH (05:26)
[2019-03-03] MEDS: FUROSEMIDE 40 MG TAB PO SCH ×2 (08:28→17:00)
[2019-03-03] MEDS: DOCUSATE SODIUM 100 MG CAP PO SCH (08:28)
[2019-03-03] MEDS: MIRALAX *UNIT DOSE* 17GM PACKET PO SCH (08:29)
--- NOTE | 2019-03-03 11:09 | IPNPDOC ---
Date Seen The patient was seen on 03/03/19. Progress Note SUBJECTIVE: Patient is a 79 year-old male with amyloidosis. I was contacted February 28, 2019 at 1645 to assess him for Palliative Care. I informed his environmental emergencies planner I would notseehim untl today and this was thought to be fine. This morning he informs me he is on hospice, and thathe expects to be going to the hospice facility as soon as a bed is available. OBJECTIVE PHYSICAL EXAMINATION: VITAL SIGNS: Please see below. GENERAL: Drowsy, kept eyes closed during my time there. His repsonses seemed appropriate, he was annoyed I was asking about his wishes for care at this time as he felt this was already arranged. He was irritable but denied any physical pain. He reported he has chosen to stop taking medication for amyloidosis and understands this will result in his . He stated he is tired of dealing with all his chronic illnesses, he is not suicidal, he simply wants his care to be directed at what is most important to him which is to eliminate as much medication as possible and be comfortable. PROBLEMS: 1. Amyloidosis. He certainly appears to meet criteria for hospice. I will work to determine if a referral was actually made to hospice and if the plan is to transfer him to the hospice residence or not. A-FIB/CHADSVASC A-FIB History Current/History of A-Fib/PAF?: No Current Oral Anticoagulant The: No (xxx) VS, I&O, 24H, Fishbone Vital Signs/I&O Vital Signs Date Time Temp Pulse Resp B/P (MAP) Pulse Ox O2 Delivery O2 Flow Rate FiO2 03/02/19 06:00 97.6 85 18 123/71 (88) 98 I&O- Last 24 Hours up to 6 AM 03/03/19 06:00 Intake Total 750 ml Output Total 1000 ml Balance -250 ml Laboratory Data Microbiology Microbiology 02/22/19 Stool Occult Blood (SAEID) - Final, Complete [place] TORRES [employer] PARAPROFESSIONAL Mar 03, 2019 11:09
[2019-03-04] MEDS: LEVOTHYROXINE 112MCG TABLET (0.112MG) PO SCH (05:47)
[2019-03-04] MEDS: FUROSEMIDE 40 MG TAB PO SCH ×2 (07:47→13:17)
[2019-03-04] MEDS: DOCUSATE SODIUM 100 MG CAP PO SCH (07:47)
[2019-03-04] MEDS: MIRALAX *UNIT DOSE* 17GM PACKET PO SCH (07:47)
--- NOTE | 2019-03-04 11:54 | IPNPDOC ---
Text Note Date of Service The patient was seen on 03/04/19. NOTE SUBJECTIVE: Patient seen and examined at bedside. No acute overnight events reported. No new medical complaints. OBJECTIVE PHYSICAL EXAMINATION: GENERAL: Elderly gentleman resting comfortably in bed, no acute distress. Fully conversant. Awake, alert and oriented times three. He is able to speak in full sentences without any accessory muscle use HEENT: Normocephalic atraumatic. Extraocular muscles intact. Anicteric sclerae. Supple CARDIOVASCULAR: Irregular rhythm and rate controlled, normal S1, S2. RESPIRATORY: Clear to auscultate in the upper lobes. ABDOMINAL: soft, positive bowl sounds in all four quadrants, no distended no fluid wave noted. 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 He is now in STRIP DEBURRER status. #STRIP DEBURRER will give morphine and ativan for SOB, Anxiety. Continue stool softners continue lasix to keep the fluid under control. Home hospice. Oxygen if required. 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 #New onset Atrial fibrillation (rate controlled at rest) - VICKIE-VASC score: 5 #GIB ongoing. #Chronic Leukocytosis possibly 2/2 baseline amyloidosis, chemo and chronic steroids. #Hyperlipidemia #Vitamin D deficiency. #Vitamin B12 deficiency. Continue vitamin B12. #Subclinical hypothyroidism DISPOSITION: Home hospice. VS,Fishbone, I+O VS, Fishbone, I+O Vital Signs Date Time Temp Pulse Resp B/P (MAP) Pulse Ox O2 Delivery O2 Flow Rate FiO2 03/02/19 06:00 97.6 85 18 123/71 (88) 98 I&O- Last 24 Hours up to 6 AM 03/04/19 05:59 Intake Total 240 ml Output Total 1375 ml Balance -1135 ml TEMO MENDIOLA MD Mar 04, 2019 11:54
[2019-03-05] MEDS: DOCUSATE SODIUM 100 MG CAP PO SCH (08:38)
[2019-03-05] MEDS: MIRALAX *UNIT DOSE* 17GM PACKET PO SCH (08:39)
[2019-03-05] MEDS: FUROSEMIDE 40 MG TAB PO SCH ×2 (08:39→17:00)
--- NOTE | 2019-03-05 11:38 | IPNPDOC ---
Text Note Date of Service The patient was seen on 03/05/19. NOTE SUBJECTIVE: Patient seen and examined at bedside. No acute overnight events reported. No new medical complaints. OBJECTIVE PHYSICAL EXAMINATION: GENERAL: Elderly gentleman resting comfortably in bed, no acute distress. Fully conversant. Awake, alert and oriented times three. He is able to speak in full sentences without any accessory muscle use HEENT: Normocephalic atraumatic. Extraocular muscles intact. Anicteric sclerae. Supple CARDIOVASCULAR: Irregular rhythm and rate controlled, normal S1, S2. RESPIRATORY: Clear to auscultate in the upper lobes. ABDOMINAL: soft, positive bowl sounds in all four quadrants, no distended no fluid wave noted. 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 #BEHAVIORAL HEALTH SPECIALIST will give morphine and ativan for SOB, Anxiety. Continue stool softeners continue lasix to keep the fluid under control. Home hospice. Oxygen if required. 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 #New onset Atrial fibrillation (rate controlled at rest) - VICKIE-VASC score: 5 #GIB ongoing. #Chronic Leukocytosis possibly 2/2 baseline amyloidosis, chemo and chronic steroids. #Hyperlipidemia #Vitamin D deficiency. #Vitamin B12 deficiency. Continue vitamin B12. #Subclinical hypothyroidism DISPOSITION: Home hospice. VS,Fishbone, I+O VS, Fishbone, I+O Vital Signs Date Time Temp Pulse Resp B/P (MAP) Pulse Ox O2 Delivery O2 Flow Rate FiO2 03/02/19 06:00 97.6 85 18 123/71 (88) 98 I&O- Last 24 Hours up to 6 AM 03/05/19 06:00 Intake Total 1430 ml Output Total 750 ml Balance 680 ml TEMO MENDIOLA MD March 05, 2019 11:38
[2019-03-06] MEDS ORDERED: RAMELTEON 8 MG TAB (ROZEREM) PO ONE (03:30)
[2019-03-06] MEDS: FUROSEMIDE 40 MG TAB PO SCH ×2 (08:10→16:23)
[2019-03-06] MEDS: MIRALAX *UNIT DOSE* 17GM PACKET PO SCH ×2 (08:10→19:57)
[2019-03-06] MEDS: DOCUSATE SODIUM 100 MG CAP PO SCH ×2 (08:10→19:57)
--- NOTE | 2019-03-06 12:51 | IPNPDOC ---
Text Note Date of Service The patient was seen on 03/06/19. NOTE SUBJECTIVE: Patient seen and examined at bedside. No acute overnight events reported, and no new medical complaints. 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 #New onset Atrial fibrillation (rate controlled at rest) - VICKIE-VASC score: 5 #GIB ongoing. #Chronic Leukocytosis possibly 2/2 baseline amyloidosis, chemo and chronic s teroids. #Hyperlipidemia #Vitamin D deficiency. #Vitamin B12 deficiency. Continue vitamin B12. #Subclinical hypothyroidism DISPOSITION: Pending placement - hospice VS,Fishbone, I+O VS, Fishbone, I+O Vital Signs Date Time Temp Pulse Resp B/P (MAP) Pulse Ox O2 Delivery O2 Flow Rate FiO2 03/02/19 06:00 97.6 85 18 123/71 (88) 98 I&O- Last 24 Hours up to 6 AM 03/06/19 06:00 Intake Total 1120 ml Output Total 1000 ml Balance 120 ml TEMO MENDIOLA MD March 06, 2019 12:51
[2019-03-07] MEDS: FUROSEMIDE 40 MG TAB PO SCH ×2 (08:17→16:14)
--- NOTE | 2019-03-07 10:41 | IPNPDOC ---
Text Note Date of Service The patient was seen on 03/07/19. NOTE SUBJECTIVE: Patient seen and examined at bedside. No acute overnight events reported, and no new medical complaints. 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 He is now in AREA FIELD MANAGER status. 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 #New onset Atrial fibrillation (rate controlled at rest) - VICKIE-VASC score: 5 #GIB ongoing. #Chronic Leukocytosis possibly 2/2 baseline amyloidosis, chemo and chronic steroids. #Hyperlipidemia #Vitamin D deficiency. #Vitamin B12 deficiency. Continue vitamin B12. #Subclinical hypothyroidism DISPOSITION: Pending placement - hospice meeting planned with patient 03/10/19 VS,Audra, I+O VS, Fishbone, I+O Vital Signs Date Time Temp Pulse Resp B/P (MAP) Pulse Ox O2 Delivery O2 Flow Rate FiO2 03/02/19 06:00 97.6 85 18 123/71 (88) 98 I&O- Last 24 Hours up to 6 AM 03/07/19 06:00 Intake Total 930 ml Output Total 950 ml Balance -20 ml TEMO MENDIOLA MD March 07, 2019 10:41
[2019-03-08] MEDS: FUROSEMIDE 40 MG TAB PO SCH ×2 (08:26→16:13)
[2019-03-08] MEDS: DOCUSATE SODIUM 100 MG CAP PO SCH (08:26)
[2019-03-08] MEDS: MIRALAX *UNIT DOSE* 17GM PACKET PO SCH (08:26)
--- NOTE | 2019-03-08 11:59 | IPNPDOC ---
Text Note Date of Service The patient was seen on 03/08/19. NOTE SUBJECTIVE: Patient seen and examined at bedside. No acute overnight events reported, and no new medical complaints. 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 He is now in PLANT AND EQUIPMENT WORKER status. 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 #New onset Atrial fibrillation (rate controlled at rest) - VICKIE-VASC score: 5 #GIB ongoing. #Chronic Leukocytosis possibly 2/2 baseline amyloidosis, chemo and chronic steroids. #Hyperlipidemia #Vitamin D deficiency. #Vitamin B12 deficiency. Continue vitamin B12. #Subclinical hypothyroidism DISPOSITION: Pending placement; meeting with hospice planned for 03/10/19 VS,Fishbone, I+O VS, Fishbone, I+O Vital Signs Date Time Temp Pulse Resp B/P (MAP) Pulse Ox O2 Delivery O2 Flow Rate FiO2 03/02/19 06:00 97.6 85 18 123/71 (88) 98 I&O- Last 24 Hours up to 6 AM 03/08/19 06:00 Intake Total 630 ml Output Total 750 ml Balance -120 ml TEMO MENDIOLA MD March 08, 2019 11:59
[2019-03-08] MEDS ORDERED: RAMELTEON 8 MG TAB (ROZEREM) PO ONE (20:30)
[2019-03-09] MEDS: FUROSEMIDE 40 MG TAB PO SCH ×2 (07:20→16:25)
[2019-03-09] MEDS: DOCUSATE SODIUM 100 MG CAP PO SCH (07:20)
[2019-03-09] MEDS: MIRALAX *UNIT DOSE* 17GM PACKET PO SCH (07:20)
--- NOTE | 2019-03-09 11:24 | IPNPDOC ---
Text Note Date of Service The patient was seen on 03/09/19. NOTE SUBJECTIVE: Patient seen and examined at bedside. No acute overnight events reported, and no new medical complaints. 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 He is now in VIDEO SOFTWARE ENGINEER status. 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 #New onset Atrial fibrillation (rate controlled at rest) - VICKIE-VASC score: 5 #GIB ongoing. #Chronic Leukocytosis possibly 2/2 baseline amyloidosis, chemo and chronic steroids. #Hyperlipidemia #Vitamin D deficiency. #Vitamin B12 deficiency. Continue vitamin B12. #Subclinical hypothyroidism DISPOSITION: Pending placement; meeting with hospice planned for 03/10/19 VS,Fishbone, I+O VS, Fishbone, I+O I&O- Last 24 Hours up to 6 AM 03/09/19 06:00 Intake Total 1050 ml Output Total 800 ml Balance 250 ml TEMO MENDIOLA MD March 09, 2019 11:24
[2019-03-09] MEDS: ACETAMINOPHEN TAB 650MG DOSE (2X325MG) PO PRN ×2 (13:40→23:45)
[2019-03-10] MEDS: MIRALAX *UNIT DOSE* 17GM PACKET PO SCH (09:00)
[2019-03-10] MEDS: DOCUSATE SODIUM 100 MG CAP PO SCH (09:00)
[2019-03-10] MEDS: FUROSEMIDE 40 MG TAB PO SCH ×2 (09:00→17:00)
--- NOTE | 2019-03-10 13:01 | IPNPDOC ---
Text Note Date of Service The patient was seen on 03/10/19. NOTE SUBJECTIVE: Patient seen and examined at bedside. No acute overnight events reported, and no new medical complaints. 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 He is now in GUT DROPPER status. 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 #New onset Atrial fibrillation (rate controlled at rest) - VICKIE-VASC score: 5 #GIB ongoing. #Chronic Leukocytosis possibly 2/2 baseline amyloidosis, chemo and chronic steroids. #Hyperlipidemia #Vitamin D deficiency. #Vitamin B12 deficiency. Continue vitamin B12. #Subclinical hypothyroidism DISPOSITION: Pending placement; meeting with hospice planned for today VS,Fishbone, I+O VS, Fishbone, I+O I&O- Last 24 Hours up to 6 AM 03/10/19 06:00 Intake Total 900 ml Output Total 950 ml Balance -50 ml TEMO MENDIOLA MD March 10, 2019 13:01
[2019-03-11] MEDS: ACETAMINOPHEN TAB 650MG DOSE (2X325MG) PO PRN ×2 (04:02→08:12)
[2019-03-11] MEDS: FUROSEMIDE 40 MG TAB PO SCH (08:11)
[2019-03-11] MEDS: MIRALAX *UNIT DOSE* 17GM PACKET PO SCH (08:12)
[2019-03-11] MEDS: DOCUSATE SODIUM 100 MG CAP PO SCH (08:12)
[2019-03-11] MEDS ORDERED: MORP20SO3 PO (09:42)
[2019-03-11] MEDS ORDERED: FURO40TA2 PO (09:42)
[2019-03-11] MEDS ORDERED: HYOS125TA PO (09:42)
[2019-03-11] MEDS ORDERED: LORA0.5T11 PO (09:42)
--- NOTE | 2019-03-11 17:52 | DSES ---
DATE OF ADMISSION: 02/19/2019 DATE OF DISCHARGE: 03/11/2019 PRIMARY CARE PROVIDER: Dr. Polo Kraus CONSULTANTS: Nephrology. DISCHARGE DIAGNOSES: 1. Acute renal failure superimposed on chronic kidney disease (CKD), stage IV. 2. Primary amyloidosis. 3. Diastolic congestive heart failure. 4. Atrial fibrillation. 5. Gastrointestinal (GI) bleeding. 6. Chronic leukocytosis. 7. Dyslipidemia. 8. Vitamin D deficiency. 9. B12 deficiency. 10. Subclinical hypothyroidism. HOSPITAL COURSE: The patient is a 79-year-old gentleman who presented to [facility] on 02/19/2019 with the complaint of shortness of breath. The patient admitted under hospitalist service for suspected congestive heart failure exacerbation. The patient was started on diuretics. Echocardiogram ordered. The patient also noted to have melanotic stool. Anemia workup started. Due to acute renal failure on chronic kidney disease, circular knitter helper was consulted. The patient was found to have new onset of atrial fibrillation. Risks and benefits of anticoagulation were discussed with the patient. The patient refused anticoagulation. Hemoglobin and hematocrit remained stable and no blood transfusion needed. The patient did demonstrate significant deconditioning and the patient continued to work physical therapy. However, the patient declined the recommendation for the rehabilitation. Later, he is open to discuss the case with the palliative care services. Per the patient's oncologist, Dr. Alberto, the patient has a very poor overall prognosis. As per nephrology, the patient's renal status is not likely to recover. After several discussions, the patient wished for COMFORT MEASURES ONLY (CRACKING UNIT OPERATOR) and hospice was consulted. Later, hospice service, test case developer and social worker palliative care have been assisting on the hospice placement. Later, the patient found room assignment for the hospice house and on 03/11/2019, the patient is discharged from [facility]. LABORATORY DATA: Most recent laboratory data was done on 03/01/2019 and showed WBC of 18.2, hemoglobin 9.5, hematocrit is 29.5, platelet count is 337. Sodium 134, potassium 4.2, chloride is 105, carbon dioxide 20, BUN 45, creatinine is 3.45, GFR is 18.4, fasting glucose 104, calcium 7.2, magnesium 2. Stool occult blood test on 02/22/2019 is positive. Urine study showed urine 24-hour total protein is 20,805. Urine random total protein 785. UPEP showed no M spike. IMAGING STUDIES: CT of the chest without contrast demonstrates moderate bilateral pleural effusion and compressive atelectasis at both lung bases. Bilateral geographic ground-glass opacity in the mid and upper lung zones may represent atelectasis and/or mosaic perfusion. Small pericardial effusion or pericardial thickening. Bilateral adrenal hyperplasia. Renal ultrasound demonstrates increased renal cortical echogenicity pattern bilaterally. No hydronephrosis seen. Moderate-sized bilateral pleural effusions. DISCHARGE MEDICATIONS: - Lasix 40 mg by mouth twice a day for comfort - hyoscyamine 0.125 mg by mouth every four hours as needed for terminal secretions - lorazepam 0.5 mg by mouth every four hours as needed for anxiety or agitation - morphine sulfate 0.25 to 1 mL by mouth every two hours as needed for shortness of breath DISCHARGE INSTRUCTIONS: Discharge the patient to hospice house. Activity as tolerated. Diet as tolerated. DISCHARGE CONDITION: Extremely poor. DISCHARGE TIME: Greater than 30 minutes including coordination of the discharge planning.
== END 2019-03-11 12:13 | disposition hospice, inpatient (51) | DRG 545 ==
LOC: M ED 16:55 → M ED INP 22:10 → M PCU 02-20 14:15 → M MSPAV 02-24 18:11
PROVIDERS: ADMIT Internal Medicine; ATTEND Internal Medicine
DX: E85.81 Light chain (AL) amyloidosis (principal); I50.33 Acute on chronic diastolic (congestive) heart failure; N18.4 Chronic kidney disease, stage 4 (severe); N17.9 Acute kidney failure, unspecified; K92.1 Melena; E87.2 Acidosis; N04.9 Nephrotic syndrome with unspecified morphologic changes; E46 Unspecified protein-calorie malnutrition; E53.8 Deficiency of other specified B group vitamins; E78.5 Hyperlipidemia, unspecified; E87.6 Hypokalemia; I48.91 Unspecified atrial fibrillation; D64.9 Anemia, unspecified; E55.9 Vitamin D deficiency, unspecified; E02 Subclinical iodine-deficiency hypothyroidism; Z79.82 Long term (current) use of aspirin; Z79.899 Other long term (current) drug therapy; Z51.5 Encounter for palliative care